=== PATIENT | female | born 1955 | race Caucasian/White ===

== ENCOUNTER → 2016-11-20 | Outpatient (CLI) | payer OTHER ==
[~2016-11-20] MED LIST: ASCO10003 PO; CALC-51 PO; CHOL1000 PO; CHOL1TAB42 PO; DILT-115 PO; EPP3/2 IM; MULT-190 PO; MULT1TAB22 PO; OMEG10007 PO; OMEP40CA PO; OMEP40CA41 PO
== END | disposition home or self-care (01) ==
LOC: C.PAPS 12:54
PROVIDERS: ATTEND Obstetrics & Gynecology
DX: Z12.4 Encounter for screening for malignant neoplasm of cervix (principal); Z87.42 Personal history of other diseases of the female genital tract; Z78.0 Asymptomatic menopausal state

== ENCOUNTER 2017-03-25 13:35 | Emergency (ER) | payer OTHER ==
[~2017-03-25] VITALS: Ht 162.6 cm; Wt 63.5 kg
[~2017-03-25 13:35] MED LIST changes: -CALC-51 PO; -CHOL1TAB42 PO; -MULT1TAB22 PO; -OMEG10007 PO; -OMEP40CA41 PO
[2017-03-25 13:50] VITALS: TEMP 36.9; Ht 162.6 cm; Wt 63.5 kg
[2017-03-25] MEDS ORDERED: OMEP40CA41 PO (14:53)
[2017-03-25] MEDS ORDERED: SODIUM CHLORIDE 0.9% 500ML 500 ML IV STA (15:32)
[2017-03-25] MEDS ORDERED: KETOROLAC TROMETHAMINE 30 MG/ML VIAL IV STA (15:32)
[2017-03-25 15:50] LABS: BASO % 0.5 %; BASO ABS # 0.04 K/uL (0-0.2); COMPLETE YES; EOS % 5.4 %; HEMATOCRIT 40.9 % (37-47); IG% 0.1 %; LYMPH % 28.7 %; LYMPH ABS # 2.54 K/uL (1.2-3.4); MEAN CELL VOLUME 95.3 fL (80-100); MEAN CORPUSCULAR HEMOGLOBIN 31.9 pg (25-34); MEAN CORPUSCULAR HGB CONC 33.5 g/dl (32-36); MEAN PLATELET VOLUME 9.8 fL (7.4-10.4); MONO % 5.9 %; NEUT % 59.4 %; PLATELET COUNT 293 K/uL (130-400); RED BLOOD COUNT 4.29 M/uL (4.2-5.4); WHITE BLOOD COUNT 8.85 K/uL (4.8-10.8)
--- NOTE | 2017-03-25 16:00 | EMERGENCY ROOM VISIT NOTE ---
History Report prepared by Maryam: Suzie Boyd Under the Supervision of: Dr. Kelechi Stevens D.O. First contact with patient: 15:04 Chief Complaint: HEAD PAIN Stated Complaint: HEAD PAIN, NUMBNESS History of Present Illness The patient is a 61 year old female who presents to the Emergency Room with complaints of a persistent headache starting about 8 days ago. She started having pain in the back of her head which has now resolved. She also complains of tingling and burning pain behind her ears bilaterally which radiates down to her neck. She also currently complains of frontal headache. She has been applying ice without relief. She has also been taking Aleve without relief. She denies any recent trauma or falls. She has a history of osteoporosis. Pt denies change in vision, fevers, chest pain, shortness of breath, nausea, vomiting, diarrhea, pain with urination, melena, and numbness/weakness in upper or lower extremities. Source of History: patient Onset: about 8 days ago Position: head Timing: other (persistent) Modifying Factors (Relieving): ice (without relief), other (Aleve without relief) Associated Symptoms: No SOB, No chest pain, No diarrhea, No fevers, No nausea, No numbness, No vomiting, No weakness Review of Systems See HPI for pertinent positives & negatives. A total of 10 systems reviewed and were otherwise negative. Past Medical & Surgical Medical Problems: (1) SVT (supraventricular tachycardia) Family History Cancer Hypertension Kidney disease Kidney stones Social History Smoking Status: Current Every Day Smoker Alcohol Use: occasionally, other Housing Status: lives with significant other Occupation Status: employed Current/Historical Medications Scheduled Ascorbic Acid (Vitamin C), 1 TAB PO 1000 Calcium Carbonate-Vitamin D (Calcium), 1 TAB PO DAILY Cholecalciferol (Vitamin D), 5,000 UNITS PO DAILY Diltiazem Hcl Ext Rel (Tiazac), 240 MG PO QAM Fish Oil (Cornelia-3), 1 CAP PO DAILY Multiple Vitamins W/ Minerals (One Daily For Women), 1 TAB PO 1000 Ocuvite Preservision (Ocuvite Preservision), 1 TAB PO QAM Scheduled PRN Epinephrine (Epipen), 0.3 MG IM UD PRN for ALLERGIC REACTION Allergies Coded Allergies: Crystal (Verified Allergy, Severe, ANAPHYLAXIS, 06/13/16) Pascale (Verified Allergy, Severe, ANAPHYLAXIS, 06/13/16) [place] (Verified Allergy, Severe, ANAPHYLAXIS, 06/13/16) 0 Tomato (Verified Allergy, Mild, TESTED POSITIVE ON SCRATCH TEST, 06/13/16) Beef (Unverified Allergy, Unknown, itch hives , 06/13/16) [place] Oil (Verified Allergy, Unknown, itch, 06/13/16) Milk (Verified Allergy, Unknown, HIVES, 06/13/16) Poultry Meal (Unverified Allergy, Unknown, itch hives , 06/13/16) Shellfish (Verified Allergy, Unknown, TESTED POSTITIVE ON SCRATCH TEST, ) Physical Exam Vital Signs Date Time Temp Pulse Resp B/P Pulse Ox O2 Delivery O2 Flow Rate FiO2 03/25/17 16:46 62 16 133/74 96 Room Air 03/25/17 14:57 78 20 140/78 96 Room Air 03/25/17 13:50 36.9 78 20 137/72 99 Room Air Physical Exam GENERAL: Sitting up in bed, no acute distress, non-toxic EYE EXAM: normal conjunctiva, PERRL and EOM's intact OROPHARYNX: no exudate, no erythema, lips, buccal mucosa, and tongue normal and mucous membranes are moist NECK: supple, no nuchal rigidity, no adenopathy, non-tender LUNGS: Clear to auscultation. Normal chest wall mechanics HEART: no murmurs, S1 normal and S2 normal ABDOMEN: abdomen soft, non-tender, normo-active bowel sounds, no masses, no rebound or guarding. BACK: Back is symmetrical on inspection and there is no deformity, no midline tenderness, no CVA tenderness. SKIN: no rashes and no bruising UPPER EXTREMITIES: upper extremities are grossly normal. LOWER EXTREMITIES: No pitting edema. Calves are equal bilaterally. NEURO EXAM: Normal sensorium, cranial nerves II-XII intact, normal speech, no weakness of arms, no weakness of legs. No drift. Finger to nose intact. Gross sensation intact. Medical Decision & Procedures ER Provider Diagnostic Interpretation: CT:Per my review, radiologist interpretation. CT SCAN OF THE CERVICAL SPINE CLINICAL HISTORY: Neck pain. COMPARISON STUDY: Radiographs of the cervical spine dated 02/14/2016. TECHNIQUE: CT scan of the cervical spine is performed from the skull base to the upper thoracic spine. Images are reviewed in the axial, sagittal, and coronal planes. IV contrast was not administered for this examination. CT DOSE: Reported separately under the concurrently performed CT scan of the brain. FINDINGS: Skeletal structures: The skeletal structures are osteopenic. There is no evidence of fracture or subluxation involving the cervical spine. Vertebral body height is maintained. There is minimal anterolisthesis at C4-C5. Alignment is otherwise preserved. Small anterior osteophytes are seen throughout. There is straightening of the cervical lordosis with reversal centered at C4-C5. The odontoid process and lateral masses are intact. The atlantoaxial articulation is preserved. The spinous processes appear intact. Degenerative endplate sclerosis is noted at C3-C4, C5-C6, and C6-C7. There is mild to moderate multilevel cervical spondylosis. Uncovertebral and facet arthropathy contribute to neural foraminal narrowing at several levels. This is greatest in the lower cervical region. Intervertebral discs: There is moderate degenerative disc space narrowing seen at C6-C7. Mild narrowing is seen from C3 -C4 through C5-C6. Central canal: Posterior disc osteophyte complexes at C3-C4, C4-C5, C5-C6, and C6-C7 likely contribute to mild acquired compromise of the central canal. Soft tissues: The prevertebral and paraspinous soft tissues are within normal limits. There is mild atherosclerotic calcification of the carotid bulbs. A Tornwaldt cyst containing calcifications is suggested in the midline pharynx and measures up to 1.7 cm. There are numerous calcified tonsilliths identified. Calvarium: The visualized calvarium at the skull base appears intact. Brain parenchyma: Partially visualized brain parenchyma the skull base is within normal limits. Sinuses and mastoids: The visualized paranasal sinuses are clear. The mastoid air cells are well pneumatized. Lung apices: Mild emphysematous change is suggested. Apical lung parenchyma is otherwise clear as imaged. IMPRESSION: 1. There is no evidence of fracture or subluxation involving the cervical spine. 2. Osteopenia and spondylotic change as above. Electronically signed by: Loyd Schultz M.D. 03/25/2017 4:49 PM Dictated Date/Time: 03/25/2017 4:[address] SCAN OF THE BRAIN WITHOUT IV CONTRAST CLINICAL HISTORY: Headache. COMPARISON STUDY: No priors. TECHNIQUE: Unenhanced axial CT scan of the brain is performed from the vertex to the skull base. Automated dose control exposure was utilized. CT DOSE: 927.29 mGy.cm FINDINGS: Brain parenchyma: The brain parenchyma is normal in appearance. There is no hemorrhage, mass effect, or evidence of acute territorial ischemia by CT criteria. Gutierrez-white matter is preserved. No extra-axial fluid collection is seen. Ventricles, sulci, cisterns: Normal in configuration. Intracranial vasculature: The visualized intracranial vasculature at the skull base is normal in appearance. Calvarium: Unremarkable. Sinuses and mastoids: The visualized paranasal sinuses are clear. The mastoid air cells are well pneumatized. Orbits: The bony orbits are grossly intact. IMPRESSION: No acute intracranial abnormality. Electronically signed by: Loyd Schultz M.D. 03/25/2017 4:40 PM Dictated Date/Time: 03/25/2017 4:38 PM Laboratory Results 03/25/17 15:38 Red Blood Count 4.29, Mean Corpuscular Volume 95.3, Mean Corpuscular Hemoglobin 31.9, Mean Corpuscular Hemoglobin Concent 33.5, Mean Platelet Volume 9.8, Neutrophils (%) (Auto) 59.4, Lymphocytes (%) (Auto) 28.7, Monocytes (%) (Auto) 5.9, Eosinophils (%) (Auto) 5.4, Basophils (%) (Auto) 0.5, Neutrophils # (Auto) 5.26, Lymphocytes # (Auto) 2.54, Monocytes # (Auto) 0.52, Eosinophils # (Auto) 0.48, Basophils # (Auto) 0.04 03/25/17 15:38 Test 03/25/17 15:38 White Blood Count 8.85 K/uL (4.8-10.8) Red Blood Count 4.29 M/uL (4.2-5.4) Hemoglobin 13.7 g/dL (12.0-16.0) Hematocrit 40.9 % (37-47) Mean Corpuscular Volume 95.3 fL (80-100) Mean Corpuscular Hemoglobin 31.9 pg (25-34) Mean Corpuscular Hemoglobin Concent 33.5 g/dl (32-36) Platelet Count 293 K/uL (130-400) Mean Platelet Volume 9.8 fL (7.4-10.4) Neutrophils (%) (Auto) 59.4 % Lymphocytes (%) (Auto) 28.7 % Monocytes (%) (Auto) 5.9 % Eosinophils (%) (Auto) 5.4 % Basophils (%) (Auto) 0.5 % Neutrophils # (Auto) 5.26 K/uL (1.4-6.5) Lymphocytes # (Auto) 2.54 K/uL (1.2-3.4) Monocytes # (Auto) 0.52 K/uL (0.11-0.59) Eosinophils # (Auto) 0.48 K/uL (0-0.5) Basophils # (Auto) 0.04 K/uL (0-0.2) RDW Standard Deviation 43.3 fL (36.4-46.3) RDW Coefficient of Variation 12.6 % (11.5-14.5) Immature Granulocyte % (Auto) 0.1 % Immature Granulocyte # (Auto) 0.01 K/uL (0.00-0.02) Anion Gap 6.0 mmol/L (3-11) Est Creatinine Clear Calc Drug Dose 57.5 ml/min Estimated GFR () 80.0 Estimated GFR (Non- 69.1 BUN/Creatinine Ratio 20.9 (10-20) Calcium Level 8.8 mg/dl (8.5-10.1) Laboratory results per my review. Medications Administered Medications (Trade) Dose Ordered Sig/Benji Route Start Time Stop Time Status Last Admin Dose Admin Sodium Chloride (Nss 500ml) 500 ml @ 999 mls/hr Q31M STAT IV 03/25/17 15:32 03/25/17 16:02 DC 03/25/17 15:44 999 MLS/HR Ketorolac Tromethamine (Toradol Inj) 30 mg NOW STAT IV 03/25/17 15:32 03/25/17 15:33 DC 03/25/17 15:44 30 MG ED Course ED COURSE: Vital signs were reviewed and showed hypertensive. The patients medical record was reviewed The above diagnostic studies were performed and reviewed. ED treatments and interventions as stated above. 1504: The patient was evaluated in room A11B. A complete history and physical examination was performed. 1532: Toradol Inj 30 mg IV, Sodium Chloride 500 ml @ 999 mls/hr IV 1602: I reevaluated the patient who is doing well. 1712: Upon reevaluation, the patient is resting comfortably.I discussed my findings with the patient and she understands and agrees with the treatment plan. Based on the patients age, coexisting illnesses, exam and lab findings the decision to treat as an outpatient was made. The patient remained stable while under my care. The patient appeared well at the time of discharge. Medical Decision Differential Diagnosis includes but is not limited to headache, tension headache , cluster headache, migraine, subarachnoid hemorrhage, meningitis, mass, central venous thrombus, concussion, trauma and epidural/subdural hemorrhage. Blood pressure screening: Patient was found to have normal blood pressure on screening and does not require follow-up. Medication Reconciliation: I attest that I have personally reviewed the patient' s current medication list. Patient is a 61-year-old female who presents the ER for posterior occipital headache and a burning/numbness feeling which initially encompassed her entire occiput but is now located slightly laterally from the midline of her head tracking to the top of her head. She notes the numbness has been improving. The headache did start on Friday. Headache came on gradually and is not the worse headache of her life. No fevers. She has no nuchal rigidity. She was referred in by her primary care doctor. CBC along with BMP was unremarkable. CT head and cervical spine were negative. Patient was updated in regards to her findings. She was given a bolus normal saline and Toradol. She had slight improvement of her symptoms and was discharged follow-up with her primary care doctor for likely occipital neuralgia. Discussed with Pt concerning signs and symptoms to watch out for. Pt was instructed to follow up with their PCP and discussed with the patient their option to return to the ED at anytime for persistent or worsening symptoms. The appropriate anticipatory guidance and out- patient management, including indications for return to the emergency department , were explained at length to the patient and understood. Impression Primary Impression: MILLAN (headache) Scribe Attestation The scribe's documentation has been prepared under my direction and personally reviewed by me in its entirety. I confirm that the note above accurately reflects all work, treatment, procedures, and medical decision making performed by me. Departure Information Dispostion Home / Self-Care Referrals No Doctor, Assigned (PCP) Forms HOME CARE DOCUMENTATION FORM, IMPORTANT VISIT INFORMATION, WORK / SCHOOL INSTRUCTIONS Patient Instructions Headache Pain, My [id number] Additional Instructions Please follow up with your primary care doctor with in the next 24 hours. Any worsening of your symptoms, please return to the ED immediately. This includes weakness or numbness in your arms or legs, change in vision, confusion, fevers greater than 100.4, or any other concerning signs or symptoms from your standpoint. Please use Motrin and Tylenol as needed for pain and heat when resting. Please refrain from any heavy lifting. Problem Qualifiers Primary Impression: MILLAN (headache) Headache type: unspecified Headache chronicity pattern: acute headache Intractability: not intractable Qualified Codes: R51 - Headache
[2017-03-25] MEDS ORDERED: OMEG10007 PO (16:01)
[2017-03-25] MEDS ORDERED: CHOL1TAB42 PO (16:01)
[2017-03-25] MEDS ORDERED: CALC-51 PO (16:02)
[2017-03-25 16:15] LABS: BUN/CREATININE RATIO 20.9 (10-20); CALCIUM 8.8 mg/dl (8.5-10.1); CREATININE 0.91 mg/dl (0.60-1.20); POTASSIUM 4.1 mmol/L (3.5-5.1)
--- NOTE | 2017-03-25 16:41 | DIAGNOSTIC IMAGING REPORT ---
CT SCAN OF THE BRAIN WITHOUT IV CONTRAST CLINICAL HISTORY: Headache. COMPARISON STUDY: No priors. TECHNIQUE: Unenhanced axial CT scan of the brain is performed from the vertex to the skull base. Automated dose control exposure was utilized. CT DOSE: 927.29 mGy.cm FINDINGS: Brain parenchyma: The brain parenchyma is normal in appearance. There is no hemorrhage, mass effect, or evidence of acute territorial ischemia by CT criteria. Gutierrez-white matter is preserved. No extra-axial fluid collection is seen. Ventricles, sulci, cisterns: Normal in configuration. Intracranial vasculature: The visualized intracranial vasculature at the skull base is normal in appearance. Calvarium: Unremarkable. Sinuses and mastoids: The visualized paranasal sinuses are clear. The mastoid air cells are well pneumatized. Orbits: The bony orbits are grossly intact. IMPRESSION: No acute intracranial abnormality. Electronically signed by: Loyd Schultz M.D. 03/25/2017 4:40 PM Dictated Date/Time: 03/25/2017 4:38 PM
[2017-03-25 16:46] VITALS: BP 133/74; PULSE 62; O2SAT 96
--- NOTE | 2017-03-25 16:50 | DIAGNOSTIC IMAGING REPORT ---
CT SCAN OF THE CERVICAL SPINE CLINICAL HISTORY: Neck pain. COMPARISON STUDY: Radiographs of the cervical spine dated 02/14/2016. TECHNIQUE: CT scan of the cervical spine is performed from the skull base to the upper thoracic spine. Images are reviewed in the axial, sagittal, and coronal planes. IV contrast was not administered for this examination. CT DOSE: Reported separately under the concurrently performed CT scan of the brain. FINDINGS: Skeletal structures: The skeletal structures are osteopenic. There is no evidence of fracture or subluxation involving the cervical spine. Vertebral body height is maintained. There is minimal anterolisthesis at C4-C5. Alignment is otherwise preserved. Small anterior osteophytes are seen throughout. There is straightening of the cervical lordosis with reversal centered at C4-C5. The odontoid process and lateral masses are intact. The atlantoaxial articulation is preserved. The spinous processes appear intact. Degenerative endplate sclerosis is noted at C3-C4, C5-C6, and C6-C7. There is mild to moderate multilevel cervical spondylosis. Uncovertebral and facet arthropathy contribute to neural foraminal narrowing at several levels. This is greatest in the lower cervical region. Intervertebral discs: There is moderate degenerative disc space narrowing seen at C6-C7. Mild narrowing is seen from C3 -C4 through C5-C6. Central canal: Posterior disc osteophyte complexes at C3-C4, C4-C5, C5-C6, and C6-C7 likely contribute to mild acquired compromise of the central canal. Soft tissues: The prevertebral and paraspinous soft tissues are within normal limits. There is mild atherosclerotic calcification of the carotid bulbs. A Tornwaldt cyst containing calcifications is suggested in the midline pharynx and measures up to 1.7 cm. There are numerous calcified tonsilliths identified. Calvarium: The visualized calvarium at the skull base appears intact. Brain parenchyma: Partially visualized brain parenchyma the skull base is within normal limits. Sinuses and mastoids: The visualized paranasal sinuses are clear. The mastoid air cells are well pneumatized. Lung apices: Mild emphysematous change is suggested. Apical lung parenchyma is otherwise clear as imaged. IMPRESSION: 1. There is no evidence of fracture or subluxation involving the cervical spine. 2. Osteopenia and spondylotic change as above. Electronically signed by: Loyd Schultz M.D. 03/25/2017 4:49 PM Dictated Date/Time: 03/25/2017 4:42 PM
[2017-03-25] MEDS ORDERED: MULT1TAB22 PO (20:19)
[2017-09-11] MEDS ORDERED: PSYL48.59 PO (08:23)
[2017-09-17] MEDS ORDERED: OXYC-57 PO (10:48)
[2017-09-17] MEDS ORDERED: KETO10TA PO (10:48)
[2017-09-17] MEDS ORDERED: ASPEC325 PO (10:48)
== END 2017-03-25 17:27 | disposition home or self-care (01) ==
LOC: C.EDB 13:39 → C.EDA 17:27
DX: R51 Headache (principal); M81.0 Age-related osteoporosis without current pathological fracture; I47.1 Supraventricular tachycardia; F17.200 Nicotine dependence, unspecified, uncomplicated; Z82.49 Family history of ischemic heart disease and other diseases of the circulatory system; Z84.1 Family history of disorders of kidney and ureter

== ENCOUNTER → 2017-07-05 | Outpatient (CLI) | payer OTHER ==
[~2017-07-05] MED LIST changes: +CALC-51 PO; -CHOL1000 PO; +CHOL1TAB42 PO; +MULT1TAB22 PO; +OMEG10007 PO; -OMEP40CA PO
[2017-07-05 14:09] LABS: ALT/SGPT 24 U/L (12-78); BLOOD UREA NITROGEN 15 mg/dl (7-18); BUN/CREATININE RATIO 18.3 (10-20); CALCIUM 9.1 mg/dl (8.5-10.1); CARBON DIOXIDE 27 mmol/L (21-32); CHLORIDE 105 mmol/L (98-107); CHOLESTEROL 194 mg/dl (0-200); GLUCOSE 94 mg/dl (70-99); POTASSIUM 3.9 mmol/L (3.5-5.1); SODIUM 139 mmol/L (136-145)
[2017-07-05 14:20] LABS: ALB/GLOB RATIO 1.3 (0.9-2); ALKALINE PHOSPHATASE 76 U/L (45-117); AST/SGOT 17 U/L (15-37); CHOLESTEROL/HDL RATIO 3.2; HDL CHOLESTEROL 61 mg/dl; LDL CHOLESTEROL CALCULATED 117 mg/dl; TRIGLYCERIDES 79 mg/dl (0-150); VERY LOW DENSITY LIPOPROT CALC 16 mg/dl
[2017-07-05 14:23] LABS: ESTIMATED AVERAGE GLUCOSE 111 mg/dl; HA1C FLAG Normal (Normal)
== END | disposition home or self-care (01) ==
LOC: C.LABBC 07:35
PROVIDERS: ATTEND Internal Medicine
DX: Z00.00 Encounter for general adult medical examination without abnormal findings (principal); Z11.59 Encounter for screening for other viral diseases

== ENCOUNTER → 2017-09-08 | Outpatient (CLI) | payer OTHER ==
[~2017-09-08] MED LIST changes: +PSYL48.59 PO
[2017-09-08 17:36] LABS: POTASSIUM 3.6 mmol/L (3.5-5.1)
[2017-09-08 17:42] LABS: BASO % 0.4 %; BASO ABS # 0.04 K/uL (0-0.2); COMPLETE YES; EOS % 4.4 %; HEMATOCRIT 41.8 % (37-47); IG% 0.2 %; LYMPH % 36.1 %; LYMPH ABS # 3.22 K/uL (1.2-3.4); MEAN CELL VOLUME 94.4 fL (80-100); MEAN CORPUSCULAR HEMOGLOBIN 32.5 pg (25-34); MEAN CORPUSCULAR HGB CONC 34.4 g/dl (32-36); MEAN PLATELET VOLUME 10.7 fL (7.4-10.4); MONO % 7.1 %; NEUT % 51.8 %; PLATELET COUNT 317 K/uL (130-400); RED BLOOD COUNT 4.43 M/uL (4.2-5.4); WHITE BLOOD COUNT 8.92 K/uL (4.8-10.8)
== END | disposition home or self-care (01) ==
LOC: C.LABBC 13:22
PROVIDERS: ATTEND Orthopaedic Surgery Sports Medicine
DX: Z01.812 Encounter for preprocedural laboratory examination (principal)

== ENCOUNTER → 2017-09-17 | Day surgery (SDC) | payer OTHER ==
[2017-09-11 08:20] VITALS: Ht 165.1 cm; Wt 61.4 kg
[~2017-09-17] VITALS: Ht 165.1 cm; Wt 61.4 kg
[~2017-09-17] MED LIST changes: +ASPEC325 PO; +ATROPINE SULFATE 0.1 MG/ML 5ML SYR IV PRN; +BUPIVACAINE 0.5 % 5 MG/1 ML PF 10ML VIAL ONE; +BUPIVACAINE/EPINEPHRINE 0.5% MPF 1:200,000 30 ML VIAL ONE; -CALC-51 PO; +CEFAZOLIN 1000MG IV PUSH 5 ML IV SCH; +CEFAZOLIN SOD 1000MG/5 ML IV PUSH IV ONE; +DEXAMETHASONE SOD INJ 4 MG/ML VIAL ONE; +EpHEDrine SULFATE 50MG/5ML SYR ONE; +EpHEDrine SULFATE INJ 50 MG/ML AMP IV PRN; +FENTANYL CITRATE INJ 50 MCG/1 ML 2 ML VIAL IV PRN; +FENTANYL CITRATE INJ 50 MCG/1 ML 2 ML VIAL ONE; +KETO10TA PO; +LACTATED RINGER'S 1000ML 1,000 ML IV SCH; +LIDOCAINE HCL 1% 20 ML VIAL ONE; +LIDOCAINE HCL 2% 2 ML VIAL (20MG/ML) ONE; +MIDAZOLAM HCL 1 MG/ML 2ML VIAL ONE; +ONDANSETRON INJ 2 MG/ML 2 ML VIAL IV PRN; +ONDANSETRON INJ 2 MG/ML 2 ML VIAL ONE; +OXYC-57 PO; +OXYCODONE/ACETAMINOPHEN 5-325 TAB PO PRN; +PROPOFOL IV EMULSION 10 MG/ML 20 ML VIAL IV ONE; +SODIUM CHLORIDE 0.9% 1000ML 1,000 ML IV SCH
--- NOTE | 2017-09-17 07:55 | History & Physical Bridge - SC ---
H&P Re-Evaluation Bridge Note: I have examined the patient, reviewed the History & Physical and in the interval since the performance of the History & Physical I have noted the following changes of clinical significance: No changes noted
--- NOTE | 2017-09-17 10:46 | [facility] Post Operative Brief Note ---
Immediate Operative Summary Operative Date Sep 17, 2017. Pre-Operative Diagnosis Left Great Toe First MTP Joint Osteoarthritis Post-Operative Diagnosis Same Procedure(s) Performed Left 1st Metatarsophalangeal Joint Arthrodesis Surgeon Dr. Abreu Range Mounter Surgeon(s) Danielle Jarquin PA-C Estimated Blood Loss MINIMAL Findings !st MTP Joint DJD Specimens None Anesthesia General Complication(s) None Disposition Recovery Room / PACU
--- NOTE | 2017-09-17 10:50 | Discharge Instructions-SurgCtr ---
Discharge Instructions Date of Service Sep 17, 2017. Visit Reason for Visit: Left Ankle/Foot Localized Primary Osteoarthritis Discharge Discharge Diagnosis / Problem: left 1st MTP joint djd Discharge Goals Goal(s): Decrease discomfort, Therapeutic intervention Medications Stopped Medications Name(s): Last took fish oil 09/08/17. Activity Recommendations Activity Limitations: per Instructions/Follow-up section Weightbearing Status: Left weightbearing (as tolerated on heel in post op boot ) Anesthesia . Post Anesthesia Instructions: If you have had General Anesthesia or IV Sedation: * Do not drive today. * Resume driving when surgeon permits. * Do not make important decisions or sign legal documents today. * Call surgeon for: 1. Temperature elevations greater than 101 degrees F. 2. Uncontrollable pain. 3. Excessive bleeding. 4. Persistent nausea and vomiting. 5. Medication intolerance (nausea, vomiting or rash). * For nausea and vomiting use only clear liquids such as: tea, soda, bouillon until nausea subsides, then gradually increase diet as tolerated. * If you have any concerns or questions, call your surgeon's office. If physician is unavailable and it is an emergency, call 911 or go to the nearest emergency room. . Instructions / Follow-Up Instructions / Follow-Up MEDICATIONS: * Resume previous medications unless instructed otherwise by your surgeon. * Always take pain medication on a full stomach or with food to avoid upset stomach. * Do not drink alcohol or drive while taking narcotics. * Ibuprofen or Tylenol may be taken if narcotic not needed. No ibuprofen while taking toradol SPECIAL CARE INSTRUCTIONS: __ None _x_ Keep extremity elevated and iced x 48 hours; apply ice 20-30 minutes 8-10 times/day. May remove at night. _x_ Crutches __ May discard when able _x_Post-op shoe __ 24 hrs/day __ Remove at night _x_ Dressing _x_ Maintain until seen in office, may shower with plastic over site __ Remove dressings in 24-48 hours and then may shower __ Cover incisions with band-aids after showering __ Do not remove steri-strips Call physician if chills or temperature rises above 102 degrees or pain unrelieved by prescribed pain medications. Office [phone] follow up in 2 weeks Diet Recommendations Home Diet: resume previous diet Procedures Procedures Performed: Left 1st Metatarsophalangeal Joint Arthrodesis Pending Studies Studies pending at discharge: no Medical Emergencies . Who to Call and When: Medical Emergencies: If at any time you feel your situation is an emergency, please call 911 immediately. . Non-Emergent Contact Non-Emergency issues call your: Surgeon . . "Provider Documentation" section prepared by Edwin Jarquin. .
[2017-09-17 11:29] VITALS: TEMP 37
[2017-09-17 12:00] VITALS: BP 137/73; PULSE 90; O2SAT 97
--- NOTE | 2017-09-17 12:05 | Anesthesia Progress Nt - [facility] ---
Anesthesia Post Op Note Date & Time Sep 17, 2017 at 12:05 Vital Signs Pain Intensity: 0 Vital Signs Past 12 Hours Date Time Temp Pulse Resp B/P (MAP) Pulse Ox O2 Delivery O2 Flow Rate FiO2 09/17/17 12:00 90 16 137/73 (94) 97 Room Air 09/17/17 11:29 37.0 16 135/76 (95) 97 Room Air 09/17/17 11:20 37.1 85 16 132/77 95 Room Air 09/17/17 11:17 89 14 94 09/17/17 11:17 90 14 09/17/17 11:16 143/75 09/17/17 11:12 87 32 95 09/17/17 11:12 88 32 09/17/17 11:10 135/75 09/17/17 11:07 87 16 96 09/17/17 11:07 87 16 09/17/17 11:06 139/76 09/17/17 11:02 88 18 09/17/17 11:02 89 18 99 09/17/17 11:01 128/69 09/17/17 10:57 84 17 09/17/17 10:57 84 17 98 09/17/17 10:56 131/66 09/17/17 10:52 87 17 09/17/17 10:52 87 17 99 09/17/17 10:51 86 19 09/17/17 10:51 86 19 96/91 100 09/17/17 10:46 37.0 85 12 135/71 100 Mask 8 09/17/17 10:46 91 09/17/17 10:46 91 135/71 98 09/17/17 07:46 36.9 76 16 125/78 (94) 99 Room Air Notes Mental Status: alert / awake / arousable, participated in evaluation Pt Amnestic to Procedure: Yes Nausea / Vomiting: adequately controlled Pain: adequately controlled Airway Patency, RR, SpO2: stable & adequate BP & HR: stable & adequate Hydration State: stable & adequate Anesthetic Complications: no major complications apparent
--- NOTE | 2017-09-17 13:46 | OPERATIVE REPORT ---
DATE OF OPERATION: 09/17/2017 SURGEON: Dr. Joey Abreu. 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 POSTOPERATIVE DIAGNOSIS: Same. PROCEDURE PERFORMED: Left first MTP joint arthrodesis. COMPLICATIONS: None. ESTIMATED BLOOD LOSS: Minimal. TOURNIQUET TIME: 72 minutes at 300 mmHg. ANESTHESIA: General. SPECIMENS: None. OPERATIVE INDICATIONS: The patient is a 62-year-old female, who is now about 15+ years out from a bilateral bunion surgeries. Over the past 5-10 years, she developed increased pain and discomfort in her big toe area, left side worse than right. X-rays showed progressive first MTP joint arthritis. She failed conservative treatment and elected to proceed with arthrodesis. OPERATIVE IMPLANTS: Operative implants consisted of: 1. A Biomet 4.0 x 36 mm partially threaded titanium lag screw with a small head. 2. ALPS/Biomet 2.5 left first MTP joint fusion plate. 3. A 2.5 fully threaded titanium nonlocking screws, 1 at 20 mm in length and 1 at 14 mm in length. 4. A titanium 2.5-mm fully threaded locking screws x5, 1 at 14 mm in length, 1 at 18 mm in length, and 3 at 20 mm in length. OPERATIVE PROCEDURE: The patient was taken to the operating room, identified and placed on the operating table in supine position. All contact areas were appropriately padded. IV antibiotics were provided by anesthesia team. General anesthetic was implemented by anesthesia team. Left side tourniquet was then placed. I then performed and ankle block with 30 cc of .5% Marcaine with epinephrind. The left lower extremity was then prepped and draped in the usual sterile fashion. The left leg was elevated and exsanguinated with Esmarch and tourniquet was placed at 300 mmHg. A dorsal medial approach of the first MTP joint was then performed using the previous incision. Blunt dissection was carried out through the subcutaneous tissues. A arthrotomy was made over the first MTP joint several millimeters medially to the EHL tendon. A circumferential dissection was carried out at the base of the proximal phalanx as well as the distal portion of the first metatarsal. I circumferentially dissected around the joint. Once adequate exposure was performed, I removed the osteophytes from the distal metatarsal head as well as the proximal phalanx. Attention was then drawn toward the first metatarsal. A 1.6-mm guidewire was placed in the central aspect of the first metatarsal head. I over reamed this with a 22-mm reamer. This seemed to fit appropriately. I did trim off some additional osteophytes. We reamed down to good bleeding bone. Attention was then drawn to the proximal phalanx. A 1.6-mm guidewire was placed in the central aspect of the proximal phalanx and over reamed with a 22-mm mating reamer. We reamed down to good cancellous bone. I then irrigated the wound extensively. I then used a 1.6-mm drill bit to create holes in the distal metatarsal head as well as the proximal portion of the proximal phalanx. I then placed a 1.6-mm guidewire in the central aspect of the metatarsal head and out the medial side, proximal in the metatarsal. I then reduced the joint and held it in an optimal position in about 5 degrees of valgus and about 15-20 degrees of dorsiflexion and neutral rotation. I passed the guidewire across the joint. I checked the location and it appeared appropriately. I then placed a 36-mm cancellous lag screw across the joint. This provided excellent fixation. The guidewire was removed. I then contoured the 2.5-mm left MTP fusion plate. I fixed it proximally with a single 2.5-mm cortical screw proximally in the oblong hole and then a similar 2.5-mm cortical screw distally to snug the plate down to bone. I then fixed it distally with two additional 2.5 locking screws and 3 additional proximal 2.5 locking screws. X-rays were brought in. All hardware was appropriately positioned in appropriate length. I irrigated the wound extensively. I did place some bone graft around the fusion site. I then repaired the capsule with 3-0 Vicryl suture in a [id number] fashion. The tourniquet was then let down for a tourniquet time 72 minutes. The wound was irrigated. Hemostasis was assured. The skin was then closed with 4-0 nylon suture in a horizontal mattress fashion. The foot was then cleaned and dried and a sterile dressing of Xeroform, 4 x 4, sterile Abdiel wrap, a sterile cast padding and Coban tape were applied followed by IPOS shoe. The patient then brought out of general anesthesia and transferred to the recovery room in stable condition. The patient tolerated the procedure well with no complications. All needle and sponge counts were correct at the end of the operation. I attest to the content of the Intraoperative Record and any orders documented therein. Any exceptions are noted below. LEVID
== END | disposition home or self-care (01) ==
LOC: X.SURG 07:27
PROVIDERS: ATTEND Orthopaedic Surgery Sports Medicine
DX: M19.072 Primary osteoarthritis, left ankle and foot (principal); I47.1 Supraventricular tachycardia; Z79.899 Other long term (current) drug therapy

== ENCOUNTER → 2017-10-31 | Outpatient (CLI) | payer OTHER ==
[~2017-10-31] MED LIST changes: +ASPI81TA28 PO; -ATROPINE SULFATE 0.1 MG/ML 5ML SYR IV PRN; -BUPIVACAINE 0.5 % 5 MG/1 ML PF 10ML VIAL ONE; -BUPIVACAINE/EPINEPHRINE 0.5% MPF 1:200,000 30 ML VIAL ONE; -CEFAZOLIN 1000MG IV PUSH 5 ML IV SCH; -CEFAZOLIN SOD 1000MG/5 ML IV PUSH IV ONE; -DEXAMETHASONE SOD INJ 4 MG/ML VIAL ONE; -EpHEDrine SULFATE 50MG/5ML SYR ONE; -EpHEDrine SULFATE INJ 50 MG/ML AMP IV PRN; -FENTANYL CITRATE INJ 50 MCG/1 ML 2 ML VIAL IV PRN; -FENTANYL CITRATE INJ 50 MCG/1 ML 2 ML VIAL ONE; -LACTATED RINGER'S 1000ML 1,000 ML IV SCH; -LIDOCAINE HCL 1% 20 ML VIAL ONE; -LIDOCAINE HCL 2% 2 ML VIAL (20MG/ML) ONE; -MIDAZOLAM HCL 1 MG/ML 2ML VIAL ONE; -ONDANSETRON INJ 2 MG/ML 2 ML VIAL IV PRN; -ONDANSETRON INJ 2 MG/ML 2 ML VIAL ONE; -OXYCODONE/ACETAMINOPHEN 5-325 TAB PO PRN; -PROPOFOL IV EMULSION 10 MG/ML 20 ML VIAL IV ONE; -SODIUM CHLORIDE 0.9% 1000ML 1,000 ML IV SCH
== END | disposition home or self-care (01) ==
LOC: C.LABBC 07:34
PROVIDERS: ATTEND Internal Medicine
DX: L28.2 Other prurigo (principal)

== ENCOUNTER → 2017-11-24 | Outpatient (CLI) | payer OTHER ==
[~2017-11-24] MED LIST changes: -ASPI81TA28 PO; -KETO10TA PO
--- NOTE | 2017-11-24 12:47 | DIAGNOSTIC IMAGING REPORT ---
TWO VIEW CHEST CLINICAL HISTORY: Acute bronchitis. FINDINGS: PA and lateral chest radiographs are compared to study dated 12/14/2015. The cardiomediastinal silhouette is unremarkable. Emphysema and chronic interstitial thickening are similar to previous. Atelectasis is noted at the left lung base. No airspace consolidation is seen typical for pneumonia and there is no pleural effusion. There is no pneumothorax. The skeletal structures are osteopenic. The bony thorax appears intact. IMPRESSION: Emphysema with no acute cardiopulmonary abnormality. Electronically signed by: Loyd Schultz M.D. 11/24/2017 12:46 PM Dictated Date/Time: 11/24/2017 12:45 PM
== END | disposition home or self-care (01) ==
LOC: C.RADBC 12:21
PROVIDERS: ATTEND Nurse Practitioner Adult Health
DX: J20.9 Acute bronchitis, unspecified (principal)

== ENCOUNTER → 2017-11-25 | Outpatient (CLI) | payer OTHER | END | disposition home or self-care (01) | LOC: C.PAPS 11:26 | PROVIDERS: ATTEND Obstetrics & Gynecology | DX: Z01.419 Encounter for gynecological examination (general) (routine) without abnormal findings (principal); N95.2 Postmenopausal atrophic vaginitis ==

== ENCOUNTER → 2017-12-06 | Outpatient (CLI) | payer OTHER ==
[2017-12-06 10:27] LABS: BASO % 0.7 %; BASO ABS # 0.06 K/uL (0-0.2); EOS % 4.6 %; EOS ABS # 0.41 K/uL (0-0.5); HEMATOCRIT 44.6 % (37-47); HEMOGLOBIN 14.9 g/dL (12.0-16.0); IG# 0.02 K/uL (0.00-0.02); LYMPH % 30.9 %; LYMPH ABS # 2.78 K/uL (1.2-3.4); MEAN CELL VOLUME 95.1 fL (80-100); MEAN CORPUSCULAR HEMOGLOBIN 31.8 pg (25-34); MEAN CORPUSCULAR HGB CONC 33.4 g/dl (32-36); MEAN PLATELET VOLUME 10.1 fL (7.4-10.4); MONO % 6.9 %; MONO ABS # 0.62 K/uL (0.11-0.59); NEUT % 56.7 %; NEUT ABS # 5.11 K/uL (1.4-6.5); PLATELET COUNT 365 K/uL (130-400); RED CELL DISTRIBUTION WIDTH CV 12.5 % (11.5-14.5); RED CELL DISTRIBUTION WIDTH SD 42.8 fL (36.4-46.3)
[2017-12-06 10:31] LABS: POTASSIUM 3.9 mmol/L (3.5-5.1)
== END | disposition home or self-care (01) ==
LOC: C.LAB1850 09:46
PROVIDERS: ATTEND Orthopaedic Surgery Sports Medicine
DX: Z01.812 Encounter for preprocedural laboratory examination (principal); M25.476 Effusion, unspecified foot

== ENCOUNTER → 2017-12-24 | Day surgery (SDC) | payer OTHER ==
[2017-12-10 09:02] VITALS: Ht 165.1 cm; Wt 61.4 kg
[~2017-12-24] VITALS: Ht 165.1 cm; Wt 61.4 kg
[~2017-12-24] MED LIST changes: -ASPEC325 PO; +ASPI81TA28 PO; +ATROPINE SULFATE 0.1 MG/ML 5ML SYR IV PRN; +BUPIVACAINE 0.5 % 5 MG/1 ML MPF 30ML VIAL ONE; +CEFAZOLIN 1000MG IV PUSH 7.5 ML IV SCH; +CEFAZOLIN SOD 1000MG/7.5 ML IV PUSH IV ONE; +DEXAMETHASONE SOD INJ 4 MG/ML VIAL ONE; +EpHEDrine SULFATE INJ 50 MG/ML AMP IV PRN; +FENTANYL CITRATE INJ 50 MCG/1 ML 2 ML VIAL ONE; +HYDROmorphone INJ 2 MG/ML SYR/VIAL IV PRN; +KETO10TA PO; +KETOROLAC TROMETHAMINE 30 MG/ML VIAL IV. PRN; +LABETALOL HCL IV 5 MG/ML 20ML IV PRN; +LACTATED RINGER'S 1000ML 1,000 ML IV SCH; +LIDOCAINE HCL 1% 20 ML VIAL ONE; +LIDOCAINE HCL 2% 2 ML VIAL (20MG/ML) ONE; +MIDAZOLAM HCL 1 MG/ML 2ML VIAL ONE; -OMEG10007 PO; +ONDANSETRON INJ 2 MG/ML 2 ML VIAL IV PRN; +ONDANSETRON INJ 2 MG/ML 2 ML VIAL ONE; +OXYCODONE/ACETAMINOPHEN 5-325 TAB PO PRN; +PHENYLEPHRINE 100MCG/ML 5ML SYR IV PRN; +PROPOFOL IV EMULSION 10 MG/ML 20 ML VIAL IV ONE; +SODIUM CHLORIDE 0.9% 1000ML 1,000 ML IV SCH
[2017-12-24] MEDS: BUPIVACAINE/EPINEPHRINE 0.5% MPF 1:200,000 30 ML VIAL ONE ×2 (14:32→15:52)
--- NOTE | 2017-12-24 15:58 | [facility] Post Operative Brief Note ---
Immediate Operative Summary Operative Date Dec 24, 2017. Pre-Operative Diagnosis Right Foot 1st MTP Joint DJD Post-Operative Diagnosis same Procedure(s) Performed Right First Metatarsophalangeal Joint Fusion Surgeon Dr. Mayda Abreu Associate Application Developer Surgeon(s) Cristiano Jarquin PA-C Estimated Blood Loss 10CC Findings Consistent with Post-Op Diagnosis Specimens NONE Drains None Anesthesia Type General Complication(s) none Disposition Accompanied Pt To Recovery: no Disposition: Recovery Room / PACU
--- NOTE | 2017-12-24 16:04 | Discharge Instructions-SurgCtr ---
Discharge Instructions Date of Service Dec 24, 2017. Visit Reason for Visit: Localized Primary Osteoarthritis Ankle &/Or Foot Discharge Discharge Diagnosis / Problem: MTP joint djd Discharge Goals Goal(s): Decrease discomfort, Therapeutic intervention Activity Recommendations Activity Limitations: per Instructions/Follow-up section Weightbearing Status: Right weightbearing (as tolerated on heel with post op shoe ) Anesthesia . Post Anesthesia Instructions: If you have had General Anesthesia or IV Sedation: * Do not drive today. * Resume driving when surgeon permits. * Do not make important decisions or sign legal documents today. * Call surgeon for: 1. Temperature elevations greater than 101 degrees F. 2. Uncontrollable pain. 3. Excessive bleeding. 4. Persistent nausea and vomiting. 5. Medication intolerance (nausea, vomiting or rash). * For nausea and vomiting use only clear liquids such as: tea, soda, bouillon until nausea subsides, then gradually increase diet as tolerated. * If you have any concerns or questions, call your surgeon's office. If physician is unavailable and it is an emergency, call 911 or go to the nearest emergency room. . Instructions / Follow-Up Instructions / Follow-Up MEDICATIONS: * Resume previous medications unless instructed otherwise by your surgeon. * Always take pain medication on a full stomach or with food to avoid upset stomach. * Do not drink alcohol or drive while taking narcotics. * Ibuprofen or Tylenol may be taken if narcotic not needed. no ibuprofen while taking toradol SPECIAL CARE INSTRUCTIONS: __ None _x_ Keep extremity elevated and iced x 48 hours; apply ice 20-30 minutes 8-10 times/day. May remove at night. _x_ Crutches __ May discard when able x__ Brace/Post-op shoe __ 24 hrs/day __ Remove at night _x_ Dressing _x_ Maintain until seen in office, may shower with plastic over site __ Remove dressings in 24-48 hours and then may shower __ Cover incisions with band-aids after showering __ Do not remove steri-strips Call physician if chills or temperature rises above 102 degrees or pain unrelieved by prescribed pain medications. Office [phone] follow up in 2 weeks Diet Recommendations Home Diet: resume previous diet Procedures Procedures Performed: Right First Metatarsophalangeal Joint Fusion Pending Studies Studies pending at discharge: no Medical Emergencies . Who to Call and When: Medical Emergencies: If at any time you feel your situation is an emergency, please call 911 immediately. . Non-Emergent Contact Non-Emergency issues call your: Surgeon . . "Provider Documentation" section prepared by Edwin Jarquin. .
[2017-12-24] MEDS: FENTANYL CITRATE INJ 50 MCG/1 ML 2 ML VIAL IV PRN ×2 (16:14→16:24)
--- NOTE | 2017-12-24 16:15 | DIAGNOSTIC IMAGING REPORT ---
INTRAOPERATIVE RIGHT FOOT 3 VIEWS CLINICAL HISTORY: RT FIRST MTPJ FUSION COMPARISON STUDY: None FLUOROSCOPY TIME: 8.4 seconds. NUMBER OF FLUOROSCOPIC IMAGES: 3 FINDINGS: 3 intraoperative fluoroscopic spot images reveal postsurgical changes of a first metatarsal phalangeal fusion. IMPRESSION: Intraoperative radiographs demonstrating postsurgical changes of a first metatarsal phalangeal joint arthrodesis Electronically signed by: Johnnie Stevens M.D. 12/24/2017 4:14 PM Dictated Date/Time: 12/24/2017 4:11 PM
[2017-12-24 16:58] VITALS: TEMP 37.1
[2017-12-24 17:11] VITALS: BP 133/81; PULSE 79; O2SAT 96
--- NOTE | 2017-12-24 17:13 | Anesthesia Progress Nt - [facility] ---
Anesthesia Post Op Note Date & Time Dec 24, 2017 at 17:13 Vital Signs Pain Intensity: 5.0 Vital Signs Past 12 Hours Date Time Temp Pulse Resp B/P (MAP) Pulse Ox O2 Delivery O2 Flow Rate FiO2 12/24/17 17:11 79 16 133/81 (98) 96 Room Air 12/24/17 16:58 37.1 88 16 145/76 (99) 95 Room Air 12/24/17 16:42 37.1 82 16 155/84 95 Room Air 12/24/17 16:39 156/81 12/24/17 16:38 84 14 95 12/24/17 16:38 84 14 12/24/17 16:33 83 17 100 12/24/17 16:33 82 17 12/24/17 16:32 157/100 12/24/17 16:28 78 20 12/24/17 16:28 77 20 98 12/24/17 16:26 146/77 12/24/17 16:23 78 12 99 12/24/17 16:23 78 12 12/24/17 16:21 142/78 12/24/17 16:18 79 13 12/24/17 16:18 79 13 97 12/24/17 16:16 132/78 12/24/17 16:13 80 11 99 12/24/17 16:13 80 11 12/24/17 16:12 81 14 12/24/17 16:12 81 14 98 12/24/17 16:11 139/79 12/24/17 16:07 84 16 98 12/24/17 16:07 84 16 12/24/17 16:06 129/87 12/24/17 16:03 135/80 12/24/17 16:03 36.7 88 16 135/80 98 Mask 6 12/24/17 12:21 36.7 79 16 126/71 (89) 95 Room Air Notes Mental Status: alert / awake / arousable, participated in evaluation Pt Amnestic to Procedure: Yes Nausea / Vomiting: adequately controlled Pain: adequately controlled Airway Patency, RR, SpO2: stable & adequate BP & HR: stable & adequate Hydration State: stable & adequate Anesthetic Complications: no major complications apparent
--- NOTE | 2017-12-24 21:45 | OPERATIVE REPORT ---
DATE OF OPERATION: 12/24/2017 SURGEON: Dr. Joey Abreu. CORRECTIONAL SUPPLY SUPERVISOR: MARILIA Madsen PREOPERATIVE DIAGNOSIS: Right first metatarsophalangeal joint degenerative joint disease. POSTOPERATIVE DIAGNOSIS: Same. PROCEDURE PERFORMED: Right first MTP joint arthrodesis. COMPLICATIONS: None. ESTIMATED BLOOD LOSS: 20 mL. TOURNIQUET TIME: Fifty six minutes at 300 mmHg. ANESTHESIA: General. SPECIMENS: None. OPERATIVE INDICATIONS: The patient is a 62-year-old female who has had a long history of bilateral foot pain and discomfort. She had bilateral bunion surgeries about 15 years ago. She developed persistent progressive pain in the first MTP joint in both feet, unresponsive to conservative care. She underwent a left first MTP joint arthrodesis about 3 months ago and has done well from this. She wanted to proceed with right foot surgery as well. OPERATIVE IMPLANTS: Operative implants consisted of: 1. Biomet 4.0 x 38 mm partially threaded titanium cannulated screw. 2. Biomet first MTP joint 2.5 mm fusion plate. 3. A 2.5 fully threaded locking screws x3, one of 14 mm length and one of 18 mm length and one of 22 mm length. 4. A 2.5 mm fully threaded nonlocking screws, one of 160 mm length and one of 18 mm length. 5. A multidirectional 2.5 mm locking screw, one of 20 mm length and one of 22 mm length. OPERATIVE PROCEDURE: The patient taken to the operating identified, and placed on the operating table in supine position. All contact areas were appropriately padded. IV antibiotics were provided by the anesthesia team. General anesthetic was implemented by anesthesia team. Right thigh tourniquet was then placed. The right ankle was then cleaned with alcohol. 20 mL of 0.5% Marcaine with epinephrine were then injected around the ankle to perform an ankle block. We adjusted the medial side of the foot as she is only going have a first MTP joint procedure. The right foot was then prepped with ChloraPrep and draped in usual sterile fashion. The right leg was elevated, exsanguinated and Esmarch and tourniquet was placed at 300 mmHg. A dorsal medial approach to the first MTP joint was then performed using her previous incision. Blunt dissection was carried through the capsule and subcutaneous tissues down to the joint capsule. Incision was made to the joint capsule directly down to bone. The proximal base of the proximal phalanx was then skeletonized as was the distal portion of the first metatarsal. I then removed the osteophytes off both joint surfaces. I then placed a 1.6 mm guidewire in the center aspect of the first metatarsal head and then reamed this with a 20 mm reamer. This seemed to be the right size, so we elected to use that on the proximal phalanx as well. A guidewire was placed in the central aspect of the proximal phalanx and over reamed with the 20 mm cup reamer. I then took a 1.6 mm drill bit and drilled several holes in both the distal first metatarsal as well as the proximal phalanx. I then irrigated the wound extensively. I then placed a guidewire for the 4.0 cannulated screw set across the joint. I first placed this beginning inside the joint and extending it proximally, reduced the toe in ideal position and passed the guidewire across the joint. We have put the toe in about 20 degrees dorsiflexion and 5-10 degrees of valgus. I made sure it was not rotated and also was not impinging on the other toes. Once this was verified, I placed a single 4.0 partially threaded titanium screw over the wire. This provided good fixation of the bone. I then placed the Biomet dorsal right first MTP joint arthrodesis plate in the dorsal aspect of the foot and fixed it proximally with a single 2.5 mm cortical screw. This was then fixed distally with an additional 2.5 mm fully threaded cortical screw. Position was verified. I then filled the remaining of the holes with a combination of a 2.5 mm locking screws as well as 2.5 mm variable angle locking screws. Once this was complete, some final x-rays were obtained. I did irrigate the wound extensively. I injected locally with an additional 10 mL of 0.5% Marcaine with epinephrine. The tourniquet was then let down for a total tourniquet time 56 minutes. Hemostasis was assured with use of electrocautery. The joint capsule was then closed with 3-0 Vicryl suture in a [id number] fashion. The skin was then closed with 4-0 nylon suture in a horizontal mattress fashion. The foot was then cleaned and dried and a sterile dressing of Xeroform, 4 x 4's, sterile cast padding, Coban wrap followed by IPOS shoe were applied. The patient then brought out of general anesthesia and transferred to the recovery room in stable condition. The patient tolerated the procedure with no complications. All needle and sponge counts were correct at the end of the operation. I attest to the content of the Intraoperative Record and any orders documented therein. Any exception s are noted below.
== END | disposition home or self-care (01) ==
LOC: X.SURG 12:01
PROVIDERS: ATTEND Orthopaedic Surgery Sports Medicine
DX: M19.071 Primary osteoarthritis, right ankle and foot (principal); F17.200 Nicotine dependence, unspecified, uncomplicated; Z91.018 Allergy to other foods

== ENCOUNTER 2020-10-09 04:15 | Inpatient (IN) ==
[2020-10-09] MEDS ORDERED: MoRPHine SULFATE 10 MG/ML CARP/VIAL IV STA (04:40)
[2020-10-09] MEDS ORDERED: ONDANSETRON INJ 2 MG/ML 2 ML VIAL IV STA (04:40)
[2020-10-09] MEDS ORDERED: SODIUM CHLORIDE 0.9% 1000ML 1,000 ML IV ONE (04:40)
--- NOTE | 2020-10-09 04:46 | Emergency Department Note ---
History of Present Illness General Chief complaint: Abdominal Pain Stated complaint: SEVERE ABD PAIN Time Seen by Provider: 10/09/20 04:25 Source: patient Mode of arrival: ambulatory Limitations: no limitations History of Present Illness Maximum Pain Intensity: 8 This patient is a 65-year-old female who presents to the emergency department for evaluation of abdominal pain. Patient reports that her pain started ye sterday evening, about 9 hours prior to arrival. She reports she has been having waves of pain every 10 seconds. Pain is primarily in the right side of the abdomen. She has had multiple episodes of vomiting. She states her pain is sharp and rates her discomfort an 8/10. She did not take any medications prior to arrival. Nothing seems to make the pain better or worse. Patient has a history of ovarian cancer with recurrence. She has had prior hysterectomy, cholecystectomy and appendectomy. She had a recent biopsy of a tumor in her right upper quadrant. She sees oncology at [facility] in [place]. Patient does report that she had a small bowel movement tonight. Home Medications Medication Instructions Recorded Confirmed Type ascorbic acid (vitamin C) [Vitamin 1 g PO QAM 04/15/19 10/09/20 History C] epinephrine [EpiPen] 0.3 mg IM Q3H PRN 04/15/19 10/09/20 History multivitamin 1 cap PO QAM 04/15/19 10/09/20 History cholecalciferol (vitamin D3) 25 1,000 units PO QAM cap 04/22/19 10/09/20 History mcg (1,000 unit) capsule diltiazem HCl 240 mg capsule,24 240 mg PO QAM #90 cap 03/10/20 10/09/20 Rx hr,extended release calcium carbonate 500 mg PO DAILY 10/09/20 10/09/20 History niraparib [Zejula] 200 mg PO DAILY 10/09/20 10/09/20 History prochlorperazine maleate 10 mg PO UD PRN 10/09/20 10/09/20 History Allergies Allergy/AdvReac Type Severity Reaction Status Date / Time cashew nut Allergy Severe ANAPHYLAXIS Verified 10/09/20 04:48 pecan nut Allergy Severe ANAPHYLAXIS Verified 10/09/20 04:48 walnut Allergy Severe ANAPHYLAXIS Verified 10/09/20 04:48 Beef Containing Products Allergy Intermediate itch hives Verified 10/09/20 04:48 milk Allergy Intermediate HIVES Verified 10/09/20 04:48 Poultry Allergy Intermediate itch hives Verified 10/09/20 04:48 corn Allergy Mild itch Verified 10/09/20 04:48 shellfish derived Allergy Mild TESTED Verified 10/09/20 04:48 POSTITIVE ON SCRATCH TEST tomato Allergy Mild TESTED Verified 10/09/20 04:48 POSITIVE ON SCRATCH TEST hazelnut Allergy Unknown unknown Verified 10/09/20 04:48 per testing Histamine H2 Inhibitors Allergy Unknown unknown Verified 10/09/20 04:48 per tesing nut - unspecified Allergy Unknown unknown Verified 10/09/20 04:48 per testing peas Allergy Unknown unknown Verified 10/09/20 04:48 per testing pistachio nut Allergy Unknown unknown Verified 10/09/20 04:48 per testing scallops Allergy Unknown unknown Verified 10/09/20 04:48 per testing shrimp Allergy Unknown unknown Verified 10/09/20 04:48 per testing Grain Allergy Unknown unknown Uncoded 10/09/20 04:48 per testing Past Med/Surg History Medical History (Updated 10/09/20 @ 08:08 by Barb So PA-C) Adult situational stress disorder Anxiety Chronic back pain Degenerative cervical disc GERD (gastroesophageal reflux disease) Hyperlipidemia Macular degeneration, dry Menopause Osteoarthritis Ovarian cancer 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 SVT (supraventricular tachycardia) Symptomatic cholelithiasis Surgical History H/O lumpectomy left breast--benign History of colonoscopy History of hysterectomy for cancer hyster, bso, staging 3 C ov ca History of laparoscopy OVARIAN CYST REMOVED History of ovarian cystectomy History of tooth extraction some upper and lower teeth History of vascular access device right chest wall--[place]port Hx laparoscopic cholecystectomy Hx laparoscopic cholecystectomy Dr. Rajesh Kraft on 05/03/19 Hx of foot surgery BILATERAL--hardware in place S/P dilation and curettage Family History Unknown Osteoporosis Father Hypertension Hyperlipidemia Hx of malignant mesothelioma Lung cancer Mother Hyperlipidemia Hypertension [place] disease Breast cancer CKD (chronic kidney disease) Grandfather Renal failure Brother Congenital heart disease Gluten intolerance Grandmother (Maternal) Occlusion of intestine or colon Denies family history of Ovarian cancer Prostate cancer Colorectal cancer Social History (Updated 10/09/20 @ 07:55 by Antonietta Soto MD) Smoking Status: Former smoker Cigarettes Per Day: 15; Second Hand Exposure: Yes (parents smoked); Hx Alcohol Use: Yes Alcohol type: wine Hx Substance Use: No Preferred Language: Zambian Communication Ability: Effective [employer] Supervisor Required: No Beliefs That Will Affect Care: None marital status: Current Living Situation: Alone current occupational status: employed Feels Safe at Home: Yes Childhood Exposure to Second-Hand Smoke: Yes Dental Care, Regularly: Yes Physical Activity Frequency: Daily Seatbelt Use: always Sunscreen Use: No Assistive Devices: Denture - Upper, Denture - Lower and Glasses Review of Systems A total of 10 systems reviewed and were otherwise negative Physical Exam Vital Signs Vital Signs - 24 hr 10/09/20 04:20 10/09/20 05:03 10/09/20 06:35 Temperature 36.5 C Temperature Source Oral Pulse Rate 107 H Pulse Rate [Right Finger] 68 Respiratory Rate 20 14 Respiratory Effort / Characteristics Non-Labored Non-Labored Spontaneous Respiratory Depth Normal Normal Blood Pressure 118/82 Blood Pressure [Right Arm] 140/85 Blood Pressure Mean 94 Blood Pressure Mean [Right Arm] 103 Pulse Oximetry 100 94 99 Oxygen Delivery Method Room Air Room Air Room Air Sepsis Recent Fever Within 48 Hours No Sepsis New/Unexplained Change in Mental Status N/A Sepsis Action Taken by Nursing No Action Required VITALS: Vitals are noted on the nurse's note and reviewed by myself. Vital signs stable. GENERAL: This is a 65-year-old female, in no acute distress but uncomfortable appearing, well-developed well-nourished. SKIN: The skin was without rashes. EARS: External auditory canals clear, tympanic membranes pearly more without erythema or effusion bilaterally. EYES: Pupils equal round and reactive to light and accommodation. NOSE: Patent, turbinates without inflammation or discharge. MOUTH: Mucous membranes moist. Tonsils are not enlarged. Pharynx without erythema or exudate. NECK: Supple without nuchal rigidity. No lymphadenopathy. HEART: Regular rate and rhythm without murmurs gallops or rubs. LUNGS: Clear to auscultation bilaterally without wheezes, rales or rhonchi. ABDOMEN: Positive bowel sounds x 4. There is a palpable mass in the right midabdomen. Tenderness to palpation in the right upper quadrant, right lower quadrant and left lower quadrant. No guarding or rebound tenderness. NEURO: Patient was alert and oriented to person place and time. Course Consultations Consultation #1: Dr. Soto - [facility] hospitalist Administered Medications Discontinued Medications Sodium Chloride (Nss 1000ml) 1,000 mls @ 999 mls/hr IV .Q1H1M ONE Stop: 10/09/20 05:40 Last Infusion: 10/09/20 06:16 Dose: 0 mls/hr Documented by: [id number] Admin: 10/09/20 04:58 Dose: 999 mls/hr Documented by: [id number] Ioversol (Ioversol 100ml) 100 ml IV ONCE ONE Stop: 10/09/20 06:24 Last Admin: 10/09/20 06:23 Dose: 95 ml Documented by: [id number] Morphine Sulfate (Morphine Sulfate 10 Mg/Ml Carp/Vial) 6 mg IV NOW STA Stop: 10/09/20 04:41 Last Admin: 10/09/20 04:57 Dose: 6 mg Documented by: [id number] Ondansetron HCl (Ondansetron Inj 2 Mg/Ml 2 Ml Vial) 4 mg IV NOW STA Stop: 10/09/20 04:41 Last Admin: 10/09/20 04:57 Dose: 4 mg Documented by: [id number] Medical Decision Making Differential Diagnosis Differential diagnosis includes appendicitis, diverticulitis, bowel obstruction, inflammatory bowel disease, renal colic, PUD, biliary pathology, pancreatitis, mesenteric ischemia, aortic pathology, infection, genitourinary, UTI, perforated viscus, among others. Home Medications Current Medication List: was personally reviewed by me Laboratory Data Attestation: I reviewed the patient's lab results. Result diagrams: 10/09/20 04:50 10/09/20 04:50 Lab Results 10/09/20 10/09/20 10/09/20 Range/Units 04:50 04:50 Unknown WBC 12.37 H (4.8-10.8) K/uL RBC 4.14 L (4.2-5.4) M/uL Hgb 14.6 (12.0-16.0) g/dL Hct 42.0 (37-47) % MCV 101.4 H (80-100) fL MCH 35.3 H (25-34) pg MCHC 34.8 (32-36) g/dL RDW Std Deviation 44.8 (36.4-46.3) fL RDW Coeff of Agnes 12.1 (11.5-14.5) % Plt Count 277 (130-400) K/uL MPV 10.0 (7.4-10.4) fL Immature Gran % (Auto) 0.2 % Neut % (Auto) 89.8 % Lymph % (Auto) 6.0 % [place] % (Auto) 3.7 % Eos % (Auto) 0.2 % Baso % (Auto) 0.1 % Neut # (Auto) 11.11 H (1.4-6.5) K/uL Lymph # (Auto) 0.74 L (1.2-3.4) K/uL [place] # (Auto) 0.46 (0.11-0.59) K/uL Eos # (Auto) 0.02 (0-0.5) K/uL Baso # (Auto) 0.01 (0-0.2) K/uL Immature Gran # (Auto) 0.03 H (0.00-0.02) K/uL Sodium 136 (136-145) mmol/L Potassium 4.0 (3.5-5.1) mmol/L Chloride 101 (98-107) mmol/L Carbon Dioxide 30 (21-32) mmol/L Anion Gap 5.0 (3-11) BUN 20 H (7-18) mg/dl Creatinine 0.87 (0.6-1.2) mg/dl Est Cr Clr Drug Dosing 57.2 ml/min Est GFR ( Amer) 82.2 Est GFR (Non-Af Amer) 70.9 BUN/Creatinine Ratio 23.5 H (10-20) Glucose 156 H (70-99) mg/dl Calcium 9.9 (8.5-10.1) mg/dl Total Bilirubin 0.4 (0.2-1) mg/dl AST 21 (15-37) U/L ALT 26 (12-78) U/L Alkaline Phosphatase 114 (45-117) U/L Total Protein 7.5 (6.4-8.2) gm/dl Albumin 4.3 (3.4-5.0) gm/dl Globulin 3.2 (2.5-4.0) gm/dl Albumin/Globulin Ratio 1.3 (0.9-2) Lipase 99 (73-393) U/L SARS-CoV-2 Ag (Rapid) Negative (Negative) Imaging Data Attestation: I personally reviewed and interpreted this imaging study as follows: Radiologist's Impression: CT ABDOMEN & PELVIS With Contrast: Impression: Dilated small bowel loops in the abdomen and pelvis with transition point in the pelvis is preceded by a small bowel feces sign. This is suggestive of partial distal small bowel obstruction Moderate ascites Cholecystectomy. Grade 1 L3/4 and L4/5 spondylolisthesis. Radiologist: Elmer Iqbal MD MDM Narrative The patient is a 65-year-old female with past medical history of metastatic ovarian cancer and recurrence who presents today complaining of vomiting and abdominal pain. Labs revealed a leukocytosis of 12,000. Patient mildly hyperglycemic with a glucose of 156. Kidney function within normal limits. LFTs, lipase within normal limits. CT of the abdomen/pelvis was performed and read by stat rad, showing a partial small bowel obstruction. NG tube was inserted. Patient received IV morphine and Zofran for symptoms with significant improvement. The [facility] hospitalist service was consulted and agreed to evaluate the patient for further care. Continuous heel stiffener: Order was placed for continuous heel stiffener. Patient was placed on the heel stiffener. Patient was noted to be in normal sinus rhythm at an initial rate of 100 bpm. Impression & Plan Small bowel obstruction Discharge Plan Visit Data Chief Complaint: Abdominal Pain Stated Complaint: SEVERE ABD PAIN ED Provider: Emile Ge ED Midlevel Provider: Barb So Discharge Problem: Small bowel obstruction Forms Stand Alone Forms: My [facility] Prescriptions Prescriptions: No Action diltiazem HCl 240 mg capsule,extended release 24 hr 240 mg PO QAM Qty: 90 RF: 3 cholecalciferol (vitamin D3) 1,000 unit capsule 1,000 units PO QAM RF: 0 ascorbic acid (vitamin C) [Vitamin C] 1,000 mg Tablet 1 g PO QAM RF: 0 epinephrine [EpiPen] 0.3 mg/0.3 mL Auto-Injector 0.3 mg IM Q3H PRN (Reason: ALLERGIES) RF: 0 multivitamin Capsule 1 cap PO QAM RF: 0 prochlorperazine maleate 10 mg tablet 10 mg PO UD PRN (Reason: Nausea) RF: 0 Zejula 100 mg capsule 200 mg PO DAILY RF: 0 calcium carbonate 500 mg calcium (1,250 mg) Tablet 500 mg PO DAILY RF: 0
[2020-10-09 05:37] LABS: Albumin Level 4.3 gm/dl (3.4-5.0); BUN Creatinine Ratio 23.5 (10-20); Calcium 9.9 mg/dl (8.5-10.1); Creatinine Clr Calc Pharmacy 57.2 ml/min; Est GFR (African American) 82.2; Est GFR (Non-African American) 70.9
[2020-10-09 05:40] LABS: Albumin Globulin Ratio 1.3 (0.9-2); Basophils # (auto) 0.01 K/uL (0-0.2); Basophils % (auto) 0.1 %; Bilirubin,Total 0.4 mg/dl (0.2-1); Eosinophils # (auto) 0.02 K/uL (0-0.5); Eosinophils % (auto) 0.2 %; Globulin 3.2 gm/dl (2.5-4.0); Hemoglobin 14.6 g/dL (12.0-16.0); Immature Granulocytes # (auto) 0.03 K/uL (0.00-0.02); Immature Granulocytes % (auto) 0.2 %; Lymphocytes # (auto) 0.74 K/uL (1.2-3.4); Mean Corpuscular Hemoglobin 35.3 pg (25-34); Mean Corpuscular Hgb Conc 34.8 g/dL (32-36); Mean Corpuscular Volume 101.4 fL (80-100); Monocytes # (auto) 0.46 K/uL (0.11-0.59); Monocytes % (auto) 3.7 %; Neutrophils # (auto) 11.11 K/uL (1.4-6.5); Neutrophils % (auto) 89.8 %; Platelet Count 277 K/uL (130-400); RDW Coefficient of Variation 12.1 % (11.5-14.5); RDW Standard Deviation 44.8 fL (36.4-46.3); Red Blood Count 4.14 M/uL (4.2-5.4); Total Protein 7.5 gm/dl (6.4-8.2); White Blood Count 12.37 K/uL (4.8-10.8)
[2020-10-09] MEDS ORDERED: OPTIRAY 320 100ml IV ONE (06:23)
--- NOTE | 2020-10-09 07:56 | History & Physical Report ---
Date of Service October 09, 2020 Assessment & Plan (1) Partial small bowel obstruction: Here with partial small bowel obstruction most likely secondary to adhesive disease in the setting of metastatic ovarian cancer and history of DENISSE- BSO, appendectomy, cholecystectomy in the past Admit to medical floor telemetry Continue NG tube Continue IV fluids for hydration replace electrolytes as needed Follow CBC and CMP in the morning Leukocytosis most likely secondary to obstruction No need for antibiotics at this point Consult general surgery in case of need for surgical intervention Continue IV morphine as needed for pain Continue IV Zofran as needed for nausea Give 1 dose of IV Compazine now -Holding all home p.o. meds (2) Smoking greater than 30 pack years: Encourage continued cessation (3) Ovarian cancer: Metastatic ovarian cancer, currently on oral chemotherapy pill-we will have this on hold With recent possible recurrence in the liver (4) SVT (supraventricular tachycardia): No tachycardia here in the ER We will give IV diltiazem as needed if has SVT (5) Leukocytosis: As above, most likely secondary to partial small bowel obstruction Follow CBC in the morning No need for antibiotics at this point (6) DVT prophylaxis: SCDs only in case of need for surgical intervention Otherwise, would add on Lovenox if it appears she will not need any surgical intervention Disposition-admit to medical floor with telemetry Full code History of Present Illness Chief Complaint: Abdominal pain, nausea vomiting Primary Care Provider: Jonah Shannon MD This patient is a 65-year-old female with history of metastatic ovarian cancer status post debulking of tumor and DENISSE-BSO and chemotherapy, SVT, hyperglycemia, colon polyps, pulmonary nodules, and current smoker who presents to the ER with abdominal pain that started last evening primarily in the right side of the abdomen. She also had multiple episodes of vomiting. Pain is rated as an 8 out of 10 in severity and is sharp in nature. Nothing seems to make it better or worse. She has a history of ovarian cancer with recurrence possibly in the liver as above and is status post surgical resection. She is also had a prior cholecystectomy and appendectomy. In the ER she was found to have an elevated WBC count of 12 with neutrophilic predominance, CMP was normal, lipase negative, Covid test was negative. A CT of the abdomen pelvis with contrast showed dilated small bowel loops in the abdomen pelvis with transition point in the pelvis preceded by small bowel feces sign. This was suggestive of a partial distal small bowel obstruction. She also had moderate ascites. An NG tube was ordered by the ER provider and she was given IV morphine and IV Zofran as well as IV fluids. Allergies Allergy/AdvReac Type Severity Reaction Status Date / Time cashew nut Allergy Severe ANAPHYLAXIS Verified 10/09/20 04:48 pecan nut Allergy Severe ANAPHYLAXIS Verified 10/09/20 04:48 walnut Allergy Severe ANAPHYLAXIS Verified 10/09/20 04:48 Beef Containing Products Allergy Intermediate itch hives Verified 10/09/20 04:48 milk Allergy Intermediate HIVES Verified 10/09/20 04:48 Poultry Allergy Intermediate itch hives Verified 10/09/20 04:48 corn Allergy Mild itch Verified 10/09/20 04:48 shellfish derived Allergy Mild TESTED Verified 10/09/20 04:48 POSTITIVE ON SCRATCH TEST tomato Allergy Mild TESTED Verified 10/09/20 04:48 POSITIVE ON SCRATCH TEST hazelnut Allergy Unknown unknown Verified 10/09/20 04:48 per testing Histamine H2 Inhibitors Allergy Unknown unknown Verified 10/09/20 04:48 per tesing nut - unspecified Allergy Unknown unknown Verified 10/09/20 04:48 per testing peas Allergy Unknown unknown Verified 10/09/20 04:48 per testing pistachio nut Allergy Unknown unknown Verified 10/09/20 04:48 per testing scallops Allergy Unknown unknown Verified 10/09/20 04:48 per testing shrimp Allergy Unknown unknown Verified 10/09/20 04:48 per testing Grain Allergy Unknown unknown Uncoded 10/09/20 04:48 per testing Home Medications Medication Instructions Recorded Confirmed Type ascorbic acid (vitamin C) [Vitamin 1 g PO QAM 04/15/19 10/09/20 History C] epinephrine [EpiPen] 0.3 mg IM Q3H PRN 04/15/19 10/09/20 History multivitamin 1 cap PO QAM 04/15/19 10/09/20 History cholecalciferol (vitamin D3) 25 1,000 units PO QAM cap 04/22/19 10/09/20 History mcg (1,000 unit) capsule diltiazem HCl 240 mg capsule,24 240 mg PO QAM #90 cap 03/10/20 10/09/20 Rx hr,extended release calcium carbonate 500 mg PO DAILY 10/09/20 10/09/20 History niraparib [Zejula] 200 mg PO DAILY 10/09/20 10/09/20 History prochlorperazine maleate 10 mg PO UD PRN 10/09/20 10/09/20 History Past Med/Surg History Medical History (Updated 10/09/20 @ 08:08 by Barb So PA-C) Adult situational stress disorder Anxiety Chronic back pain Degenerative cervical disc GERD (gastroesophageal reflux disease) Hyperlipidemia Macular degeneration, dry Menopause Osteoarthritis Ovarian cancer 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 SVT (supraventricular tachycardia) Symptomatic cholelithiasis Surgical History H/O lumpectomy left breast--benign History of colonoscopy History of hysterectomy for cancer hyster, bso, staging 3 C ov ca History of laparoscopy OVARIAN CYST REMOVED History of ovarian cystectomy History of tooth extraction some upper and lower teeth History of vascular access device right chest wall--Aport Hx laparoscopic cholecystectomy Hx laparoscopic cholecystectomy Dr. Rajesh Kraft on 05/03/19 Hx of foot surgery BILATERAL--hardware in place S/P dilation and curettage Family History Unknown Osteoporosis Father Hypertension Hyperlipidemia Hx of malignant mesothelioma Lung cancer Mother Hyperlipidemia Hypertension [place] disease Breast cancer CKD (chronic kidney disease) Grandfather Renal failure Brother Congenital heart disease Gluten intolerance Grandmother (Maternal) Occlusion of intestine or colon Denies family history of Ovarian cancer Prostate cancer Colorectal cancer Social History (Updated 10/09/20 @ 07:55 by Antonietta Soto MD) Smoking Status: Former smoker Cigarettes Per Day: 15; Second Hand Exposure: Yes (parents smoked); Hx Alcohol Use: Yes Alcohol type: wine Hx Substance Use: No Preferred Language: Icelandic Communication Ability: Effective Italian Teacher Required: No Beliefs That Will Affect Care: None marital status: Current Living Situation: Alone current occupational status: employed Feels Safe at Home: Yes Childhood Exposure to Second-Hand Smoke: Yes Dental Care, Regularly: Yes Physical Activity Frequency: Daily Seatbelt Use: always Sunscreen Use: No Assistive Devices: Denture - Upper, Denture - Lower and Glasses Review of Systems Review of Systems: All systems reviewed & are unremarkable except as noted in HPI & below Physical Exam Constitutional: WD/WN, vitals as above Eyes: + anicteric sclerae ENMT: Ears: no hearing impairment and no external ear abnormality Neck: trachea midline, no thyromegaly Respiratory: normal respiratory effort; no respiratory distress Auscultation: + crackles (At left base which clear with deep breathing); no rhonchi and no wheezes Cardiovascular: RRR, no murmur, no edema Chest (Breasts): Chest: normal inspection of chest Gastrointestinal (Abdomen): Inspection/Auscultation: + abdomen distended (Mild) and + hypoactive bowel sounds; + abdomen abnormal to inspection (Incisional scars from previous surgeries noted) Percussion/Palpation: + abdomen tender (In right side of abdomen without guarding or rebound tenderness) and abdomen soft; no guarding NG tube in place draining thick yellow fluid Musculoskeletal: Extremities: extremities normal to inspection; no cyanosis and no clubbing Skin: no rashes, warm and dry Neurologic: moves all extremities and awake; no focal motor deficits Psychiatric: A+Ox3, euthymic affect Lymphatic: no lymphedema Results & Data Results & Data ([facility]) Vital Signs (Past 12 Hours) Vital Signs Temp Pulse Pulse Resp BP BP Pulse Ox 10/09/20 06:35 68 14 140/85 99 10/09/20 05:03 94 10/09/20 04:20 36.5 C 107 H 20 118/82 100 Laboratory Results 10/09/20 10/09/20 10/09/20 Range/Units Unknown 04:50 04:50 WBC 12.37 H (4.8-10.8) K/uL RBC 4.14 L (4.2-5.4) M/uL Hgb 14.6 (12.0-16.0) g/dL Hct 42.0 (37-47) % MCV 101.4 H (80-100) fL MCH 35.3 H (25-34) pg MCHC 34.8 (32-36) g/dL RDW Std Deviation 44.8 (36.4-46.3) fL RDW Coeff of Agnes 12.1 (11.5-14.5) % Plt Count 277 (130-400) K/uL MPV 10.0 (7.4-10.4) fL Immature Gran % (Auto) 0.2 % Neut % (Auto) 89.8 % Lymph % (Auto) 6.0 % [place] % (Auto) 3.7 % Eos % (Auto) 0.2 % Baso % (Auto) 0.1 % Neut # (Auto) 11.11 H (1.4-6.5) K/uL Lymph # (Auto) 0.74 L (1.2-3.4) K/uL [place] # (Auto) 0.46 (0.11-0.59) K/uL Eos # (Auto) 0.02 (0-0.5) K/uL Baso # (Auto) 0.01 (0-0.2) K/uL Immature Gran # (Auto) 0.03 H (0.00-0.02) K/uL Sodium 136 (136-145) mmol/L Potassium 4.0 (3.5-5.1) mmol/L Chloride 101 (98-107) mmol/L Carbon Dioxide 30 (21-32) mmol/L Anion Gap 5.0 (3-11) BUN 20 H (7-18) mg/dl Creatinine 0.87 (0.6-1.2) mg/dl Est Cr Clr Drug Dosing 57.2 ml/min Est GFR ( Amer) 82.2 Est GFR (Non-Af Amer) 70.9 BUN/Creatinine Ratio 23.5 H (10-20) Glucose 156 H (70-99) mg/dl Calcium 9.9 (8.5-10.1) mg/dl Total Bilirubin 0.4 (0.2-1) mg/dl AST 21 (15-37) U/L ALT 26 (12-78) U/L Alkaline Phosphatase 114 (45-117) U/L Total Protein 7.5 (6.4-8.2) gm/dl Albumin 4.3 (3.4-5.0) gm/dl Globulin 3.2 (2.5-4.0) gm/dl Albumin/Globulin Ratio 1.3 (0.9-2) Lipase 99 (73-393) U/L SARS-CoV-2 Ag (Rapid) Negative (Negative) Diagnostic Findings CT abdomen/pelvis as noted above Code Status & VTE Plan Code Status Full code VTE Prophylaxis Plan VTE Prophylaxis will be ordered: Yes PG Care Time/CCT Total # of Minutes Spent Total Time Spent with Patient: Total time spent is greater than 50% in coordination of care (as documented) at patient's floor/unit and/or counseling patient: Coding Level of Care Code 94639 Initial Inpt Care Lvl 3 Diagnoses Partial small bowel obstruction K56.600 Smoking greater than 30 pack years F17.210 Ovarian cancer C56.9 SVT (supraventricular tachycardia) I47.1 Leukocytosis D72.829 DVT prophylaxis Z29.9
[2020-10-09] MEDS ORDERED: MoRPHine SULFATE 4 MG/ML 1 ML CARP\\VIAL IV STA (08:09)
--- NOTE | 2020-10-09 08:26 | CT Scan Report ---
CT OF THE ABDOMEN AND PELVIS WITH CONTRAST CLINICAL HISTORY: Right-sided abdominal pain. Known ovarian cancer with metastases. COMPARISON STUDY: CT of the abdomen and pelvis September 01, 2020. TECHNIQUE: Following IV administration of 95 mL of Optiray-320, axial images of the abdomen and pelvi s were obtained from the lung bases to the proximal femurs. Images were reviewed in the axial, sagitt al, and coronal planes. IV contrast was administered without complication. Automated exposure contro l was utilized for the study. A dose lowering technique was utilized adhering to the principles of A NIKOLE. CT DOSE: 326.03 mGy.cm FINDINGS: No pneumatosis, free air or portal venous gas is present. A small amount of ascites has inc reased since exam of September 01, 2020. Numerous capsular implants along the liver are noted. These rodriguez ve increased in size since exam September 01, 2020. Index lesion overlying the lateral segment now manasa ures 2.1 cm. It previously measured 1.8 cm. Numerous peritoneal/omental implants have also increased in size since prior examination. Retroperitoneal lymphadenopathy has increased. Index left para-aorti c lymph node on image 220 461 measures 2.6 x 1.8 cm. It previously measured 2.2 x 1.7 cm. The spleen, adrenal glands, kidneys and pancreas are unremarkable. There is no hydronephrosis. Mild dilatation o f the common bile duct is noted following cholecystectomy. There is no pancreatic ductal dilatation. Major vasculature is patent. The proximal to mid small bowel is fluid-filled and mildly dilated trans ition point with small bowel feces sign is noted within the central pelvis shown on axial image 337 o f 461. The colon and distal small bowel are decompressed. No suspicious osseous lesions are noted. IMPRESSION: 1. Findings consistent with a small bowel obstruction with transition point within the central pelvis . The obstruction could be due to adhesions or peritoneal tumor. 2. Progression of peritoneal carcinomatosis and retroperitoneal lymphadenopathy since CT of September 01, 2020. Increase in a small amount of ascites. 3. Mild biliary ductal dilatation status post cholecystectomy. This could be correlated with liver fu nction tests. ACT 112: Negative or not required by law. Electronically signed by: Rivera Jimenez M.D. 10/09/2020 8:24 AM
[2020-10-09] MEDS ORDERED: PROCHLORPERAZINE 10 MG in SYRINGE 8 ML IV ONE (08:30)
[2020-10-09] MEDS: NSS + 20MEQ KCL 20 MEQ/1,000 ML BAG IV SCH ×2 (08:35→16:59)
--- NOTE | 2020-10-09 10:28 | Surgery Consultation ---
Date of Consultation October 09, 2020 Assessment & Plan (1) Small bowel obstruction: This is a 65yF with a PMH of ovarian cancer with peritoneal carcinomatosis who presents to the [facility] ED on 10/09/20 with complaints of abdominal pain, nausea/vomiting. Workup in the ER with a CT a/p revealed findings consistent with a sbo with transition point within the central pelvis, likely could be due to adhesions or peritoneal tumor. CT also showed progression of peritoneal carcinomatosis and retroperitoneal lymphadenopathy since CT of 09/01/20. WBC 12. Patient's HR 90's-100s. On examination patient with NGT in place with bilious drainage. Abdomen is soft, mildly distended, with ttp in RUQ/mid abdomen with mass felt in abdominal wall. At this time we recommend giving patient a trial of conservative management. NPO, bowel rest, and NGT in place. We will consider a SBFT if she does not progress within next ~48 hours. Patient seen and examined with Dr. Barragan. Supervising Physician Co-Signing Physician Notes I personally saw and evaluated the patient with Zenaida Adair PA-C and agree with the assessment and plan. 65 yo female with SBO, history of metastatic ovarian CA, peritoneal carcinomatosis -CT images and results reviewed -Will plan on non-operative treatment of her bowel obstruction as she is an extremely poor surgical candidate -Keep NGT in place -Keep NPO -Will monitor her abdominal exam, but no plans for surgical intervention History of Present Illness Attending Physician: Antonietta Soto MD History of Present Illness This is a 65yF with a PMH of ovarian cancer with peritoneal carcinomatosis who presents to the [facility] ED on 10/09/20 with complaints of abdominal pain, nausea/vomiting. Patient reports her abdominal pain started last night around 7:30pm, subsequently associated with n/v. Her abdominal pain is mostly located in the RUQ and upper mid abdomen, characterizing it as "gouging pain". She presented to the ER today due to worsening symptoms. In the ER patient underwent a CT a/p that revealed findings consistent with a small bowel obstruction with transition point within the central pelvis. The obstruction could be due to adhesions or peritoneal tumor. It also revealed progression of peritoneal carcinomatosis and retroperitoneal lymphadenopathy since CT of 09/01/20. Patient reports subjective fevers/chills. She says she had a BM yesterday and a small one this AM, but is not passing flatus. Her surgical history includes a cholecystectomy, appendectomy, and hysterectomy with b/l salpingo-oophorectomy. Her Oncologist is from [facility] and she states she was suppose to start chemotherapy this week. This is her first bowel obstruction to her knowledge. Allergies Allergy/AdvReac Type Severity Reaction Status Date / Time cashew nut Allergy Severe ANAPHYLAXIS Verified 10/09/20 04:48 pecan nut Allergy Severe ANAPHYLAXIS Verified 10/09/20 04:48 walnut Allergy Severe ANAPHYLAXIS Verified 10/09/20 04:48 Beef Containing Products Allergy Intermediate itch hives Verified 10/09/20 04:48 milk Allergy Intermediate HIVES Verified 10/09/20 04:48 Poultry Allergy Intermediate itch hives Verified 10/09/20 04:48 corn Allergy Mild itch Verified 10/09/20 04:48 shellfish derived Allergy Mild TESTED Verified 10/09/20 04:48 POSTITIVE ON SCRATCH TEST tomato Allergy Mild TESTED Verified 10/09/20 04:48 POSITIVE ON SCRATCH TEST hazelnut Allergy Unknown unknown Verified 10/09/20 04:48 per testing Histamine H2 Inhibitors Allergy Unknown unknown Verified 10/09/20 04:48 per tesing nut - unspecified Allergy Unknown unknown Verified 10/09/20 04:48 per testing peas Allergy Unknown unknown Verified 10/09/20 04:48 per testing pistachio nut Allergy Unknown unknown Verified 10/09/20 04:48 per testing scallops Allergy Unknown unknown Verified 10/09/20 04:48 per testing shrimp Allergy Unknown unknown Verified 10/09/20 04:48 per testing Grain Allergy Unknown unknown Uncoded 10/09/20 04:48 per testing Home Medications Medication Instructions Recorded Confirmed Type ascorbic acid (vitamin C) [Vitamin 1 g PO QAM 04/15/19 10/09/20 History C] epinephrine [EpiPen] 0.3 mg IM Q3H PRN 04/15/19 10/09/20 History multivitamin 1 cap PO QAM 04/15/19 10/09/20 History cholecalciferol (vitamin D3) 25 1,000 units PO QAM cap 04/22/19 10/09/20 History mcg (1,000 unit) capsule diltiazem HCl 240 mg capsule,24 240 mg PO QAM #90 cap 03/10/20 10/09/20 Rx hr,extended release calcium carbonate 500 mg PO DAILY 10/09/20 10/09/20 History niraparib [Zejula] 200 mg PO DAILY 10/09/20 10/09/20 History prochlorperazine maleate 10 mg PO UD PRN 10/09/20 10/09/20 History Patient History Medical History Adult situational stress disorder Anxiety Chronic back pain Degenerative cervical disc GERD (gastroesophageal reflux disease) Hyperlipidemia Macular degeneration, dry Menopause Osteoarthritis Ovarian cancer 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 SVT (supraventricular tachycardia) Symptomatic cholelithiasis Surgical History H/O lumpectomy left breast--benign History of colonoscopy History of hysterectomy for cancer hyster, bso, staging 3 C ov ca History of laparoscopy OVARIAN CYST REMOVED History of ovarian cystectomy History of tooth extraction some upper and lower teeth History of vascular access device right chest wall--[place]port Hx laparoscopic cholecystectomy Hx laparoscopic cholecystectomy Dr. Rajesh Kraft on 05/03/19 Hx of foot surgery BILATERAL--hardware in place S/P dilation and curettage Family History Unknown Osteoporosis Father Hypertension Hyperlipidemia Hx of malignant mesothelioma Lung cancer Mother Hyperlipidemia Hypertension Mineral disease Breast cancer CKD (chronic kidney disease) Grandfather Renal failure Brother Congenital heart disease Gluten intolerance Grandmother (Maternal) Occlusion of intestine or colon Denies family history of Ovarian cancer Prostate cancer Colorectal cancer Social History Smoking Status: Former smoker Cigarettes Per Day: 15; Second Hand Exposure: Yes (parents smoked); Hx Alcohol Use: Yes Alcohol type: wine Hx Substance Use: No Preferred Language: German Communication Ability: Effective Director Talent Acquisition Required: No Beliefs That Will Affect Care: None marital status: Current Living Situation: Alone current occupational status: employed Feels Safe at Home: Yes Childhood Exposure to Second-Hand Smoke: Yes Dental Care, Regularly: Yes Physical Activity Frequency: Daily Seatbelt Use: always Sunscreen Use: No Assistive Devices: Denture - Upper, Denture - Lower and Glasses Review of Systems Constitutional: subjective fevers/chills Gastrointestinal: + abdominal pain (moslty RUQ and mid R abdominal pain), + nausea and + vomiting; no blood in stools no flatus. had small BM this AM Physical Exam Physical Exam: awake Constitutional: well developed and well nourished; no acute distress Respiratory: normal respiratory effort; no respiratory distress Cardiovascular: Rate/Rhythm: regular rate and + tachycardic Gastrointestinal (Abdomen): Inspection/Auscultation: + abdomen distended (mild) and + abdominal surgical scar (infraumbilcally, well healed) Percussion/Palpation: + abdomen tender (TTP right upper/mid abdomen; + mass felt in abdominal wall) and abdomen soft + NGT with bilious output Skin: no rashes, warm and dry Results & Data ([facility]) Vital Signs (Past 12 Hours) Vital Signs Temp Pulse Pulse Resp BP BP Pulse Ox 10/09/20 10:08 103 H 18 139/84 93 10/09/20 08:41 96 H 18 146/83 H 93 10/09/20 08:11 94 H 18 162/88 H 94 10/09/20 06:35 68 14 140/85 99 10/09/20 05:03 94 10/09/20 04:20 36.5 C 107 H 20 118/[address] OF THE ABDOMEN AND PELVIS WITH CONTRAST CLINICAL HISTORY: Right-sided abdominal pain. Known ovarian cancer with metastases. COMPARISON STUDY: CT of the abdomen and pelvis September 01, 2020. TECHNIQUE: Following IV administration of 95 mL of Optiray-320, axial images of the abdomen and pelvis were obtained from the lung bases to the proximal femurs. Images were reviewed in the axial, sagittal, and coronal planes. IV contrast was administered without complication. Automated exposure control was utilized for the study. A dose lowering technique was utilized adhering to the principles of ALARA. CT DOSE: 326.03 mGy.cm FINDINGS: No pneumatosis, free air or portal venous gas is present. A small amount of ascites has increased since exam of September 01, 2020. Numerous capsular implants along the liver are noted. These have increased in size since exam September 01, 2020. Index lesion overlying the lateral segment now measures 2.1 cm. It previously measured 1.8 cm. Numerous peritoneal/omental implants have also increased in size since prior examination. Retroperitoneal lymphadenopathy has increased. Index left para-aortic lymph node on image 220 461 measures 2.6 x 1.8 cm. It previously measured 2.2 x 1.7 cm. The spleen, adrenal glands, kidneys and pancreas are unremarkable. There is no hydronephrosis. Mild dilatation of the common bile duct is noted following cholecystectomy. There is no pancreatic ductal dilatation. Major vasculature is patent. The proximal to mid small bowel is fluid-filled and mildly dilated transition point with small bowel feces sign is noted within the central pelvis shown on axial image 337 of 461. The colon and distal small bowel are decompressed. No suspicious osseous lesions are noted. IMPRESSION: 1. Findings consistent with a small bowel obstruction with transition point within the central pelvis. The obstruction could be due to adhesions or peritoneal tumor. 2. Progression of peritoneal carcinomatosis and retroperitoneal lymphadenopathy since CT of September 01, 2020. Increase in a small amount of ascites. 3. Mild biliary ductal dilatation status post cholecystectomy. This could be correlated with liver function tests. ACT 112: Negative or not required by law. Electronically signed by: Rivera Jimenez M.D. 10/09/2020 8:24 AM PG Care Time/CCT Total # of Minutes Spent Total Time Spent with Patient: Total time spent is greater than 50% in coordination of care (as documented) at patient's floor/unit and/or counseling patient: Coding Level of Care Code 51251 Inpt Consult Level 3 Diagnoses Small bowel obstruction K56.609
[2020-10-09] MEDS ORDERED: EPINEPHrine ADULT AUTO-INJECT 0.3 MG SYR IM PRN (14:18)
[2020-10-09] MEDS ORDERED: MoRPHine SULFATE 4 MG/ML 1 ML CARP\\VIAL IV PRN (14:18)
[2020-10-09] MEDS ORDERED: ONDANSETRON INJ 2 MG/ML 2 ML VIAL IV PRN (14:18)
[2020-10-09] MEDS ORDERED: CHLORASEPTIC 1.4% SOLN 180 ML BTL MT PRN (17:10)
[2020-10-10] MEDS ORDERED: HEPARIN 100 UNIT/ML 5ML FLUSH FLUSH PRN (01:13)
[2020-10-10] MEDS: NSS + 20MEQ KCL 20 MEQ/1,000 ML BAG IV SCH ×3 (01:39→19:06)
[2020-10-10 07:08] LABS: Basophils # (auto) 0.01 K/uL (0-0.2); Basophils % (auto) 0.1 %; Eosinophils # (auto) 0.26 K/uL (0-0.5); Eosinophils % (auto) 3.2 %; Hematocrit (blood only) 38.6 % (37-47); Hemoglobin 12.9 g/dL (12.0-16.0); Immature Granulocytes # (auto) 0.01 K/uL (0.00-0.02); Immature Granulocytes % (auto) 0.1 %; Lymphocytes # (auto) 1.68 K/uL (1.2-3.4); Lymphocytes % (auto) 20.5 %; Mean Corpuscular Hemoglobin 34.8 pg (25-34); Mean Corpuscular Hgb Conc 33.4 g/dL (32-36); Mean Platelet Volume 9.5 fL (7.4-10.4); Monocytes % (auto) 8.6 %; Neutrophils # (auto) 5.52 K/uL (1.4-6.5); Neutrophils % (auto) 67.5 %; Platelet Count 255 K/uL (130-400); RDW Coefficient of Variation 12.3 % (11.5-14.5); RDW Standard Deviation 47.1 fL (36.4-46.3); Red Blood Count 3.71 M/uL (4.2-5.4); White Blood Count 8.18 K/uL (4.8-10.8)
[2020-10-10 07:48] LABS: Albumin Level 3.1 gm/dl (3.4-5.0); BUN Creatinine Ratio 22.9 (10-20); Calcium 8.5 mg/dl (8.5-10.1); Creatinine Clr Calc Pharmacy 64.6 ml/min; Est GFR (African American) 95.2; Est GFR (Non-African American) 82.2; Potassium 3.9 mmol/L (3.5-5.1)
[2020-10-10 07:52] LABS: Albumin Globulin Ratio 1.2 (0.9-2); Bilirubin,Total 0.5 mg/dl (0.2-1); Globulin 2.7 gm/dl (2.5-4.0); Phosphorus 2.7 mg/dl (2.5-4.9); Total Protein 5.8 gm/dl (6.4-8.2)
--- NOTE | 2020-10-10 09:17 | Surgery Progress Note ---
Date of Service October 10, 2020 Assessment & Plan (1) Small bowel obstruction: Patient with history of ovarian ca and peritoneal carcinomatosis here with SBO VSS, HR 80's-90's Patient reports improvement in her symptoms regarding nausea/abdominal pain On examination she still does have some ttp in RUQ/right mid abdomen where abdominal mass is felt She is not yet passing flatus/bm's For now would continue conservative measures with bowel rest, NPO with NGT and IVF Admission and Anticipated Discharge Date Admission Date: October 09, 2020 Supervising Physician Co-Signing Physician Notes I personally saw and evaluated the patient with Zenaida Adair PA-C and agree with the assessment and plan 65 yo female with metastatic ovarian CA, peritoneal carcinomatosis with SBO -Passed some flatus today, but nothing significant yet -Will keep NGT/NPO today, may have oral swabs -She overall seems to be improving slowly -If she has not made significant progress over next 24 hours, will plan on SBFT which can be therapeutic Subjective Patient states she is feeling some improvement in her symptoms. Currently denies nausea or abdominal pain. Not yet passing flatus or BM's. Physical Exam Physical Exam: awake/alert Constitutional: well developed; no acute distress Respiratory: normal respiratory effort Gastrointestinal (Abdomen): Inspection/Auscultation: abdomen not distended Percussion/Palpation: + abdomen tender (mild ttp in RUQ/mid abdomen) and abdomen soft + NGT with brown output (950cc) documented over last 12 hours Results & Data ([facility]) Vital Signs (Past 12 Hours) Vital Signs Temp Pulse Pulse Pulse Resp BP Pulse Ox 10/10/20 03:36 37.2 C 89 15 137/72 91 10/10/20 01:28 90 10/09/20 23:55 37.1 C 91 H 17 144/80 H 92 PG Care Time/CCT Total # of Minutes Spent Total Time Spent with Patient: Total time spent is greater than 50% in coordination of care (as documented) at patient's floor/unit and/or counseling patient: Coding Level of Care Code 08108 Subseq Hosp Care Lvl 1 Diagnoses Small bowel obstruction K56.609
[2020-10-10] MEDS: PANTOprazole 40 MG in SYRINGE 0 ML IV SCH ×2 (13:57→22:54)
--- NOTE | 2020-10-10 16:40 | Hospitalist Progress Note ---
Date of Service October 10, 2020 Assessment & Plan (1) Partial small bowel obstruction: Here with partial small bowel obstruction most likely secondary to adhesive disease in the setting of metastatic ovarian cancer and history of DENISSE- BSO, appendectomy, cholecystectomy in the past NGT placed on admission Improving today, passing flatus, no further nausea, and abd pain is improved lytes normal Continue NG tube to LIS but can clamp to take walks -advance to ice chips Surgery may plan for SBFT tomorrow Continue IV fluids for hydration replace electrolytes as needed Follow CBC and CMP in the morning Leukocytosis most likely secondary to obstruction-now resolved No need for antibiotics Consult general surgery in case of need for surgical intervention is appreciated Continue IV morphine as needed for pain Continue IV Zofran as needed for nausea -Holding all home p.o. meds (2) Smoking greater than 30 pack years: Encourage continued cessation (3) Ovarian cancer: Metastatic ovarian cancer, currently on oral chemotherapy pill-we will have this on hold With recent possible recurrence in the liver, has enlarging LNs and omental carcinomatosis on CT-reviewed this with her (4) SVT (supraventricular tachycardia): No tachycardia here on tele We will give IV diltiazem as needed if has SVT (5) Leukocytosis: As above, most likely secondary to partial small bowel obstruction now resolved No need for antibiotics at this point (6) DVT prophylaxis: SCDs only in case of need for surgical intervention Otherwise, would add on Lovenox if it appears she will not need any surgical intervention Disposition-continued stay on medical floor with telemetry Full code Admission and Anticipated Discharge Date Admission Date: October 09, 2020 Subjective Pt feeling much better today. Has been passing flatus and abd pain is resolved unless palpated now. No nausea. had some bloody drainage in tube and was started on PPI IV. Tele with NSR, rates 80-90s Review of Systems Review of Systems: All systems reviewed & are unremarkable except as noted in HPI & below no CP/SOB Physical Exam Constitutional: WD/WN, vitals as above Eyes: + anicteric sclerae ENMT: Ears: no hearing impairment and no external ear abnormality Neck: trachea midline, no thyromegaly Respiratory: normal respiratory effort; no respiratory distress Auscultation: + crackles (At left base which clear with deep breathing); no rhonchi and no wheezes Cardiovascular: RRR, no murmur, no edema Chest (Breasts): Chest: normal inspection of chest Gastrointestinal (Abdomen): Inspection/Auscultation: + hypoactive bowel sounds (but increased from previous); + abdomen abnormal to inspection (Incisional scars from previous surgeries noted) and abdomen not distended Percussion/Palpation: + abdomen tender (only minimal Right mid abdomen) and abdomen soft; no guarding Musculoskeletal: Extremities: extremities normal to inspection; no cyanosis and no clubbing Skin: no rashes, warm and dry Neurologic: moves all extremities and awake; no focal motor deficits Psychiatric: A+Ox3, euthymic affect Lymphatic: no lymphedema Results & Data Results & Data ([facility]) Vital Signs (Past 12 Hours) Vital Signs Temp Pulse Resp BP Pulse Ox 10/10/20 15:18 36.9 C 93 H 18 145/80 H 90 10/10/20 11:58 36.8 C 92 H 18 156/76 H 94 Laboratory Results 10/10/20 10/10/20 Range/Units 06:40 06:40 WBC 8.18 (4.8-10.8) K/uL RBC 3.71 L (4.2-5.4) M/uL Hgb 12.9 (12.0-16.0) g/dL Hct 38.6 (37-47) % MCV 104.0 H (80-100) fL MCH 34.8 H (25-34) pg MCHC 33.4 (32-36) g/dL RDW Std Deviation 47.1 H (36.4-46.3) fL RDW Coeff of Agnes 12.3 (11.5-14.5) % Plt Count 255 (130-400) K/uL MPV 9.5 (7.4-10.4) fL Immature Gran % (Auto) 0.1 % Neut % (Auto) 67.5 % Lymph % (Auto) 20.5 % Cross % (Auto) 8.6 % Eos % (Auto) 3.2 % Baso % (Auto) 0.1 % Neut # (Auto) 5.52 (1.4-6.5) K/uL Lymph # (Auto) 1.68 (1.2-3.4) K/uL Cross # (Auto) 0.70 H (0.11-0.59) K/uL Eos # (Auto) 0.26 (0-0.5) K/uL Baso # (Auto) 0.01 (0-0.2) K/uL Immature Gran # (Auto) 0.01 (0.00-0.02) K/uL Sodium 143 D (136-145) mmol/L Potassium 3.9 (3.5-5.1) mmol/L Chloride 110 H (98-107) mmol/L Carbon Dioxide 29 (21-32) mmol/L Anion Gap 4.0 (3-11) BUN 18 (7-18) mg/dl Creatinine 0.77 (0.6-1.2) mg/dl Est Cr Clr Drug Dosing 64.6 ml/min Est GFR ( Amer) 95.2 Est GFR (Non-Af Amer) 82.2 BUN/Creatinine Ratio 22.9 H (10-20) Glucose 86 (70-99) mg/dl Calcium 8.5 (8.5-10.1) mg/dl Phosphorus 2.7 (2.5-4.9) mg/dl Magnesium 2.0 (1.8-2.4) mg/dl Total Bilirubin 0.5 (0.2-1) mg/dl AST 17 (15-37) U/L ALT 17 (12-78) U/L Alkaline Phosphatase 83 (45-117) U/L Total Protein 5.8 L D (6.4-8.2) gm/dl Albumin 3.1 L (3.4-5.0) gm/dl Globulin 2.7 (2.5-4.0) gm/dl Albumin/Globulin Ratio 1.2 (0.9-2) PG Care Time/CCT Total # of Minutes Spent Total Time Spent with Patient: Total time spent is greater than 50% in coordination of care (as documented) at patient's floor/unit and/or counseling patient: Coding Level of Care Code 02385 Subseq Hosp Care Lvl 2 Diagnoses Partial small bowel obstruction K56.600 Smoking greater than 30 pack years F17.210 Ovarian cancer C56.9 SVT (supraventricular tachycardia) I47.1 Leukocytosis D72.829 DVT prophylaxis Z29.9
--- NOTE | 2020-10-10 22:31 | Communication Note ---
Date of Service: October 10, 2020 Patient requesting something else besides morphine for pain control. She nonspecifically endorses doesn't like the way it makes her feel. Will switch to equivalent dose of Dilaudid. Instructed nursing to give Zofran with next dose. Resident Activity Tracking Resident Involvement: Resident Care Provided Care Provided: Adult Hospital Medicine
[2020-10-10] MEDS: HYDROmorphone INJ 1 MG/ML SYRINGE IV PRN (22:54)
[2020-10-11] MEDS: NSS + 20MEQ KCL 20 MEQ/1,000 ML BAG IV SCH (03:11)
[2020-10-11 06:29] LABS: Basophils # (auto) 0.03 K/uL (0-0.2); Basophils % (auto) 0.3 %; Eosinophils # (auto) 0.26 K/uL (0-0.5); Eosinophils % (auto) 2.7 %; Hematocrit (blood only) 37.7 % (37-47); Hemoglobin 12.2 g/dL (12.0-16.0); Immature Granulocytes # (auto) 0.01 K/uL (0.00-0.02); Immature Granulocytes % (auto) 0.1 %; Lymphocytes % (auto) 15.8 %; Mean Corpuscular Hemoglobin 34.2 pg (25-34); Mean Corpuscular Hgb Conc 32.4 g/dL (32-36); Mean Corpuscular Volume 105.6 fL (80-100); Mean Platelet Volume 9.5 fL (7.4-10.4); Monocytes # (auto) 0.65 K/uL (0.11-0.59); Monocytes % (auto) 6.8 %; Neutrophils # (auto) 7.07 K/uL (1.4-6.5); Neutrophils % (auto) 74.3 %; Platelet Count 245 K/uL (130-400); RDW Standard Deviation 46.6 fL (36.4-46.3); Red Blood Count 3.57 M/uL (4.2-5.4); White Blood Count 9.52 K/uL (4.8-10.8)
[2020-10-11 07:03] LABS: Albumin Level 3.1 gm/dl (3.4-5.0); BUN Creatinine Ratio 27.5 (10-20); Calcium 8.5 mg/dl (8.5-10.1); Creatinine Clr Calc Pharmacy 73.1 ml/min; Est GFR (African American) 107.9; Est GFR (Non-African American) 93.1; Potassium 4.1 mmol/L (3.5-5.1)
[2020-10-11 07:06] LABS: Albumin Globulin Ratio 1.1 (0.9-2); Bilirubin,Total 0.6 mg/dl (0.2-1); Globulin 2.9 gm/dl (2.5-4.0)
[2020-10-11] MEDS: PANTOprazole 40 MG in SYRINGE 0 ML IV SCH ×2 (07:43→19:50)
--- NOTE | 2020-10-11 09:31 | Surgery Progress Note ---
Date of Service October 11, 2020 Assessment & Plan (1) Small bowel obstruction: Patient with history of ovarian ca and peritoneal carcinomatosis here with SBO WBC 9.5; patient with stable vitals Patient states she is not feeling much improvement in symptoms, currently denies n/v. No BM/flatus She is anxious to start feeling better Abdominal exam similar to yesterday We will order SBFT today for further evaluation via NGT Admission and Anticipated Discharge Date Admission Date: October 09, 2020 Supervising Physician Co-Signing Physician Notes I personally saw and evaluated the patient with Zenaida Adair PA-C and agree with the assessment and plan 65 yo female with metastatic ovarian CA, peritoneal carcinomatosis with SBO -No significant return of bowel function -Will keep NGT/NPO today, may have oral swabs -Will plan on SBFT today in hopes this is therapeutic -No plans for operative intervention at this point Subjective Patient is upset she is not making any improvement. Saying she wants to go home. She otherwise denies any nausea/vomiting or increase of abdominal pain. Not passing much flatus and has not had a BM. Physical Exam Physical Exam: awake/alert Respiratory: normal respiratory effort Gastrointestinal (Abdomen): Percussion/Palpation: + abdomen tender (same ttp to RUQ/mid abd.) and abdomen soft NGT with brown/bilious output (950cc documented over last 12 hours) Results & Data ([place]) Vital Signs (Past 12 Hours) Vital Signs Temp Pulse Pulse Resp BP Pulse Ox 10/11/20 07:43 36.4 C L 92 H 20 135/77 94 10/11/20 04:00 36.9 C 94 H 18 147/76 H 93 10/10/20 23:49 96 H 10/10/20 22:47 37.0 C 97 H 20 164/78 H 93 PG Care Time/CCT Total # of Minutes Spent Total Time Spent with Patient: Total time spent is greater than 50% in coordination of care (as documented) at patient's floor/unit and/or counseling patient: Coding Level of Care Code 94335 Subseq Hosp Care Lvl 1 Diagnoses Small bowel obstruction K56.609
[2020-10-11] MEDS: D5W AND 1/2NSS + 20MEQ KCL 20 MEQ/1,000 ML BAG IV SCH ×2 (09:32→19:50)
[2020-10-11] MEDS ORDERED: PANTOprazole 40 MG in SYRINGE 0 ML IV SCH (11:00)
--- NOTE | 2020-10-11 12:28 | Fluoroscopy Report ---
[place] small bowel follow through CLINICAL HISTORY: Small bowel obstruction. Ovarian cancer. COMPARISON STUDY: CT of the abdomen and pelvis October 09, 2020. FLUOROSCOPY TIME: 0.6 minutes. FLUOROSCOPIC IMAGES: 7. PROCEDURE AND FINDINGS: Fuse Maker image demonstrates tip of nasogastric tube within the distal body of th e stomach. Multiple mildly dilated loops of small bowel are noted. Small bowel dilatation has slightl y improved since prior CT. There is increasing gas within the colon and rectum. A small bowel follow- through was then performed following injection of 300 cc of Optiray 300 via the nasogastric tube. The proximal to mid small bowel is mildly dilated. No well-defined transition point was identified and c ontrast reached the cecum in 1 hour and 20 minutes which is within normal limits. No small bowel mass or other mucosal abnormality is identified although sensitivity is diminished given this technique w ith water-soluble contrast. Terminal ileum was partially obscured but likely normal. IMPRESSION: No evidence for a high-grade small bowel obstruction. Contrast reached the cecum in 1 ho ur and 20 minutes which is within normal limits. Mild dilatation of the proximal to mid small bowel w ithout well-defined transition point identified. At most, the findings suggest a low-grade partial sm all bowel obstruction, improved since CT of October 09, 2020. ACT 112: Negative or not required by law. Electronically signed by: Rivera Jimenez M.D. 10/11/2020 12:27 PM
--- NOTE | 2020-10-11 13:35 | Hospitalist Progress Note ---
Date of Service October 11, 2020 Assessment & Plan (1) Partial small bowel obstruction: Here with partial small bowel obstruction most likely secondary to adhesive disease in the setting of metastatic ovarian cancer and history of DENISSE- BSO, appendectomy, cholecystectomy in the past NGT placed on admission Improving today, was passing flatus but none so far today however no N/V, and abd pain much improved lytes normal Discussed care with Surgery -dc NGT -slowly advance diet-only sips of water today and ice chips, can take po meds Continue IV fluids for hydration replace electrolytes as needed-add on D5W today for borderline low glucose Follow CBC and CMP in the morning Leukocytosis most likely secondary to obstruction-now resolved No need for antibiotics Consult general surgery in case of need for surgical intervention is appreciated Continue IV dilaudid as needed for pain Continue IV Zofran as needed for nausea (2) Smoking greater than 30 pack years: Encourage continued cessation (3) Ovarian cancer: Metastatic ovarian cancer, currently on oral chemotherapy pill-we will have this on hold With recent possible recurrence in the liver, has enlarging LNs and omental carcinomatosis on CT-reviewed this with her (4) SVT (supraventricular tachycardia): No SVT but just sinus tach here on tele restart home po diltiazem today -ok to transfer off tele-she can tell when she has SVT and will let RN know if occurs (5) Leukocytosis: As above, most likely secondary to partial small bowel obstruction now resolved No need for antibiotics at this point (6) DVT prophylaxis: SCDs only in case of need for surgical intervention Will add on Lovenox as it appears she will not need any surgical intervention Disposition-continued stay on medical floor , downgrade from tele Full code Admission and Anticipated Discharge Date Admission Date: October 09, 2020 Subjective Pt hasn't passed flatus today but feels like she might soon, no BM. No nausea. Is anxious to get her NGT out today. No CP or SOB, no heart palpitations. Tele with NSR, ST 90-100s Review of Systems Review of Systems: All systems reviewed & are unremarkable except as noted in HPI & below Physical Exam Constitutional: WD/WN, vitals as above Eyes: + anicteric sclerae ENMT: Ears: no hearing impairment and no external ear abnormality Neck: trachea midline, no thyromegaly Respiratory: normal respiratory effort; no respiratory distress A uscultation: + crackles (At left base which clear with deep breathing); no rhonchi and no wheezes Cardiovascular: RRR, no murmur, no edema Chest (Breasts): Chest: normal inspection of chest Gastrointestinal (Abdomen): Inspection/Auscultation: + hypoactive bowel sounds (but increased from previous); + abdomen abnormal to inspection (Incisional scars from previous surgeries noted) and abdomen not distended Per cussion/Palpation: abdomen soft; abdomen nontender and no guarding Musculoskeletal: Extremities: extremities normal to inspection; no cyanosis and no clubbing Skin: no rashes, warm and dry Neurologic: moves all extremities and awake; no focal motor deficits Psychiatric: A+Ox3, euthymic affect Lymphatic: no lymphedema Results & Data Results & Data ([facility]) Vital Signs (Past 12 Hours) Vital Signs Temp Pulse Resp BP Pulse Ox 10/11/20 07:43 36.4 C L 92 H 20 135/77 94 10/11/20 04:00 36.9 C 94 H 18 147/76 H 93 Laboratory Results 10/11/20 10/11/20 Range/Units 06:13 06:13 WBC 9.52 (4.8-10.8) K/uL RBC 3.57 L (4.2-5.4) M/uL Hgb 12.2 (12.0-16.0) g/dL Hct 37.7 (37-47) % MCV 105.6 H (80-100) fL MCH 34.2 H (25-34) pg MCHC 32.4 (32-36) g/dL RDW Std Deviation 46.6 H (36.4-46.3) fL RDW Coeff of Agnes 12.0 (11.5-14.5) % Plt Count 245 (130-400) K/uL MPV 9.5 (7.4-10.4) fL Immature Gran % (Auto) 0.1 % Neut % (Auto) 74.3 % Lymph % (Auto) 15.8 % Hayes % (Auto) 6.8 % Eos % (Auto) 2.7 % Baso % (Auto) 0.3 % Neut # (Auto) 7.07 H (1.4-6.5) K/uL Lymph # (Auto) 1.50 (1.2-3.4) K/uL Hayes # (Auto) 0.65 H (0.11-0.59) K/uL Eos # (Auto) 0.26 (0-0.5) K/uL Baso # (Auto) 0.03 (0-0.2) K/uL Immature Gran # (Auto) 0.01 (0.00-0.02) K/uL Sodium 142 (136-145) mmol/L Potassium 4.1 (3.5-5.1) mmol/L Chloride 110 H (98-107) mmol/L Carbon Dioxide 27 (21-32) mmol/L Anion Gap 5.0 (3-11) BUN 19 H (7-18) mg/dl Creatinine 0.68 (0.6-1.2) mg/dl Est Cr Clr Drug Dosing 73.1 ml/min Est GFR ( Amer) 107.9 Est GFR (Non-Af Amer) 93.1 BUN/Creatinine Ratio 27.5 H (10-20) Glucose 69 L (70-99) mg/dl Calcium 8.5 (8.5-10.1) mg/dl Phosphorus 3.0 (2.5-4.9) mg/dl Magnesium 2.0 (1.8-2.4) mg/dl Total Bilirubin 0.6 (0.2-1) mg/dl AST 20 (15-37) U/L ALT 16 (12-78) U/L Alkaline Phosphatase 82 (45-117) U/L Total Protein 6.0 L (6.4-8.2) gm/dl Albumin 3.1 L (3.4-5.0) gm/dl Globulin 2.9 (2.5-4.0) gm/dl Albumin/Globulin Ratio 1.1 (0.9-2) Diagnostic Findings SBFT shows improvement in SBO--> now low grade PSBO, no transition point PG Care Time/CCT Total # of Minutes Spent Total Time Spent with Patient: Total time spent is greater than 50% in coordination of care (as documented) at patient's floor/unit and/or counseling patient: Coding Level of Care Code 09835 Subseq Hosp Care Lvl 3 Diagnoses Partial small bowel obstruction K56.600 Smoking greater than 30 pack years F17.210 Ovarian cancer C56.9 SVT (supraventricular tachycardia) I47.1 Leukocytosis D72.829 DVT prophylaxis Z29.9
[2020-10-11] MEDS: ENOXAPARIN INJ 40 MG/0.4 ML SYR SQ SCH (15:01)
[2020-10-11] MEDS: dilTIAZem HCL 120 MG CAPCR PO SCH (15:01)
[2020-10-11] MEDS: HYDROmorphone INJ 1 MG/ML SYRINGE IV PRN (21:06)
[2020-10-12] MEDS: D5W AND 1/2NSS + 20MEQ KCL 20 MEQ/1,000 ML BAG IV SCH ×2 (05:50→12:37)
--- NOTE | 2020-10-12 06:11 | Surgery Progress Note ---
Date of Service October 12, 2020 Assessment & Plan (1) Small bowel obstruction: -She seems to be resolving her obstruction -Clears this AM, if tolerates would advance for lunch -If tolerates both meals without pain or nausea, ok for d/c later today from surgical standpoint Admission and Anticipated Discharge Date Admission Date: October 09, 2020 Subjective Pt seen and examined. Pain has subsided. +3-4 BM's yesterday. No N/V. Afebrile. Review of Systems Constitutional: No fevers/chills Gastrointestinal: + abdominal pain (moslty RUQ and mid R abdominal pain), + nausea and + vomiting; no blood in stools +BM's Physical Exam Physical Exam: awake/alert Constitutional: well developed and well nourished; no acute distress Respiratory: normal respiratory effort; no respiratory distress Cardiovascular: Rate/Rhythm: regular rate and + tachycardic Gastrointestinal (Abdomen): Inspection/Auscultation: + abdominal surgical scar (infraumbilcally, well healed); abdomen not distended Percussion/Palpation: abdomen soft; abdomen nontender Skin: no rashes, warm and dry Results & Data ([facility]) Vital Signs (Past 12 Hours) Vital Signs Temp Pulse Resp BP Pulse Ox 10/11/20 22:23 37.0 C 81 20 119/71 94 FL small bowel follow through CLINICAL HISTORY: Small bowel obstruction. Ovarian cancer. COMPARISON STUDY: CT of the abdomen and pelvis October 09, 2020. FLUOROSCOPY TIME: 0.6 minutes. FLUOROSCOPIC IMAGES: 7. PROCEDURE AND FINDINGS: Warp Changer image demonstrates tip of nasogastric tube within the distal body of the stomach. Multiple mildly dilated loops of small bowel are noted. Small bowel dilatation has slightly improved since prior CT. There is increasing gas within the colon and rectum. A small bowel follow-through was then performed following injection of 300 cc of Optiray 300 via the nasogastric tube. The proximal to mid small bowel is mildly dilated. No well-defined transition point was identified and contrast reached the cecum in 1 hour and 20 minutes which is within normal limits. No small bowel mass or other mucosal abnormality is identified although sensitivity is diminished given this technique with water-soluble contrast. Terminal ileum was partially obscured but likely normal. IMPRESSION: No evidence for a high-grade small bowel obstruction. Contrast reached the cecum in 1 hour and 20 minutes which is within normal limits. Mild dilatation of the proximal to mid small bowel without well-defined transition point identified. At most, the findings suggest a low-grade partial small bowel obstruction, improved since CT of October 09, 2020. PG Care Time/CCT Total # of Minutes Spent Total Time Spent with Patient: Total time spent is greater than 50% in coordination of care (as documented) at patient's floor/unit and/or counseling patient: Coding Level of Care Code 51129 Subseq Hosp Care Lvl 1 Diagnoses Small bowel obstruction K56.609
[2020-10-12] MEDS: dilTIAZem HCL 120 MG CAPCR PO SCH (07:38)
[2020-10-12] MEDS: PANTOprazole 40 MG in SYRINGE 0 ML IV SCH (07:39)
[2020-10-12 09:52] LABS: Basophils # (auto) 0.02 K/uL (0-0.2); Basophils % (auto) 0.2 %; Eosinophils # (auto) 0.35 K/uL (0-0.5); Eosinophils % (auto) 4.3 %; Hematocrit (blood only) 36.9 % (37-47); Hemoglobin 12.6 g/dL (12.0-16.0); Immature Granulocytes # (auto) 0.01 K/uL (0.00-0.02); Immature Granulocytes % (auto) 0.1 %; Lymphocytes # (auto) 1.69 K/uL (1.2-3.4); Lymphocytes % (auto) 20.7 %; Mean Corpuscular Hemoglobin 34.8 pg (25-34); Mean Corpuscular Hgb Conc 34.1 g/dL (32-36); Mean Corpuscular Volume 101.9 fL (80-100); Mean Platelet Volume 9.6 fL (7.4-10.4); Monocytes # (auto) 0.68 K/uL (0.11-0.59); Monocytes % (auto) 8.3 %; Neutrophils % (auto) 66.4 %; Platelet Count 268 K/uL (130-400); RDW Standard Deviation 44.5 fL (36.4-46.3); Red Blood Count 3.62 M/uL (4.2-5.4); White Blood Count 8.15 K/uL (4.8-10.8)
[2020-10-12 10:28] LABS: BUN Creatinine Ratio 9.8 (10-20); Calcium 8.9 mg/dl (8.5-10.1); Creatinine Clr Calc Pharmacy 66.3 ml/min; Est GFR (African American) 98.3; Est GFR (Non-African American) 84.8; Magnesium 1.8 mg/dl (1.8-2.4); Potassium 3.7 mmol/L (3.5-5.1)
[2020-10-12] MEDS: ENOXAPARIN INJ 40 MG/0.4 ML SYR SQ SCH (12:37)
--- NOTE | 2020-10-12 14:48 | Discharge Summary ---
Date of Service October 12, 2020 Admission HPI Per Admitting Provider This patient is a 65-year-old female with history of metastatic ovarian cancer status post debulking of tumor and DENISSE-BSO and chemotherapy, SVT, hyperglycemia, colon polyps, pulmonary nodules, and current smoker who presents to the ER with abdominal pain that started last evening primarily in the right side of the abdomen. She also had multiple episodes of vomiting. Pain is rated as an 8 out of 10 in severity and is sharp in nature. Nothing seems to make it better or worse. She has a history of ovarian cancer with recurrence possibly in the liver as above and is status post surgical resection. She is also had a prior cholecystectomy and appendectomy. In the ER she was found to have an elevated WBC count of 12 with neutrophilic predominance, CMP was normal, lipase negative, Covid test was negative. A CT of the abdomen pelvis with contrast showed dilated small bowel loops in the abdomen pelvis with transition point in the pelvis preceded by small bowel feces sign. This was suggestive of a partial distal small bowel obstruction. She also had moderate ascites. An NG tube was ordered by the ER provider and she was given IV morphine and IV Zofran as well as IV fluids. Principal Diagnosis Small bowel obstruction, metastatic ovarian cancer Discharge Exam Constitutional WD/WN, vitals as above Eyes + anicteric sclerae ENMT Ears: no hearing impairment and no external ear abnormality Neck trachea midline, no thyromegaly Respiratory normal respiratory effort; no respiratory distress Auscultation: + crackles (At left base which clear with deep breathing); no rhonchi and no wheezes Cardiovascular RRR, no murmur, no edema Chest (Breasts) Chest: normal inspection of chest Gastrointestinal (Abdomen) Inspection/Auscultation: normal bowel sounds; + abdomen abnormal to inspection (Incisional scars from previous surgeries noted) and abdomen not distended Percussion/Palpation: abdomen soft; abdomen nontender and no guarding Musculoskeletal Extremities: extremities normal to inspection; no cyanosis and no clubbing Skin no rashes, warm and dry Neurologic moves all extremities and awake; no focal motor deficits Psychiatric A+Ox3, euthymic affect Lymphatic no lymphedema Discharge Data Allergies Allergy/AdvReac Type Severity Reaction Status Date / Time cashew nut Allergy Severe ANAPHYLAXIS Verified 10/09/20 04:48 pecan nut Allergy Severe ANAPHYLAXIS Verified 10/09/20 04:48 walnut Allergy Severe ANAPHYLAXIS Verified 10/09/20 04:48 Beef Containing Products Allergy Intermediate itch hives Verified 10/09/20 04:48 milk Allergy Intermediate HIVES Verified 10/09/20 04:48 corn Allergy Mild itch Verified 10/09/20 04:48 shellfish derived Allergy Mild TESTED Verified 10/09/20 04:48 POSTITIVE ON SCRATCH TEST tomato Allergy Mild TESTED Verified 10/09/20 04:48 POSITIVE ON SCRATCH TEST hazelnut Allergy Unknown unknown Verified 10/09/20 04:48 per testing Histamine H2 Inhibitors Allergy Unknown unknown Verified 10/09/20 04:48 per tesing nut - unspecified Allergy Unknown unknown Verified 10/09/20 04:48 per testing peas Allergy Unknown unknown Verified 10/09/20 04:48 per testing pistachio nut Allergy Unknown unknown Verified 10/09/20 04:48 per testing scallops Allergy Unknown unknown Verified 10/09/20 04:48 per testing shrimp Allergy Unknown unknown Verified 10/09/20 04:48 per testing chicken derived Allergy Verified 10/12/20 11:39 wheat Allergy Verified 10/12/20 10:22 Grain Allergy Unknown unknown Uncoded 10/09/20 04:48 per testing Consultations 10/09/20 07:19 ED Decision to Admit Stat 10/09/20 08:20 Consult General Surgery Routine Ordered Studies 10/09/20 04:41 CT abd pelvis IV con only Urgent 10/11/20 09:26 FL small bowel follow through Urgent Hospital Course (1) Partial small bowel obstruction: Here with partial small bowel obstruction most likely secondary to adhesive disease in the setting of metastatic ovarian cancer and history of DENISSE- BSO, appendectomy, cholecystectomy in the past NGT placed on admission to low intermittent suction She was provided IV fluids and electrolyte replacement as needed She was able to have NG tube removed after passing flatus and bowel movements Diet was slowly advanced to low fiber and she was doing well at the time of discharge Appreciate general surgery consultation-there was no need for surgical intervention Advised continued low fiber diet as an outpatient (2) Smoking greater than 30 pack years: Encourage continued cessation (3) Ovarian cancer: Metastatic ovarian cancer, currently on oral chemotherapy pill-we will have this on hold but she can restart upon discharge With recent possible recurrence in the liver, has enlarging LNs and omental carcinomatosis on CT-reviewed this with her She is to follow-up to restart chemotherapy this coming Friday at the cancer center (4) SVT (supraventricular tachycardia): No SVT but just sinus tach here on tele which then resolved after restarting home p.o. diltiazem (5) Leukocytosis: As above, most likely secondary to partial small bowel obstruction now resolved (6) DVT prophylaxis: SCDs, Lovenox Disposition-stable for discharge to home Full code Total Time Total Time Spent Total Time Spent (In Minutes): 35 minutes Total Time Includes: Examination of the Patient, Discharge Planning, Medication Reconciliation and Communication With Other Providers (General surgeon) Discharge Plan Discharge Items Patient Disposition: Home - Self-Care Reason For Visit: PARTIAL SBO Discharge Diagnosis: Small bowel obstruction Condition on Discharge: Good Activity: Resume your previous activity Non-emergency contact: Primary Care Provider and Oncologist Call non-emergency contact if: your symptoms worsen, your pain is not controlled, your pain is worsening, your pain is unusual for you and your pain is concerning for you Follow-up/Referrals: Jonah Shannon MD [Primary Care Provider] - (Please call for an appointment within 1-2 weeks.) Diet: Low Fiber Addtl Attending Provider Instructions: You were admitted with a bowel obstruction which is likely caused by adhesions or scar tissue from previous surgeries. This resolved after decompression with an NG tube. Please remain on a low fiber diet upon discharge. If you develop worsening abdominal pain, nausea/vomiting again, please return to the hospital. Follow aup as scheduled for chemotherapy next week. Follow up with your PCP within 1-2 weeks. Pending Studies at Discharge: No Stand-Alone Forms: My [facility], Smoking Cessation Medications and DC Order Prescriptions: Continued diltiazem HCl 240 mg capsule,extended release 24 hr 240 mg PO QAM Qty: 90 RF: 3 cholecalciferol (vitamin D3) 1,000 unit capsule 1,000 units PO QAM RF: 0 ascorbic acid (vitamin C) [Vitamin C] 1,000 mg Tablet 1 g PO QAM RF: 0 epinephrine [EpiPen] 0.3 mg/0.3 mL Auto-Injector 0.3 mg IM Q3H PRN (Reason: ALLERGIES) RF: 0 multivitamin Capsule 1 cap PO QAM RF: 0 prochlorperazine maleate 10 mg tablet 10 mg PO UD PRN (Reason: Nausea) RF: 0 Zejula 100 mg capsule 200 mg PO DAILY RF: 0 calcium carbonate 500 mg calcium (1,250 mg) Tablet 500 mg PO DAILY RF: 0 Discharge Orders: Discharge Order (Routine); Ordered 10/12/20 Ordered By: Antonietta Soto Admission Data Admit Date/Time: 10/09/20 08:20 Attending Provider: Antonietta Soto Admit Provider: Antonietta Soto Primary Care Provider: Jonah Shannon Other Providers: Antonietta Soto ; Cristiano Barragan Other Interventions: Discharge Summary Assessment (RN) Last Done: 10/12/20 15:09 Coding Level of Care Code D/C Day Management >30 mins Diagnoses Partial small bowel obstruction K56.600 Smoking greater than 30 pack years F17.210 Ovarian cancer C56.9 SVT (supraventricular tachycardia) I47.1 Leukocytosis D72.829 DVT prophylaxis Z29.9
[2020-10-12] MEDS ORDERED: PANTOprazole 40 MG TAB PO SCH (21:00)
== END 2020-10-12 18:06 | disposition home or self-care (01) | DRG 389 ==
LOC: ED 04:15 → EDINP 08:20 → 2W 15:53

== ENCOUNTER 2020-11-24 11:59 | Inpatient (IN) ==
[2020-11-24] MEDS ORDERED: SODIUM CHLORIDE 0.9% 1000ML 1,000 ML IV ONE (12:41)
[2020-11-24] MEDS ORDERED: ONDANSETRON INJ 2 MG/ML 2 ML VIAL IV STA (12:41)
[2020-11-24] MEDS ORDERED: MoRPHine SULFATE 4 MG/ML 1 ML CARP\\VIAL IV STA ×2 (12:41→15:33)
[2020-11-24 13:18] LABS: Eosinophils # (auto) 0.05 K/uL (0-0.5); Eosinophils % (auto) 0.7 %; Hematocrit (blood only) 37.4 % (37-47); Hemoglobin 12.6 g/dL (12.0-16.0); Immature Granulocytes # (auto) 0.01 K/uL (0.00-0.02); Immature Granulocytes % (auto) 0.1 %; Lymphocytes # (auto) 1.17 K/uL (1.2-3.4); Lymphocytes % (auto) 15.9 %; Mean Corpuscular Hemoglobin 33.9 pg (25-34); Mean Corpuscular Hgb Conc 33.7 g/dL (32-36); Mean Corpuscular Volume 100.5 fL (80-100); Mean Platelet Volume 9.1 fL (7.4-10.4); Monocytes # (auto) 0.42 K/uL (0.11-0.59); Monocytes % (auto) 5.7 %; Neutrophils # (auto) 5.73 K/uL (1.4-6.5); Neutrophils % (auto) 77.6 %; Platelet Count 326 K/uL (130-400); RDW Coefficient of Variation 13.9 % (11.5-14.5); RDW Standard Deviation 50.3 fL (36.4-46.3); Red Blood Count 3.72 M/uL (4.2-5.4); White Blood Count 7.38 K/uL (4.8-10.8)
[2020-11-24 13:31] LABS: Albumin Level 3.5 gm/dl (3.4-5.0); BUN Creatinine Ratio 20.7 (10-20); Calcium 9.4 mg/dl (8.5-10.1); Creatinine Clr Calc Pharmacy 78.9 ml/min; Est GFR (African American) 110.6; Est GFR (Non-African American) 95.5
[2020-11-24 13:34] LABS: Albumin Globulin Ratio 1.2 (0.9-2); Bilirubin,Total 0.5 mg/dl (0.2-1); Total Protein 6.5 gm/dl (6.4-8.2)
--- NOTE | 2020-11-24 15:39 | Emergency Department Note ---
History of Present Illness General Chief complaint: Abdominal Pain Stated complaint: SEVERE STOMACH PAIN Time Seen by Provider: 11/24/20 12:18 History of Present Illness Maximum Pain Intensity: 0 This patient is a pleasant 65-year-old female that presents ambulatory to the emergency department for evaluation of epigastric abdominal pain that has been intermittent since last night. The pain is sharp, stabbing in nature and comes in waves. She felt nauseated this morning without any vomiting. Her last bowel movement was reportedly loose this morning. The patient has a history of m ultiple abdominal surgeries. She had a complete hysterectomy and appendectomy. She also underwent chemo and radiation for ovarian cancer. She denies any fever. No urinary symptoms reported. No blood in her stool. Home Medications Medication Instructions Recorded Confirmed Type ascorbic acid (vitamin C) [Vitamin 1,000 mg PO QAM 04/15/19 11/24/20 History C] epinephrine [EpiPen] 0.3 mg IM Q3H PRN 04/15/19 11/24/20 History prochlorperazine maleate 10 mg PO UD PRN 10/09/20 11/24/20 History buspirone 7.5 mg tablet 7.5 mg PO TID PRN #45 tab 10/25/20 11/24/20 Rx cholecalciferol (vitamin D3) 25 2,000 unit PO QAM cap 10/25/20 11/24/20 History mcg (1,000 unit) capsule Chemo Infusions 0 mg IV Q4WK 11/24/20 11/24/20 History diltiazem HCl 180 mg PO QAM 11/24/20 11/24/20 History multivitamin 1 tab PO QAM 11/24/20 11/24/20 History Allergies Allergy/AdvReac Type Severity Reaction Status Date / Time cashew nut Allergy Severe ANAPHYLAXIS Verified 11/24/20 15:22 pecan nut Allergy Severe ANAPHYLAXIS Verified 11/24/20 15:22 walnut Allergy Severe ANAPHYLAXIS Verified 11/24/20 15:22 Beef Containing Products Allergy Intermediate itch hives Verified 11/24/20 15:22 milk Allergy Intermediate HIVES Verified 11/24/20 15:22 corn Allergy Mild itch Verified 11/24/20 15:22 shellfish derived Allergy Mild TESTED Verified 11/24/20 15:22 POSTITIVE ON SCRATCH TEST tomato Allergy Mild TESTED Verified 11/24/20 15:22 POSITIVE ON SCRATCH TEST hazelnut Allergy Unknown unknown Verified 11/24/20 15:22 per testing Histamine H2 Inhibitors Allergy Unknown unknown Verified 11/24/20 15:22 per tesing nut - unspecified Allergy Unknown unknown Verified 11/24/20 15:22 per testing peas Allergy Unknown unknown Verified 11/24/20 15:22 per testing pistachio nut Allergy Unknown unknown Verified 11/24/20 15:22 per testing scallops Allergy Unknown unknown Verified 11/24/20 15:22 per testing shrimp Allergy Unknown unknown Verified 11/24/20 15:22 per testing chicken derived Allergy Verified 11/24/20 15:22 wheat Allergy Verified 11/24/20 15:22 Grain Allergy Unknown unknown Uncoded 11/24/20 15:22 per testing Past Med/Surg History Medical History Adult situational stress disorder Anxiety Chronic back pain Degenerative cervical disc Gallstone GERD (gastroesophageal reflux disease) Hyperlipidemia Macular degeneration, dry Menopause Osteoarthritis Ovarian cancer 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 Small bowel obstruction SVT (supraventricular tachycardia) Symptomatic cholelithiasis Surgical History H/O lumpectomy left breast--benign History of colonoscopy History of hysterectomy for cancer hyster, bso, staging 3 C ov ca History of laparoscopy OVARIAN CYST REMOVED History of ovarian cystectomy History of tooth extraction some upper and lower teeth History of vascular access device right chest wall--Aport Hx laparoscopic cholecystectomy Hx laparoscopic cholecystectomy Dr. Rajesh Kraft on 05/03/19 Hx of foot surgery BILATERAL--hardware in place S/P dilation and curettage Family History Unknown Osteoporosis Father Hypertension Hyperlipidemia Hx of malignant mesothelioma Lung cancer Mother Hyperlipidemia Hypertension Mason disease Breast cancer CKD (chronic kidney disease) Grandfather Renal failure Brother Congenital heart disease Gluten intolerance Grandmother (Maternal) Occlusion of intestine or colon Denies family history of Ovarian cancer Prostate cancer Colorectal cancer Social History Smoking Status: Current every day smoker Cigarettes Per Day: 10; Second Hand Exposure: Yes; Do You Dip or Chew Tobacco: No; Tobacco Cessation Education Requested by Patient: No Hx Alcohol Use: Yes Alcohol type: wine Hx Substance Use: No Preferred Language: Hebrew Communication Ability: Effective Supervisor [employer] Required: No Beliefs That Will Affect Care: None marital status: Current Living Situation: Spouse current occupational status: employed Other Information That Helps Us Care for You: No Feels Safe at Home: Yes Safety Concerns: Feels Safe At This Time Childhood Exposure to Second-Hand Smoke: Yes Dental Care, Regularly: Yes Physical Activity Frequency: Daily Seatbelt Use: always Sunscreen Use: No Assistive Devices: None Review of Systems A total of 10 systems reviewed and were otherwise negative Physical Exam Vital Signs Vital Signs - 24 hr 11/24/20 14:20 11/24/20 15:29 11/24/20 17:02 Pulse Rate [Finger] 80 84 79 Respiratory Rate 20 20 16 Blood Pressure [Right Arm] 136/72 140/85 118/70 Blood Pressure Mean [Right Arm] 93 103 86 Pulse Oximetry 98 99 99 Oxygen Delivery Method Room Air Room Air Room Air 11/24/20 18:40 Pulse Rate [Finger] 72 Respiratory Rate 20 Blood Pressure [Right Arm] 119/60 Blood Pressure Mean [Right Arm] 79 Pulse Oximetry 95 Oxygen Delivery Method Room Air Constitutional WD/WN, vitals as above Eyes EOM intact bilaterally ENMT external ear and nose normal, oropharynx normal Neck trachea midline Respiratory normal respiratory effort, lungs clear to auscultation Cardiovascular RRR, no murmur, no edema Gastrointestinal (Abdomen) Tenderness palpation in the epigastric and right upper quadrant. Note guarding or rebound tenderness. Bowel sounds present in all 4 quadrants. Musculoskeletal no cyanosis or clubbing, extremities motor strength 5/5 Skin no rashes, warm and dry Neurologic Alert and oriented x3. No focal motor deficits. Psychiatric Acting appropriately Course Course Patient was seen and examined Vital signs including blood pressure were reviewed medications list was verified with patient Labs were obtained, and a saline lock was established Medications and fluids were ordered imaging was performed reviewed The patient required multiple doses of pain medication. We reviewed her results. She voiced understanding, and was in agreement with possible admission to the hospital for pain control. The case was discussed with the admitting team. They kindly agreed to evaluate the patient for likely inpatient management.. Consultations Consultation #1: Dr. Hernandez Administered Medications Diltiazem HCl (Diltiazem Er 180 Mg Capcr) 180 mg PO QAM [facility] Stop: 12/25/20 08:59 Last Admin: 11/25/20 08:47 Dose: 180 mg Documented by: [id number] Enoxaparin Sodium (Enoxaparin Inj 40 Mg/0.4 Ml Syr) [facility] [place] Stop: 12/25/20 08:59 Last Admin: 11/25/20 08:47 Dose: 40 mg Documented by: [id number] Hydromorphone HCl (Hydromorphone Inj 0.5 Mg/0.5 Ml Syr) 0.5 mg IV Q3H PRN PRN Reason: Pain Stop: 12/08/20 19:34 Last Admin: 11/25/20 12:06 Dose: 0.5 mg Documented by: [id number] Admin: 11/25/20 04:49 Dose: 0.5 mg Documented by: [id number] Admin: 11/24/20 22:59 Dose: 0.5 mg Documented by: [id number] Admin: 11/24/20 19:59 Dose: 0.5 mg Documented by: [id number] Sodium Chloride (Nss 1000ml) 1,000 mls @ 80 mls/hr IV .[id number] [facility] Stop: 12/25/20 01:29 Last Admin: 11/25/20 01:20 Dose: 80 mls/hr Documented by: [id number] Miscellaneous (Remove Nicoderm Patch) 1 ea N/A DAILY@[id number] [facility] Stop: 12/25/20 08:58 Last Admin: 11/25/20 08:47 Dose: Not Given Documented by: [id number] Nicotine (Nicotine 7 Mg/24 Hr Tdsy) 7 mg TD [facility] Stop: 12/25/20 08:59 Last Admin: 11/25/20 08:47 Dose: Not Given Documented by: [id number] Ondansetron HCl (Ondansetron Inj 2 Mg/Ml 2 Ml Vial) 4 mg IV Q6H PRN PRN Reason: Nausea Stop: 12/24/20 21:12 Last Admin: 11/25/20 04:49 Dose: 4 mg Documented by: [id number] Admin: 11/24/20 22:59 Dose: 4 mg Documented by: [id number] Discontinued Medications Hydromorphone HCl (Hydromorphone Inj 0.5 Mg/0.5 Ml Syr) 0.5 mg IV NOW STA Stop: 11/24/20 16:45 Last Admin: 11/24/20 17:01 Dose: 0.5 mg Documented by: [id number] Sodium Chloride (Nss 1000ml) 1,000 mls @ 999 mls/hr IV .[id number] ONE Stop: 11/24/20 13:41 Last Infusion: 11/24/20 14:01 Dose: 0 mls/hr Documented by: [id number] Admin: 11/24/20 13:00 Dose: 999 mls/hr Documented by: [id number] Sodium Chloride (Nss 1000ml) 1,000 mls @ 70 mls/hr IV .[id number] CHLOE Stop: 11/25/20 23:19 Last Infusion: 11/25/20 01:19 Dose: 0 mls/hr Documented by: [id number] Admin: 11/24/20 19:27 Dose: 70 mls/hr Documented by: [id number] Ioversol (Ioversol 100ml) 94 ml IV ONCE ONE Stop: 11/24/20 16:14 Last Admin: 11/24/20 16:14 Dose: 94 ml Documented by: [id number] Morphine Sulfate (Morphine Sulfate 4 Mg/Ml 1 Ml Carp\Vial) 4 mg IV NOW STA Stop: 11/24/20 12:42 Last Admin: 11/24/20 12:59 Dose: 4 mg Documented by: [id number] Morphine Sulfate (Morphine Sulfate 4 Mg/Ml 1 Ml Carp\Vial) 4 mg IV NOW STA Stop: 11/24/20 15:34 Last Admin: 11/24/20 15:38 Dose: 4 mg Documented by: [id number] Ondansetron HCl (Ondansetron Inj 2 Mg/Ml 2 Ml Vial) 4 mg IV NOW STA Stop: 11/24/20 12:42 Last Admin: 11/24/20 12:59 Dose: 4 mg Documented by: [id number] Medical Decision Making Medical Records Attestation: I reviewed the patient's medical records. Home Medications Current Medication List: was personally reviewed by me Laboratory Data Attestation: I reviewed the patient's lab results. Result diagrams: 11/24/20 13:01 11/25/20 07:49 Lab Results 11/24/20 11/24/20 11/24/20 Range/Units 13:01 13:01 13:01 WBC 7.38 (4.8-10.8) K/uL RBC 3.72 L (4.2-5.4) M/uL Hgb 12.6 (12.0-16.0) g/dL Hct 37.4 (37-47) % MCV 100.5 H (80-100) fL MCH 33.9 (25-34) pg MCHC 33.7 (32-36) g/dL RDW Std Deviation 50.3 H (36.4-46.3) fL RDW Coeff of Agnes 13.9 (11.5-14.5) % Plt Count 326 (130-400) K/uL MPV 9.1 (7.4-10.4) fL Immature Gran % (Auto) 0.1 % Neut % (Auto) 77.6 % Lymph % (Auto) 15.9 % [place] % (Auto) 5.7 % Eos % (Auto) 0.7 % Baso % (Auto) 0.0 % Neut # (Auto) 5.73 (1.4-6.5) K/uL Lymph # (Auto) 1.17 L (1.2-3.4) K/uL [place] # (Auto) 0.42 (0.11-0.59) K/uL Eos # (Auto) 0.05 (0-0.5) K/uL Baso # (Auto) 0.00 (0-0.2) K/uL Immature Gran # (Auto) 0.01 (0.00-0.02) K/uL Sodium 138 (136-145) mmol/L Potassium 4.0 (3.5-5.1) mmol/L Chloride 106 (98-107) mmol/L Carbon Dioxide 25 (21-32) mmol/L Anion Gap 8.0 (3-11) BUN 13 (7-18) mg/dl Creatinine 0.63 (0.6-1.2) mg/dl Est Cr Clr Drug Dosing 78.9 ml/min Est GFR ( Amer) 110.6 Est GFR (Non-Af Amer) 95.5 BUN/Creatinine Ratio 20.7 H (10-20) Glucose 107 H (70-99) mg/dl Lactate 0.7 (0.4-2.0) mmol/L Calcium 9.4 (8.5-10.1) mg/dl Magnesium (1.8-2.4) mg/dl Total Bilirubin 0.5 (0.2-1) mg/dl AST 12 L (15-37) U/L ALT 18 (12-78) U/L Alkaline Phosphatase 83 (45-117) U/L Total Protein 6.5 (6.4-8.2) gm/dl Albumin 3.5 (3.4-5.0) gm/dl Globulin 3.0 (2.5-4.0) gm/dl Albumin/Globulin Ratio 1.2 (0.9-2) Lipase 73 (73-393) U/L Urine Color Urine Appearance (Clear) Urine pH (4.5-7.5) Ur Specific [place] (1.000-1.030) Urine Protein (Negative) Urine Glucose (UA) (Negative) Urine Ketones (Negative) Urine Blood (Negative) Urine Nitrite (Negative) Urine Bilirubin (Negative) Urine Urobilinogen (Negative) Ur Leukocyte Esterase (Negative) 11/24/20 11/24/20 Range/Units 13:06 13:39 WBC (4.8-10.8) K/uL RBC (4.2-5.4) M/uL Hgb (12.0-16.0) g/dL Hct (37-47) % MCV (80-100) fL MCH (25-34) pg MCHC (32-36) g/dL RDW Std Deviation (36.4-46.3) fL RDW Coeff of Agnes (11.5-14.5) % Plt Count (130-400) K/uL MPV (7.4-10.4) fL Immature Gran % (Auto) % Neut % (Auto) % Lymph % (Auto) % [place] % (Auto) % Eos % (Auto) % Baso % (Auto) % Neut # (Auto) (1.4-6.5) K/uL Lymph # (Auto) (1.2-3.4) K/uL [place] # (Auto) (0.11-0.59) K/uL Eos # (Auto) (0-0.5) K/uL Baso # (Auto) (0-0.2) K/uL Immature Gran # (Auto) (0.00-0.02) K/uL Sodium (136-145) mmol/L Potassium (3.5-5.1) mmol/L Chloride (98-107) mmol/L Carbon Dioxide (21-32) mmol/L Anion Gap (3-11) BUN (7-18) mg/dl Creatinine (0.6-1.2) mg/dl Est Cr Clr Drug Dosing ml/min Est GFR ( Amer) Est GFR (Non-Af Amer) BUN/Creatinine Ratio (10-20) Glucose (70-99) mg/dl Lactate (0.4-2.0) mmol/L Calcium (8.5-10.1) mg/dl Magnesium 2.0 (1.8-2.4) mg/dl Total Bilirubin (0.2-1) mg/dl AST (15-37) U/L ALT (12-78) U/L Alkaline Phosphatase (45-117) U/L Total Protein (6.4-8.2) gm/dl Albumin (3.4-5.0) gm/dl Globulin (2.5-4.0) gm/dl Albumin/Globulin Ratio (0.9-2) Lipase (73-393) U/L Urine Color Yellow Urine Appearance Clear (Clear) Urine pH 5.5 (4.5-7.5) Ur Specific [place] 1.009 (1.000-1.030) Urine Protein Negative (Negative) Urine Glucose (UA) Negative (Negative) Urine Ketones Negative (Negative) Urine Blood Negative (Negative) Urine Nitrite Negative (Negative) Urine Bilirubin Negative (Negative) Urine Urobilinogen Negative (Negative) Ur Leukocyte Esterase Negative (Negative) Imaging Data Attestation: I personally reviewed and interpreted this imaging study as follows: Radiologist's Impression: CT abdomen and pelvis with IV and oral contrast IMPRESSION: 1. Findings consistent with a partial small bowel obstruction with transition point within the central pelvis. The obstruction could be due to peritoneal tumor or adhesions. 2. Slight increase in peritoneal carcinomatosis since prior CT of October 09, 2020. No significant change in retroperitoneal lymphadenopathy. Small amount of ascites. ACT 112: Negative or not required by law. Electronically signed by: Rivera Jimenez M.D. 11/24/2020 4:32 PM Dictated: 11/24/201620 Transcribed: 11/24/201620 MDM Narrative DIFFERENTIAL DIAGNOSIS: Gastroenteritis, Hepatitis, cholecystitis, cholangitis, biliary colic, pancreatitis, bowel obstruction, ureteral stone, among others were considered This patient is a 65-year-old female who presents emergency department with a main complaint of epigastric abdominal pain. On exam, her vital signs are stable. She was tender in the epigastric area. Labs reveal no leukocytosis. As the patient has had multiple surgeries and a history of bowel obstruction, this was a concern of another bowel obstruction. CT was performed. It appears that she has a partial bowel obstruction. Given the amount of pain medication that the patient required, I do not feel comfortable sending her home. It was felt that hospitalist consultation was warranted. The patient was in agreement. She remained stable in the emergency department. Impression & Plan SBO (small bowel obstruction) Discharge Plan Visit Data Chief Complaint: Abdominal Pain Stated Complaint: SEVERE STOMACH PAIN ED Provider: Kelechi Stevens ED Midlevel Provider: Mary Charlton Discharge Problem: SBO (small bowel obstruction) Patient Disposition: Admitted As Inpatient Discharge Instructions Interventions: ED Discharge Assessment Last Done: 11/24/20 19:53
[2020-11-24 15:57] LABS: Appearance Urine Clear (Clear); Bilirubin Urine Negative (Negative); Blood Urine Negative (Negative); Color Urine Yellow; Glucose Urine UA Negative (Negative); Ketones Urine Negative (Negative); Leukocyte Esterase Urine Negative (Negative); Nitrite Urine Negative (Negative); Protein Urine Negative (Negative); Specific Gravity Urine 1.009 (1.000-1.030); Urobilinogen Urine Negative (Negative); pH Urine 5.5 (4.5-7.5)
[2020-11-24] MEDS ORDERED: IOVERSOL 100ml IV ONE (16:13)
--- NOTE | 2020-11-24 16:33 | CT Scan Report ---
CT OF THE ABDOMEN AND PELVIS WITH CONTRAST CLINICAL HISTORY: Epigastric pain. History of obstruction. Ovarian cancer. COMPARISON STUDY: CT of the abdomen and pelvis October 09, 2020. TECHNIQUE: Following IV administration of 94 mL of Optiray-320, axial images of the abdomen and pelvi s were obtained from the lung bases to the proximal femurs. Images were reviewed in the axial, sagitt al, and coronal planes. IV contrast was administered without complication. Automated exposure contro l was utilized for the study. A dose lowering technique was utilized adhering to the principles of A NIKOLE. Water-soluble oral contrast was administered. CT DOSE: 295.91 mGy.cm FINDINGS: Lung bases are unremarkable. No pneumatosis, free air or portal venous gas is present. Mild biliary ductal dilatation is unchanged and likely related to cholecystectomy. A small amount of asci karina within the abdomen and pelvis is again noted. Numerous peritoneal implants are again noted. These are mildly increased since CT of October 09, 2020. A few capsular implants along the liver are note d. These have slightly increased. Major vasculature is patent. The spleen, adrenal glands, kidneys an d pancreas are normal. There is no hydronephrosis. Retroperitoneal lymphadenopathy is similar to prio r exam. The proximal to mid small bowel is mildly dilated fluid-filled. The distal small bowel is rel atively decompressed. Oral contrast does not reach the cecum. Probable transition point within the ce ntral pelvis is noted on image 338 of 436. No suspicious osseous lesions are noted. IMPRESSION: 1. Findings consistent with a partial small bowel obstruction with transition point within the centra l pelvis. The obstruction could be due to peritoneal tumor or adhesions. 2. Slight increase in peritoneal carcinomatosis since prior CT of October 09, 2020. No significant c hange in retroperitoneal lymphadenopathy. Small amount of ascites. ACT 112: Negative or not required by law. Electronically signed by: Rivera Jimenez M.D. 11/24/2020 4:32 PM
--- NOTE | 2020-11-24 16:34 | Electrocardiogram Report ---
Test Reason : Blood Pressure : / mmHG Vent. Rate : 079 BPM Atrial Rate : 079 BPM P-R Int : 164 ms QRS Dur : 082 ms QT Int : 392 ms P-R-T Axes : 052 -01 021 degrees QTc Int : 449 ms Normal sinus rhythm Normal ECG When compared with ECG of 21-JUL-2019 09:45, No significant change was found Confirmed by Avinash Moser ([id number]) on 11/24/2020 4:34:39 PM Referred By: REFERRED SELF Confirmed By:Bob Moser
[2020-11-24] MEDS ORDERED: HYDROmorphone INJ 0.5 MG/0.5 ML SYR IV STA (16:44)
--- NOTE | 2020-11-24 17:49 | History & Physical Report ---
Date of Service November 24, 2020 Assessment & Plan (1) Small bowel obstruction: Jo Ann Thornton is 65 y/o F w/ hx of ovarian cancer (s/p debulking, DENISSE, chemo) w/ peritoneal carcinomatosis and recurrent SBO who presents w/ upper abdominal pain since 11/20/20 with partial SBO on CT abd. Stable. partial small bowel obstruction - 2/2 worsening peritoneal carcinomatosis vs. adhesions, less likely functional - 0/4 SIRS criteria. - lower suspicion for infection (no leukocytosis, travel, recent illness, fever) - 09/2020 admission for SBO treated w/ NG tube and conservative management - 11/24/20 CT abd/pelv: partial small bowel obstruction with transition point within the central pelvis. The obstruction could be due to peritoneal tumor or adhesions. light increase in peritoneal carcinomatosis since prior CT of October 09, 2020. No significant change in retroperitoneal lymphadenopathy. Small amount of ascites. - 11/09/19 routine colonoscopy (sessile polyps, diveticulosis, nonbleeding internal hemorrhoids) did not show LBO. - s/p appendectomy and cholecystectomy, so less likely gall or appendix pathology - consult surgery - no emergent NG decompression indicated at this time because no vomiting, distension is not severe, and patient is clinically stable - encourage ambulation - avoid laxatives or stool softeners at this time because may worsen symptoms - NPO. mIVF. pain control (IV dilaudid PRN). IV zofran PRN - ecg ordered by ED for transient chest discomfort complaint prior to admission interview, since resolved. ecg nsr no ischemic changes, unchanged from 07/21/19 ecg - may be 2/2 abdominal discomfort which is upper abdominal - 10/16/20 echo. EF 55-60%. RV systolic pressure 30-40mmHg. no pericardial effusion - trend trops if complaint reoccurs FEN/GI: NPO. mIVF NSS 80/hr dvt ppx: Lovenox 40 mg sq daily code: full dispo: med/surg Present on Admission?: Yes (2) Ovarian cancer: - follows Dr. Emile Madrigal at [facility]. - known metastatic Stage IIIC ovarian serous adenocarcinoma. S/P hysterectomy, BSO and debulking of tumor 08/05/[address] Carnes. Subsequently received 6 cycles of chemotherapy (Taxol and carboplatin). completed 11/2019 - per patient, 09/2020 started 2nd round of chemo w/ carboplatin and doxorubicin and recently received 2nd dose around mid October 2020 - continue outpatient follow up (3) Smoking greater than 30 pack years: - current 1/2 ppd smoker. 30+ pack year hx - will order nicotine replacement (patch) (4) Anxiety: - continue home buspar (5) SVT (supraventricular tachycardia): - continue home diltiazem - last saw cardiology 11/10/19 - stable, tele monitoring not indicated at this time Present on Admission?: Yes (6) Pulmonary nodules: - not addressed this admission. satting well on room air. no respiratory complaints (7) Encounter for screening for COVID-19: - covid test ordered (8) DVT prophylaxis: - Lovenox sq 40 mg daily Admission and Anticipated Discharge Date Admission Date: 11/24/20 History of Present Illness Jo Ann Thornton is 65 y/o F w/ hx of ovarian cancer (s/p debulking, DENISSE, chemo) w/ peritoneal carcinomatosis, adhesions, recurrent SBO, and SVT who presents w/ worsening and increasing frequency of intermittent crampy upper abdominal pain since 11/20/20. The pain comes in waves, lasting 2-3 minutes and are 5-20 minutes apart, and moves towards periumbilical area. Pain was severe prior to ED arrival and currently is milder after IV morphine and dilaudid. She has had several small BMs this week and a larger BM this morning w/ no relief of the abdominal pain. Last flatus was this morning. She has not taken any medications for her symptoms. Has been eating normally, last meal dinner of 11/23/20. Her last admission for SBO was 10/09/21-10/12/21, treated conservatively and w/ NG tube decompression. ED course morphine sulfate IV 4 mg x2. dilaudid IV 0.5mg x1. Nss 1L bolus. normal lactate and lipase. no leukocytosis. CT abd shows partial SBO. Primary Care Provider: Jonah Shannon MD Allergies Allergy/AdvReac Type Severity Reaction Status Date / Time cashew nut Allergy Severe ANAPHYLAXIS Verified 11/24/20 15:22 pecan nut Allergy Severe ANAPHYLAXIS Verified 11/24/20 15:22 walnut Allergy Severe ANAPHYLAXIS Verified 11/24/20 15:22 Beef Containing Products Allergy Intermediate itch hives Verified 11/24/20 15:22 milk Allergy Intermediate HIVES Verified 11/24/20 15:22 corn Allergy Mild itch Verified 11/24/20 15:22 shellfish derived Allergy Mild TESTED Verified 11/24/20 15:22 POSTITIVE ON SCRATCH TEST tomato Allergy Mild TESTED Verified 11/24/20 15:22 POSITIVE ON SCRATCH TEST hazelnut Allergy Unknown unknown Verified 11/24/20 15:22 per testing Histamine H2 Inhibitors Allergy Unknown unknown Verified 11/24/20 15:22 per tesing nut - unspecified Allergy Unknown unknown Verified 11/24/20 15:22 per testing peas Allergy Unknown unknown Verified 11/24/20 15:22 per testing pistachio nut Allergy Unknown unknown Verified 11/24/20 15:22 per testing scallops Allergy Unknown unknown Verified 11/24/20 15:22 per testing shrimp Allergy Unknown unknown Verified 11/24/20 15:22 per testing chicken derived Allergy Verified 11/24/20 15:22 wheat Allergy Verified 11/24/20 15:22 Grain Allergy Unknown unknown Uncoded 11/24/20 15:22 per testing Home Medications Medication Instructions Recorded Confirmed Type ascorbic acid (vitamin C) [Vitamin 1,000 mg PO QAM 04/15/19 11/24/20 History C] epinephrine [EpiPen] 0.3 mg IM Q3H PRN 04/15/19 11/24/20 History prochlorperazine maleate 10 mg PO UD PRN 10/09/20 11/24/20 History buspirone 7.5 mg tablet 7.5 mg PO TID PRN #45 tab 10/25/20 11/24/20 Rx cholecalciferol (vitamin D3) 25 2,000 unit PO QAM cap 10/25/20 11/24/20 History mcg (1,000 unit) capsule Chemo Infusions 0 mg IV Q4WK 11/24/20 11/24/20 History diltiazem HCl 180 mg PO QAM 11/24/20 11/24/20 History multivitamin 1 tab PO QAM 11/24/20 11/24/20 History Past Med/Surg History Medical History Adult situational stress disorder Anxiety Chronic back pain Degenerative cervical disc Gallstone GERD (gastroesophageal reflux disease) Hyperlipidemia Macular degeneration, dry Menopause Osteoarthritis Ovarian cancer 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 Small bowel obstruction SVT (supraventricular tachycardia) Symptomatic cholelithiasis Surgical History H/O lumpectomy left breast--benign History of colonoscopy History of hysterectomy for cancer hyster, bso, staging 3 C ov ca History of laparoscopy OVARIAN CYST REMOVED History of ovarian cystectomy History of tooth extraction some upper and lower teeth History of vascular access device right chest wall--Aport Hx laparoscopic cholecystectomy Hx laparoscopic cholecystectomy Dr. Rajesh Kraft on 05/03/19 Hx of foot surgery BILATERAL--hardware in place S/P dilation and curettage Family History Unknown Osteoporosis Father Hypertension Hyperlipidemia Hx of malignant mesothelioma Lung cancer Mother Hyperlipidemia Hypertension Mason disease Breast cancer CKD (chronic kidney disease) Grandfather Renal failure Brother Congenital heart disease Gluten intolerance Grandmother (Maternal) Occlusion of intestine or colon Denies family history of Ovarian cancer Prostate cancer Colorectal cancer Social History Smoking Status: Current every day smoker Cigarettes Per Day: 10; Second Hand Exposure: Yes; Do You Dip or Chew Tobacco: No; Tobacco Cessation Education Requested by Patient: No Hx Alcohol Use: Yes Alcohol type: wine Hx Substance Use: No Preferred Language: Sri Lankan Communication Ability: Effective Ground School Instructor Required: No Beliefs That Will Affect Care: None marital status: Current Living Situation: Spouse current occupational status: employed Other Information That Helps Us Care for You: No Feels Safe at Home: Yes Safety Concerns: Feels Safe At This Time Childhood Exposure to Second-Hand Smoke: Yes Dental Care, Regularly: Yes Physical Activity Frequency: Daily Seatbelt Use: always Sunscreen Use: No Assistive Devices: None Review of Systems Review of Systems: Constitutional: Denies fever, chills Eyes: Denies blurry vision, vision changes Cardiovascular: Denies palpitations. some chest pressure earlier, resolved. Respiratory: Denies shortness of breath Gastrointestinal: Denies vomiting, constipation, diarrhea, melena, bloody stool Genitourinary: Denies urinary symptoms including dysuria, hematuria Musculoskeletal: Denies weakness, muscle aches/pain, joint aches/pain Neurological: Denies focal weakness. occasional MILLAN, hand paresthesias x 2 wks (attributes to chemo) Physical Exam Physical Exam: General: Grossly A&O. NAD. Uncomfortable appearing. HEENT: Atraumatic, normocephalic. EOMI Pulm: CTAB. -wheezes, -rales, -rhonchi. No respiratory distress. faint RLL exp low pitch Cardiac: RRR, -mrg. Radial pulses intact and symmetrical. no le edema. Abdominal: quieter bowel sounds on right half of abdomen, normal in left abdomen. mildly distended. TTP worst at LUQ, some at LLQ. Soft. No rebound. Some voluntary guarding initially, resolved on re examination 1 minute later. Musculoskeletal: No midline spinal TTP. Back: No CVA TTP. Integumentary: No erythema surrounding R upper chest wall port site. Results & Data Results & Data ([facility]) Vital Signs (Past 12 Hours) Vital Signs Temp Pulse Pulse Resp BP BP Pulse Ox 11/24/20 17:02 79 16 118/70 99 11/24/20 15:29 84 20 140/85 99 11/24/20 14:20 80 20 136/72 98 11/24/20 12:17 36 C L 98 H 18 110/71 99 Code Status & VTE Plan Code Status full code VTE Prophylaxis Plan VTE Prophylaxis will be ordered: Yes Supervising Physician Co-Signing Physician Notes Attending Attestation & Admission Note: Pt seen and examined, chart reviewed, admit care plan d/w resident Dr Ryley Sinclair. I agree with the cassidy components of his documentation. 65yo female with known ovarian cancer with peritoneal carcinomatosis who presents with severe, crampy, intermittent, upper abdominal pain starting earlier today. She also reports no flatus since early this am. Upon ED present ation a CT abd/pelvis demonstrated pSBO. NG tube was deferred due to lack of emesis and overall patient feeling better following IV pain meds. PMH/PSH/allergies/meds/sochx/famhx - reviewed VSS, no fever gen - ill-appearing, tired-appearing, uncomfortable mouth - MM dry neck - no JVD heart - RRR, s1 s2 lungs - CTA b/l abd - mildly distended, with percussion mild tympany, BS+ but decreased, no HSM, no mass, minimal tenderness upper abdomen to palpation ext - no edema labs reviewed CT abd/pelvis reviewed A/P: 1. pSBO in setting of carcinomatosis from ovarian ca and probable adhesions from multiple prior intra-abd surgeries 2. ovarian ca w/ carcinomatosis 3. tobacco dependence 4. h/o SVT NPO, IVF, pain meds, anti-emetics, gen surg consult, BMP am defer on NG tube for now unless progressive vomiting, worsening distension, etc ambulate nicoderm patch cont diltiazem for #4 Pierre Hernandez MD Resident Activity Tracking Resident Involvement: Resident Care Provided Care Provided: Adult Hospital Medicine
[2020-11-24] MEDS ORDERED: SODIUM CHLORIDE 0.9% 1000ML 1,000 ML IV SCH (18:45)
[2020-11-24] MEDS: HYDROmorphone INJ 0.5 MG/0.5 ML SYR IV PRN ×2 (19:59→22:59)
--- NOTE | 2020-11-24 20:40 | Surgery Consultation ---
Date of Consultation November 24, 2020 Assessment & Plan (1) Small bowel obstruction: The patient small bowel obstruction is likely on the basis of adhesions as well as peritoneal carcinomatosis. We recommend proceeding in the following manner: Keep the patient n.p.o. Provide hydration with IV fluid If nausea, vomiting, worsening abdominal pain, or worsening abdominal distention ensue would recommend placing an NG tube We will check a KUB in the morning to see if there is any progression of her obstructive pattern Remainder of the plan will be as outlined by the primary service Dr. Kraft-patient admitted to the emergency room with intermittent abdominal pain some nausea-she has a history of Metastatic ovarian cancer with carcinomatosis and ascites. She has been restarted on chemotherapy by And from [place]. She has not vomited.-We will continue with moderate p.o. intake and supportive care Trying to avoid NG tube. If it does come that the patient requires surgical intervention I would consider her transfer to [place] in [place] where Dr Carnes and his team have cared for the patient. History of Present Illness Reason for Consultation: History of Present Illness This is a 65-year-old female who presented to the emergency department earlier today secondary to abdominal pain for approximately 1 week. The patient says that the pain is an ache/cramp type pain that does not radiate and is located primarily in the epigastric area. She has not had any associated nausea or vomiting. She notes that she did have a normal bowel movement earlier this morning. She has a history of ovarian cancer and suffered small bowel obstructions in the past and noted that her symptoms were similar to what she experienced in the past so she came into the emergency department. In the emergency department she underwent a CT scan of the abdomen that showed findings consistent with a partial small bowel obstruction. There is also increase in peritoneal carcinomatosis. Labs were performed were white blood cell count, hemoglobin, hematocrit, and platelet count were all noted to be within normal range. Chemistry profile was performed where her sodium, potassium, BUN, and creatinine were all noted to be within normal range. Lactate level was not elevated. Patient notes that her most recent small bowel obstruction was in September 2020. This was successfully treated in a conservative manner utilizing hydration with IV fluids as well as NG tube for gastric decompression. Due to her CT scan findings and clinical presentation she has been admitted to the hospital to medical service and where are asked to follow along. At the time of my interview with the patient she was resting comfortably in bed and was in no distress. She further noted that she has not had any nausea or vomiting. Allergies Allergy/AdvReac Type Severity Reaction Status Date / Time cashew nut Allergy Severe ANAPHYLAXIS Verified 11/24/20 15:22 pecan nut Allergy Severe ANAPHYLAXIS Verified 11/24/20 15:22 walnut Allergy Severe ANAPHYLAXIS Verified 11/24/20 15:22 Beef Containing Products Allergy Intermediate itch hives Verified 11/24/20 15:22 milk Allergy Intermediate HIVES Verified 11/24/20 15:22 corn Allergy Mild itch Verified 11/24/20 15:22 shellfish derived Allergy Mild TESTED Verified 11/24/20 15:22 POSTITIVE ON SCRATCH TEST tomato Allergy Mild TESTED Verified 11/24/20 15:22 POSITIVE ON SCRATCH TEST hazelnut Allergy Unknown unknown Verified 11/24/20 15:22 per testing Histamine H2 Inhibitors Allergy Unknown unknown Verified 11/24/20 15:22 per tesing nut - unspecified Allergy Unknown unknown Verified 11/24/20 15:22 per testing peas Allergy Unknown unknown Verified 11/24/20 15:22 per testing pistachio nut Allergy Unknown unknown Verified 11/24/20 15:22 per testing scallops Allergy Unknown unknown Verified 11/24/20 15:22 per testing shrimp Allergy Unknown unknown Verified 11/24/20 15:22 per testing chicken derived Allergy Verified 11/24/20 15:22 wheat Allergy Verified 11/24/20 15:22 Grain Allergy Unknown unknown Uncoded 11/24/20 15:22 per testing Home Medications Medication Instructions Recorded Confirmed Type ascorbic acid (vitamin C) [Vitamin 1,000 mg PO QAM 04/15/19 11/24/20 History C] epinephrine [EpiPen] 0.3 mg IM Q3H PRN 04/15/19 11/24/20 History prochlorperazine maleate 10 mg PO UD PRN 10/09/20 11/24/20 History buspirone 7.5 mg tablet 7.5 mg PO TID PRN #45 tab 10/25/20 11/24/20 Rx cholecalciferol (vitamin D3) 25 2,000 unit PO QAM cap 10/25/20 11/24/20 History mcg (1,000 unit) capsule Chemo Infusions 0 mg IV Q4WK 11/24/20 11/24/20 History diltiazem HCl 180 mg PO QAM 11/24/20 11/24/20 History multivitamin 1 tab PO QAM 11/24/20 11/24/20 History Patient History Medical History Adult situational stress disorder Anxiety Chronic back pain Degenerative cervical disc Gallstone GERD (gastroesophageal reflux disease) Hyperlipidemia Macular degeneration, dry Menopause Osteoarthritis Ovarian cancer 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 Small bowel obstruction SVT (supraventricular tachycardia) Symptomatic cholelithiasis Surgical History H/O lumpectomy left breast--benign History of colonoscopy History of hysterectomy for cancer hyster, bso, staging 3 C ov ca History of laparoscopy OVARIAN CYST REMOVED History of ovarian cystectomy History of tooth extraction some upper and lower teeth History of vascular access device right chest wall--Aport Hx laparoscopic cholecystectomy Hx laparoscopic cholecystectomy Dr. Rajesh Kraft on 05/03/19 Hx of foot surgery BILATERAL--hardware in place S/P dilation and curettage Family History Unknown Osteoporosis Father Hypertension Hyperlipidemia Hx of malignant mesothelioma Lung cancer Mother Hyperlipidemia Hypertension Simpson disease Breast cancer CKD (chronic kidney disease) Grandfather Renal failure Brother Congenital heart disease Gluten intolerance Grandmother (Maternal) Occlusion of intestine or colon Denies family history of Ovarian cancer Prostate cancer Colorectal cancer Social History Smoking Status: Current every day smoker Cigarettes Per Day: 10; Second Hand Exposure: Yes; Do You Dip or Chew Tobacco: No; Tobacco Cessation Education Requested by Patient: No Hx Alcohol Use: Yes Alcohol type: wine Hx Substance Use: No Preferred Language: Bulgarian Communication Ability: Effective Crab Catcher Required: No Beliefs That Will Affect Care: None marital status: Current Living Situation: Spouse current occupational status: employed Other Information That Helps Us Care for You: No Feels Safe at Home: Yes Safety Concerns: Feels Safe At This Time Childhood Exposure to Second-Hand Smoke: Yes Dental Care, Regularly: Yes Physical Activity Frequency: Daily Seatbelt Use: always Sunscreen Use: No Assistive Devices: None Review of Systems Constitutional: no fever and no chills Eyes: no diplopia Ear, Nose, Mouth, Throat: no ear pain Respiratory: no cough and no dyspnea Cardiovascular: no chest pain Gastrointestinal: + abdominal pain; no nausea and no vomiting Genitourinary: no dysuria Musculoskeletal: no back pain Integumentary: no rash Neurologic: no localized weakness Physical Exam Constitutional: well developed and well nourished; no acute distress Eyes: no conjunctival abnormality ENMT: Ears: no hearing impairment Neck: trachea midline Respiratory: normal respiratory effort, lungs clear to auscultation Cardiovascular: Rate/Rhythm: regular rate and regular rhythm Gastrointestinal (Abdomen): Percussion/Palpation: + abdomen tender (Minor tenderness to palpation greatest in the epigastric area.) and abdomen soft Abdomen is noted to have slight distention Musculoskeletal: No calf tenderness Skin: no rashes, warm and dry Neurologic: moves all extremities Psychiatric: A+Ox3, euthymic affect Results & Data ([facility]) Vital Signs (Past 12 Hours) Vital Signs Temp Pulse Pulse Resp BP BP Pulse Ox 11/24/20 19:45 76 20 149/72 H 96 11/24/20 18:40 72 20 119/60 95 11/24/20 17:02 79 16 118/70 99 11/24/20 15:29 84 20 140/85 99 11/24/20 14:20 80 20 136/72 98 11/24/20 12:17 36 C L 98 H 18 110/71 99 PG Care Time/CCT Total # of Minutes Spent Total Time Spent with Patient: Total time spent is greater than 50% in coordination of care (as documented) at patient's floor/unit and/or counseling patient: Coding Level of Care Code 39548 Inpt Consult Level 4 Diagnoses Small bowel obstruction K56.609
[2020-11-24] MEDS ORDERED: busPIRone 7.5 MG TAB PO PRN (21:13)
[2020-11-24] MEDS: ONDANSETRON INJ 2 MG/ML 2 ML VIAL IV PRN (22:59)
[2020-11-24] MEDS ORDERED: HEPARIN 100 UNIT/ML 5ML FLUSH FLUSH PRN (23:03)
[2020-11-25] MEDS: SODIUM CHLORIDE 0.9% 1000ML 1,000 ML IV SCH ×2 (01:20→19:34)
[2020-11-25] MEDS: HYDROmorphone INJ 0.5 MG/0.5 ML SYR IV PRN ×4 (04:49→23:31)
[2020-11-25] MEDS: ONDANSETRON INJ 2 MG/ML 2 ML VIAL IV PRN ×2 (04:49→20:36)
--- NOTE | 2020-11-25 05:12 | Surgery Progress Note ---
Date of Service November 25, 2020 Assessment & Plan (1) Small bowel obstruction: Patient small bowel obstruction is likely from adhesions as well as peritoneal carcinomatosis. Continue n.p.o. status Continue hydration with IV fluids We will plan on checking a KUB this morning Patient developed worsening abdominal pain, or nausea and vomiting she may require an NG tube Dr. Kraft-patient does have intermittent abdominal pain with some nausea-she has not had any vomiting She only has mild distention but does have decreased bowel sounds with some firmness to her abdomen. She is in a very difficult situation with recurrent metastatic ovarian cancer with carcinomatosis and ascites. She does desire some sips of coffee-I told her if she begins to vomit we may have to replace the NG tube similar to Her last visit-she agrees to this if necessary. We will try some sips of coffee as desired. She expressed confidence And her surgical team at [facility] in [place]. For now we can continue with supportive care In our hospital. She may require TPN depending on her GI function Admission and Anticipated Discharge Date Admission Date: November 24, 2020 Subjective Patient notes that she had one episode of nausea without vomiting last night. She denies fevers, shakes, chills, or chest pain. She denies worsening abdominal pain. Since admission she has not had any bowel movements or is not passing any flatus. Physical Exam Constitutional: well developed and well nourished; no acute distress Respiratory: normal respiratory effort; no respiratory distress and no labored breathing Gastrointestinal (Abdomen): Percussion/Palpation: abdomen soft Minimal distention noted. No rebound tenderness or guarding. Bowel sounds are hypoactive. Results & Data ([facility]) Vital Signs (Past 12 Hours) Vital Signs Temp Pulse Resp BP Pulse Ox 11/24/20 23:10 37.2 C 75 16 114/66 92 11/24/20 20:15 36.8 C 86 16 122/71 96 11/24/20 19:45 76 20 149/72 H 96 11/24/20 18:40 72 20 119/60 95 PG Care Time/CCT Total # of Minutes Spent Total Time Spent with Patient: Total time spent is greater than 50% in coordination of care (as documented) at patient's floor/unit and/or counseling patient: Coding Level of Care Code 74580 Subseq Hosp Care Lvl 1 Diagnoses Small bowel obstruction K56.609
[2020-11-25 05:49] LABS: Influenza A virus by PCR Negative (Neg); Influenza B virus by PCR Negative (Neg); RSV by PCR Negative (Neg); SARS CoV2 RNA(COVID-19) InHosp NEGATIVE (Negative)
--- NOTE | 2020-11-25 06:16 | Billing Data ---
Date of Service November 24, 2020 Coding Level of Care Code 76973 Initial Inpt Care Lvl 2
--- NOTE | 2020-11-25 07:17 | XRay Report ---
KUB CLINICAL HISTORY: Small bowel obstruction. COMPARISON STUDY: CT of the abdomen and pelvis November 24, 2020. FINDINGS: There is contrast within the bladder from recent contrast-enhanced CT. Oral contrast from p rior CT is now located within the colon. Therefore, there is no evidence for a high-grade small bowel obstruction. Small bowel dilatation has slightly improved. There are cholecystectomy clips. IMPRESSION: Contrast from prior CT now within the colon. Therefore, no evidence for a high-grade sma ll bowel obstruction. Slight improvement in small bowel dilatation. Findings suggest a partial small bowel obstruction, likely improving. ACT 112: Negative or not required by law. Electronically signed by: Rivera Jimenez M.D. 11/25/2020 7:16 AM
[2020-11-25] MEDS: ENOXAPARIN INJ 40 MG/0.4 ML SYR SQ SCH (08:47)
[2020-11-25] MEDS: NICOTINE 7 MG/24 HR TDSY TD SCH (08:47)
[2020-11-25] MEDS: dilTIAZem ER 180 MG CAPCR PO SCH (08:47)
[2020-11-25 08:56] LABS: BUN Creatinine Ratio 17.6 (10-20); Calcium 8.8 mg/dl (8.5-10.1); Creatinine Clr Calc Pharmacy 72.1 ml/min; Est GFR (African American) 107.4; Est GFR (Non-African American) 92.6; Potassium 3.8 mmol/L (3.5-5.1)
--- NOTE | 2020-11-25 09:53 | Surgery Progress Note ---
Date of Service November 25, 2020 Assessment & Plan (1) Small bowel obstruction: KUB showed contrast into the colon Less dilated small bowel I spoke with the patient and we will try some clear liquids but told her not to try to drink the whole tray Continue supportive care Admission and Anticipated Discharge Date Admission Date: November 24, 2020 Results & Data ([facility]) Vital Signs (Past 12 Hours) Vital Signs Temp Pulse Resp BP Pulse Ox 11/25/20 07:22 37.2 C 79 16 114/68 95 11/24/20 23:10 37.2 C 75 16 114/66 92 PG Care Time/CCT Total # of Minutes Spent Total Time Spent with Patient: Total time spent is greater than 50% in coordination of care (as documented) at patient's floor/unit and/or counseling patient: Coding Level of Care Code None Diagnoses Small bowel obstruction K56.609
--- NOTE | 2020-11-25 11:43 | Hospitalist Consultation ---
Date of Consultation November 25, 2020 Assessment & Plan (1) Small bowel obstruction: (2) Ovarian cancer: (3) Smoking greater than 30 pack years: (4) Anxiety: (5) SVT (supraventricular tachycardia): (6) Pulmonary nodules: (7) Encounter for screening for COVID-19: (8) DVT prophylaxis: (9) Hyperlipidemia: (10) SBO (small bowel obstruction): History of Present Illness Attending Physician: Gelacio Olguin DO Allergies Allergy/AdvReac Type Severity Reaction Status Date / Time cashew nut Allergy Severe ANAPHYLAXIS Verified 11/24/20 15:22 pecan nut Allergy Severe ANAPHYLAXIS Verified 11/24/20 15:22 walnut Allergy Severe ANAPHYLAXIS Verified 11/24/20 15:22 Beef Containing Products Allergy Intermediate itch hives Verified 11/24/20 15:22 milk Allergy Intermediate HIVES Verified 11/24/20 15:22 corn Allergy Mild itch Verified 11/24/20 15:22 shellfish derived Allergy Mild TESTED Verified 11/24/20 15:22 POSTITIVE ON SCRATCH TEST tomato Allergy Mild TESTED Verified 11/24/20 15:22 POSITIVE ON SCRATCH TEST hazelnut Allergy Unknown unknown Verified 11/24/20 15:22 per testing Histamine H2 Inhibitors Allergy Unknown unknown Verified 11/24/20 15:22 per tesing nut - unspecified Allergy Unknown unknown Verified 11/24/20 15:22 per testing peas Allergy Unknown unknown Verified 11/24/20 15:22 per testing pistachio nut Allergy Unknown unknown Verified 11/24/20 15:22 per testing scallops Allergy Unknown unknown Verified 11/24/20 15:22 per testing shrimp Allergy Unknown unknown Verified 11/24/20 15:22 per testing chicken derived Allergy Verified 11/24/20 15:22 wheat Allergy Verified 11/24/20 15:22 Grain Allergy Unknown unknown Uncoded 11/24/20 15:22 per testing Home Medications Medication Instructions Recorded Confirmed Type ascorbic acid (vitamin C) [Vitamin 1,000 mg PO QAM 04/15/19 11/24/20 History C] epinephrine [EpiPen] 0.3 mg IM Q3H PRN 04/15/19 11/24/20 History prochlorperazine maleate 10 mg PO UD PRN 10/09/20 11/24/20 History buspirone 7.5 mg tablet 7.5 mg PO TID PRN #45 tab 10/25/20 11/24/20 Rx cholecalciferol (vitamin D3) 25 2,000 unit PO QAM cap 10/25/20 11/24/20 History mcg (1,000 unit) capsule Chemo Infusions 0 mg IV Q4WK 11/24/20 11/24/20 History diltiazem HCl 180 mg PO QAM 11/24/20 11/24/20 History multivitamin 1 tab PO QAM 11/24/20 11/24/20 History Patient History Medical History Adult situational stress disorder Anxiety Chronic back pain Degenerative cervical disc Gallstone GERD (gastroesophageal reflux disease) Hyperlipidemia Macular degeneration, dry Menopause Osteoarthritis Ovarian cancer 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 Small bowel obstruction SVT (supraventricular tachycardia) Symptomatic cholelithiasis Surgical History H/O lumpectomy left breast--benign History of colonoscopy History of hysterectomy for cancer hyster, bso, staging 3 C ov ca History of laparoscopy OVARIAN CYST REMOVED History of ovarian cystectomy History of tooth extraction some upper and lower teeth History of vascular access device right chest wall--Aport Hx laparoscopic cholecystectomy Hx laparoscopic cholecystectomy Dr. Rajesh Kraft on 05/03/19 Hx of foot surgery BILATERAL--hardware in place S/P dilation and curettage Family History Unknown Osteoporosis Father Hypertension Hyperlipidemia Hx of malignant mesothelioma Lung cancer Mother Hyperlipidemia Hypertension Mason disease Breast cancer CKD (chronic kidney disease) Grandfather Renal failure Brother Congenital heart disease Gluten intolerance Grandmother (Maternal) Occlusion of intestine or colon Denies family history of Ovarian cancer Prostate cancer Colorectal cancer Social History Smoking Status: Current every day smoker Cigarettes Per Day: 10; Second Hand Exposure: Yes; Do You Dip or Chew Tobacco: No; Tobacco Cessation Education Requested by Patient: No Hx Alcohol Use: Yes Alcohol type: wine Hx Substance Use: No Preferred Language: Guatemalan Communication Ability: Effective Costume Draper Required: No Beliefs That Will Affect Care: None marital status: Current Living Situation: Spouse current occupational status: employed Other Information That Helps Us Care for You: No Feels Safe at Home: Yes Safety Concerns: Feels Safe At This Time Childhood Exposure to Second-Hand Smoke: Yes Dental Care, Regularly: Yes Physical Activity Frequency: Daily Seatbelt Use: always Sunscreen Use: No Assistive Devices: None Results & Data Results & Data ([facility]) Vital Signs (Past 12 Hours) Vital Signs Temp Pulse Resp BP Pulse Ox 11/25/20 07:22 37.2 C 79 16 114/68 95 Laboratory Results Laboratory Results - last 24 hr 11/24/20 11/24/20 11/24/20 13:01 13:01 13:01 WBC 7.38 RBC 3.72 L Hgb 12.6 Hct 37.4 MCV 100.5 H MCH 33.9 MCHC 33.7 RDW Std Deviation 50.3 H RDW Coeff of Agnes 13.9 Plt Count 326 MPV 9.1 Immature Gran % (Auto) 0.1 Neut % (Auto) 77.6 Lymph % (Auto) 15.9 [place] % (Auto) 5.7 Eos % (Auto) 0.7 Baso % (Auto) 0.0 Neut # (Auto) 5.73 Lymph # (Auto) 1.17 L [place] # (Auto) 0.42 Eos # (Auto) 0.05 Baso # (Auto) 0.00 Immature Gran # (Auto) 0.01 Sodium 138 Potassium 4.0 Chloride 106 Carbon Dioxide 25 Anion Gap 8.0 BUN 13 Creatinine 0.63 Est Cr Clr Drug Dosing 78.9 Est GFR ( Amer) 110.6 Est GFR (Non-Af Amer) 95.5 BUN/Creatinine Ratio 20.7 H Glucose 107 H Lactate 0.7 Calcium 9.4 Magnesium Total Bilirubin 0.5 AST 12 L ALT 18 Alkaline Phosphatase 83 Total Protein 6.5 Albumin 3.5 Globulin 3.0 Albumin/Globulin Ratio 1.2 Lipase 73 Urine Color Urine Appearance Urine pH Ur Specific [place] Urine Protein Urine Glucose (UA) Urine Ketones Urine Blood Urine Nitrite Urine Bilirubin Urine Urobilinogen Ur Leukocyte Esterase COVID-19 Eval Order SARS-CoV-2 (PCR) Influenza Type A (PCR) Influenza Type B (PCR) RSV (RT-PCR) 11/24/20 11/24/20 11/25/20 13:06 13:39 04:45 WBC RBC Hgb Hct MCV MCH MCHC RDW Std Deviation RDW Coeff of Agnes Plt Count MPV Immature Gran % (Auto) Neut % (Auto) Lymph % (Auto) [place] % (Auto) Eos % (Auto) Baso % (Auto) Neut # (Auto) Lymph # (Auto) [place] # (Auto) Eos # (Auto) Baso # (Auto) Immature Gran # (Auto) Sodium Potassium Chloride Carbon Dioxide Anion Gap BUN Creatinine Est Cr Clr Drug Dosing Est GFR ( Amer) Est GFR (Non-Af Amer) BUN/Creatinine Ratio Glucose Lactate Calcium Magnesium 2.0 Total Bilirubin AST ALT Alkaline Phosphatase Total Protein Albumin Globulin Albumin/Globulin Ratio Lipase Urine Color Yellow Urine Appearance Clear Urine pH 5.5 Ur Specific [place] 1.009 Urine Protein Negative Urine Glucose (UA) Negative Urine Ketones Negative Urine Blood Negative Urine Nitrite Negative Urine Bilirubin Negative Urine Urobilinogen Negative Ur Leukocyte Esterase Negative COVID-19 Eval Order CovFluRsv at [facility] SARS-CoV-2 (PCR) Influenza Type A (PCR) Influenza Type B (PCR) RSV (RT-PCR) 11/25/20 11/25/20 04:45 07:49 WBC RBC Hgb Hct MCV MCH MCHC RDW Std Deviation RDW Coeff of Agnes Plt Count MPV Immature Gran % (Auto) Neut % (Auto) Lymph % (Auto) [place] % (Auto) Eos % (Auto) Baso % (Auto) Neut # (Auto) Lymph # (Auto) [place] # (Auto) Eos # (Auto) Baso # (Auto) Immature Gran # (Auto) Sodium 139 Potassium 3.8 Chloride 107 Carbon Dioxide 27 Anion Gap 5.0 BUN 12 Creatinine 0.69 Est Cr Clr Drug Dosing 72.1 Est GFR ( Amer) 107.4 Est GFR (Non-Af Amer) 92.6 BUN/Creatinine Ratio 17.6 Glucose 98 Lactate Calcium 8.8 Magnesium Total Bilirubin AST ALT Alkaline Phosphatase Total Protein Albumin Globulin Albumin/Globulin Ratio Lipase Urine Color Urine Appearance Urine pH Ur Specific [place] Urine Protein Urine Glucose (UA) Urine Ketones Urine Blood Urine Nitrite Urine Bilirubin Urine Urobilinogen Ur Leukocyte Esterase COVID-19 Eval Order SARS-CoV-2 (PCR) NEGATIVE Influenza Type A (PCR) Negative Influenza Type B (PCR) Negative RSV (RT-PCR) Negative Medications Administered Current Inpatient Medications Buspirone HCl (Buspirone 7.5 Mg Tab) 7.5 mg PO TID PRN PRN Reason: anxiety Stop: 12/24/20 21:12 Diltiazem HCl (Diltiazem Er 180 Mg Capcr) 180 mg PO QAM [facility] Stop: 12/25/20 08:59 Last Admin: 11/25/20 08:47 Dose: 180 mg Documented by: Enoxaparin Sodium (Enoxaparin Inj 40 Mg/0.4 Ml Syr) 40 mg SQ QAM [facility] Stop: 12/25/20 08:59 Last Admin: 11/25/20 08:47 Dose: 40 mg Documented by: Heparin Sodium (Porcine) (Heparin 100 Unit/Ml 5ml Flush) 5 ml FLUSH PRN PRN PRN Reason: Flush Stop: 12/24/20 23:02 Hydromorphone HCl (Hydromorphone Inj 0.5 Mg/0.5 Ml Syr) 0.5 mg IV Q3H PRN PRN Reason: Pain Stop: 12/08/20 19:34 Last Admin: 11/25/20 04:49 Dose: 0.5 mg Documented by: Sodium Chloride (Nss 1000ml) 1,000 mls @ 80 mls/hr IV .[id number] [facility] Stop: 12/25/20 01:29 Last Admin: 11/25/20 01:20 Dose: 80 mls/hr Documented by: Miscellaneous (Remove Nicoderm Patch) 1 ea N/A DAILY@[id number] [facility] Stop: 12/25/20 08:58 Last Admin: 11/25/20 08:47 Dose: Not Given Documented by: Nicotine (Nicotine 7 Mg/24 Hr Tdsy) 7 mg TD [facility] Stop: 12/25/20 08:59 Last Admin: 11/25/20 08:47 Dose: Not Given Documented by: Ondansetron HCl (Ondansetron Inj 2 Mg/Ml 2 Ml Vial) 4 mg IV Q6H PRN PRN Reason: Nausea Stop: 12/24/20 21:12 Last Admin: 11/25/20 04:49 Dose: 4 mg Documented by: PG Care Time/CCT Total # of Minutes Spent Total Time Spent with Patient: Total time spent is greater than 50% in coordination of care (as documented) at patient's floor/unit and/or counseling patient: Coding Diagnoses Small bowel obstruction K56.609 Ovarian cancer C56.9 Smoking greater than 30 pack years F17.210 Anxiety F41.9 SVT (supraventricular tachycardia) I47.1 Pulmonary nodules R91.8 Encounter for screening for COVID-19 Z11.52 DVT prophylaxis Z29.9 Hyperlipidemia E78.5 SBO (small bowel obstruction) K56.609
--- NOTE | 2020-11-25 16:18 | Hospitalist Progress Note ---
Date of Service November 25, 2020 Assessment & Plan (1) Small bowel obstruction: Overall improving, KUB obtained this a.m. Partial small bowel obstruction noted on KUB General surgery recommended clear liquids Pain controlled Continue IV fluids (2) Ovarian cancer: - follows Dr. Emile Madrigal at [facility]. - known metastatic Stage IIIC ovarian serous adenocarcinoma. S/P hysterectomy, BSO and debulking of tumor 08/05/[address] Carnes. Subsequently received 6 cycles of chemotherapy (Taxol and carboplatin). completed 11/2019 - per patient, 09/2020 started 2nd round of chemo w/ carboplatin and doxorubicin and recently received 2nd dose around mid October 2020 - continue outpatient follow up (3) Smoking greater than 30 pack years: Tobacco cessation encouraged Neck attain replacement therapy Follow-up with primary care (4) Anxiety: No new concerns overnight Continue current medications (5) SVT (supraventricular tachycardia): Evaluated chest pain as noted above no symptoms of palpitations continue telemetry with no new symptoms overnight. (6) Pulmonary nodules: Ongoing outpatient evaluation (7) Encounter for screening for COVID-19: Negative test (8) DVT prophylaxis: Lovenox tx. (9) Chest pain: Symptoms not recurred EKG with no acute changes Describes increasing GERD like symptoms which may be potential cause. No new p ulmonary symptoms, or history of DVT. Will continue to monitor and obtain further evaluation if needed. Consideration for cardia and or pulmonary evaluation with recurrence. Subjective No significant changes overnight. The patient continues to have abdominal discomfort, after walking around the halls today she had some cramping in the upper portion of the abdomen. She has more uncomfortable at this point but denies any new fevers chills no nausea vomiting. Has not had a bowel movement on today. Last evening she had an episode of right-sided chest discomfort which was evaluated with an EKG, no acute changes. No repeat symptoms She does describe having more GERD is symptoms in the last month with her chemotherapy Denies any chest pain, cough, palpitations Review of Systems Review of Systems: All systems reviewed & are unremarkable except as noted in Subjective Physical Exam Physical Exam: Constitutional: WD/WN, vitals as above Respiratory: Effort normal, CTA B/L CV: RRR, no murmur, no edema Abdomen: Decreased bowel sounds Neurologic: Normal gait Results & Data Results & Data ([facility]) Vital Signs (Past 12 Hours) Vital Signs Temp Pulse Resp BP Pulse Ox 11/25/20 07:22 37.2 C 79 16 114/68 95 Laboratory Results Laboratory Results - last 24 hr 11/24/20 11/25/20 11/25/20 13:06 04:45 04:45 Sodium Potassium Chloride Carbon Dioxide Anion Gap BUN Creatinine Est Cr Clr Drug Dosing Est GFR ( Amer) Est GFR (Non-Af Amer) BUN/Creatinine Ratio Glucose Calcium Magnesium 2.0 COVID-[address] Eval [address] CovFluRsv at [facility] SARS-CoV-2 (PCR) NEGATIVE Influenza Type A (PCR) Negative Influenza Type B (PCR) Negative RSV (RT-PCR) Negative 11/25/20 07:49 Sodium 139 Potassium 3.8 Chloride 107 Carbon Dioxide 27 Anion Gap 5.0 BUN 12 Creatinine 0.69 Est Cr Clr Drug Dosing 72.1 Est GFR ( Amer) 107.4 Est GFR (Non-Af Amer) 92.6 BUN/Creatinine Ratio 17.6 Glucose 98 Calcium 8.8 Magnesium COVID-19 Eval Order SARS-CoV-2 (PCR) Influenza Type A (PCR) Influenza Type B (PCR) RSV (RT-PCR) Medications Administered Current Inpatient Medications Buspirone HCl (Buspirone 7.5 Mg Tab) 7.5 mg PO TID PRN PRN Reason: anxiety Stop: 12/24/20 21:12 Diltiazem HCl (Diltiazem Er 180 Mg Capcr) 180 mg PO QAM [facility] Stop: 12/25/20 08:59 Last Admin: 11/25/20 08:47 Dose: 180 mg Documented by: Enoxaparin Sodium (Enoxaparin Inj 40 Mg/0.4 Ml Syr) 40 mg SQ QAM [facility] Stop: 12/25/20 08:59 Last Admin: 11/25/20 08:47 Dose: 40 mg Documented by: Heparin Sodium (Porcine) (Heparin 100 Unit/Ml 5ml Flush) 5 ml FLUSH PRN PRN PRN Reason: Flush Stop: 12/24/20 23:02 Hydromorphone HCl (Hydromorphone Inj 0.5 Mg/0.5 Ml Syr) 0.5 mg IV Q3H PRN PRN Reason: Pain Stop: 12/08/20 19:34 Last Admin: 11/25/20 12:06 Dose: 0.5 mg Documented by: Sodium Chloride (Nss 1000ml) 1,000 mls @ 80 mls/hr IV .[id number] [facility] Stop: 12/25/20 01:29 Last Admin: 11/25/20 01:20 Dose: 80 mls/hr Documented by: Miscellaneous (Remove Nicoderm Patch) 1 ea N/A DAILY@0859 [facility] Stop: 12/25/20 08:58 Last Admin: 11/25/20 08:47 Dose: Not Given Documented by: Nicotine (Nicotine 7 Mg/24 Hr Tdsy) 7 mg TD QAM [facility] Stop: 12/25/20 08:59 Last Admin: 11/25/20 08:47 Dose: Not Given Documented by: Ondansetron HCl (Ondansetron Inj 2 Mg/Ml 2 Ml Vial) 4 mg IV Q6H PRN PRN Reason: Nausea Stop: 12/24/20 21:12 Last Admin: 11/25/20 04:49 Dose: 4 mg Documented by: PG Care Time/CCT Total # of Minutes Spent Total Time Spent with Patient: Total time spent is greater than 50% in coordination of care (as documented) at patient's floor/unit and/or counseling patient: Coding Level of Care Code 47634 Subseq Hosp Care Lvl 2 Diagnoses Small bowel obstruction K56.609 Ovarian cancer C56.9 Smoking greater than 30 pack years F17.210 Anxiety F41.9 SVT (supraventricular tachycardia) I47.1 Pulmonary nodules R91.8 Encounter for screening for COVID-19 Z11.52 DVT prophylaxis Z29.9 Chest pain R07.9
[2020-11-25] MEDS ORDERED: bisacodyL 10 MG SUPP PR STA (18:18)
[2020-11-26] MEDS: HYDROmorphone INJ 0.5 MG/0.5 ML SYR IV PRN ×5 (03:14→23:54)
[2020-11-26] MEDS: ONDANSETRON INJ 2 MG/ML 2 ML VIAL IV PRN (03:14)
--- NOTE | 2020-11-26 06:01 | Surgery Progress Note ---
Date of Service November 26, 2020 Assessment & Plan (1) SBO (small bowel obstruction): Continue clear liquids for the present time. Due to the patient's noted abdominal pain would go slow with diet advancement Dr. Kraftpatient is tolerating clear liquids and having small bowel movements We will try full liquids and also add scrambled eggs if desired. I told her sometimes a tablespoon of mineral oil 2-3 times per week can help-olive oil would be all right as well-to help with bowel movements Admission and Anticipated Discharge Date Admission Date: November 24, 2020 Subjective The patient did not have any nausea or vomiting over the past 24 hours. She does note some cramp-like abdominal pain that comes and goes. She was able to tolerate some liquids last night. Physical Exam Constitutional: well developed and well nourished; no acute distress Eyes: no conjunctival abnormality ENMT: Ears: no hearing impairment Neck: trachea midline Respiratory: normal respiratory effort, lungs clear to auscultation normal respiratory effort; no respiratory distress and no labored breathing Cardiovascular: Rate/Rhythm: regular rate and regular rhythm Gastrointestinal (Abdomen): Percussion/Palpation: + abdomen tender (Minor tenderness noted with palpation) and abdomen soft Skin: no rashes, warm and dry Neurologic: moves all extremities Psychiatric: A+Ox3, euthymic affect Results & Data ([facility]) Vital Signs (Past 12 Hours) Vital Signs Temp Pulse Resp BP Pulse Ox 11/25/20 23:19 36.8 C 67 16 100/57 L 94 PG Care Time/CCT Total # of Minutes Spent Total Time Spent with Patient: Total time spent is greater than 50% in coordination of care (as documented) at patient's floor/unit and/or counseling patient: Coding Level of Care Code 26980 Subseq Hosp Care Lvl 1 Diagnoses SBO (small bowel obstruction) K56.609
[2020-11-26] MEDS: SODIUM CHLORIDE 0.9% 1000ML 1,000 ML IV SCH ×2 (06:47→19:04)
[2020-11-26] MEDS: NICOTINE 7 MG/24 HR TDSY TD SCH (07:56)
[2020-11-26] MEDS: dilTIAZem ER 180 MG CAPCR PO SCH (07:56)
[2020-11-26] MEDS: ENOXAPARIN INJ 40 MG/0.4 ML SYR SQ SCH (07:56)
--- NOTE | 2020-11-26 09:13 | Hospitalist Progress Note ---
Date of Service November 26, 2020 Assessment & Plan (1) Small bowel obstruction: * patient with known metastatic Stage IIIC ovarian serous adenocarcinoma. S/P hysterectomy, BSO and debulking of tumor 08/05/[address] Carnes. Subsequently received 6 cycles of chemotherapy (Taxol and carboplatin). completed 11/2019 * per patient, 09/2020 started 2nd round of chemo w/ carboplatin and doxorubicin and recently received 2nd dose around mid October 2020 * Previous admission September 2020 for similar * CTA/P consistent with a partial small bowel obstruction with transition point within the central pelvis with slight increase in peritoneal carcinomatosis since prior CT of October 09, 2020. CA 125 markers trending down on repeat on review of outpt labs * General surgery on consult -- conservative management * No NGT at this time * KUB with improvement on 11/25 * Has been having multiple small BM, passing gas * Diet advanced today and tolerared liquids and scrambled eggs * Pain control, IVF for supportive care * Daily labs and electrolyte monitoring and replacement as needed * Mag low 1.7 -- ordered 2gm IV to help with GI motility as well * Advance diet per general surgery recommendations, now on full liquid diet (can have eggs if she desires) * -- also with recs for a tablespoon of mineral oil 2-3 times per week can help-olive oil would be all right as well-to help with bowel movements at discharge * Continue to monitor (2) Ovarian cancer: * follows Dr. Emile Madrigal at [facility] and locally with Ana Maria Hoyt * known metastatic Stage IIIC ovarian serous adenocarcinoma. S/P hysterectomy, BSO and debulking of tumor 08/05/[address] Carnes. Subsequently received 6 cycles of chemotherapy (Taxol and carboplatin). completed 11/2019 * per patient, 09/2020 started 2nd round of chemo w/ carboplatin and doxorubicin and recently received 2nd dose around October 2020 * continue outpatient follow up (3) Smoking greater than 30 pack years: * Tobacco cessation encouraged * Nicotine replacement therapy * Follow-up with primary care (4) Anxiety: * No new concerns overnight * Continue buspar prn * Discussed anxiety/depression -- stable on current prn medications (5) SVT (supraventricular tachycardia): * No new issues noted * HR controlled and in the 60-70s on examination, regular * Continue diltiazem 180mg daily * Telemetry discontinued * Continue to monitor (6) Pulmonary nodules: * Ongoing outpatient evaluation -- seen initially on CT Lung March 2019, however stable on repeat imaging December 2019 without evidence of metastatic disease within the chest * follow up outpatient (7) Encounter for screening for COVID-19: * Negative test (8) Chest pain: * Symptoms not recurred * EKG with no acute changes * Describes increasing GERD like symptoms which may be potential cause. No new pulmonary symptoms, or history of DVT. * Will continue to monitor and obtain further evaluation if needed. Consideration for cardiac and or pulmonary evaluation with recurrence. * No reported issues with reflux today * Continue to monitor for recurrence (9) DVT prophylaxis: * Lovenox SQ while inpatient * Ambulation encouraged -- has been walking the halls several times daily Dispo: continued inpatient stay, likely additional 2 days Admission and Anticipated Discharge Date Admission Date: November 24, 2020 Supervising Physician Co-Signing Physician Notes MARILIA Supervision Note: I did not personally see or examine the patient today, but I verified all cassidy points of MARILIA Hylton's assessment and plan with the following exceptions/additions: None Subjective Patient evaluated this morning. Had 1 loose BM last night, small and gritty in appearance but without blood. Noted 2 larger loose BM this morning, still gritty but less liquid. Pain controlled but present. Comes in waves to RUQ but is diffuse. She notes when she came in the waves would be increased in frequency and intense, and these have decreased in both frequency and intensity. Had liquids with scrambled eggs this morning and did not have increased pain. Plans to continue to monitor over next couple of days until bowel function returns to normal. No fever, chills, chest pain, shortness of breath, nausea, or dysuria reported at this time. Of note, follow [facility] and got 2nd dose of doxorubicin. Prior reaction to carboplatin after her 7th dose. Review of CA125 show decrease from prior under current regimen. Will need f/u at discharge. Questions/concerns addressed at this time. Review of Systems Review of Systems: All systems reviewed & are unremarkable except as noted in HPI & below Physical Exam Constitutional: WD/WN, vitals as above well developed and well nourished; no acute distress Eyes: EOM intact bilaterally; no conjunctival abnormality ENMT: external ear and nose normal, oropharynx normal Ears: no hearing impairment Neck: trachea midline Respiratory: normal respiratory effort, lungs clear to auscultation normal respiratory effort; no respiratory distress and no labored breathing Cardiovascular: RRR, no murmur, no edema Rate/Rhythm: regular rate and regular rhythm Gastrointestinal (Abdomen): Inspection/Auscultation: normal bowel sounds Percussion/Palpation: + abdomen tender (Minor tenderness RUQ/epigastric, improved) and abdomen soft; no guarding and abdomen not rigid Musculoskeletal: no cyanosis or clubbing, extremities motor strength 5/5 observed walking the dumont several times, no gait abnormality noted Skin: warm, dry Neurologic: moves all extremities Psychiatric: A+Ox3, euthymic affect Genitourinary: NO ROTH Results & Data Results & Data ([facility]) Vital Signs (Past 12 Hours) Vital Signs Temp Pulse Resp BP Pulse Ox 11/26/20 07:13 36.8 C 79 16 124/77 94 11/25/20 23:19 36.8 C 67 16 100/57 L 94 Laboratory Results 11/26/20 11/26/20 Range/Units 09:19 09:19 WBC 5.52 (4.8-10.8) K/uL RBC 3.19 L (4.2-5.4) M/uL Hgb 10.8 L (12.0-16.0) g/dL Hct 32.4 L (37-47) % MCV 101.6 H (80-100) fL MCH 33.9 (25-34) pg MCHC 33.3 (32-36) g/dL RDW Std Deviation 51.3 H (36.4-46.3) fL RDW Coeff of Agnes 13.9 (11.5-14.5) % Plt Count 286 (130-400) K/uL MPV 8.9 (7.4-10.4) fL Immature Gran % (Auto) 0.2 % Neut % (Auto) 62.5 % Lymph % (Auto) 30.6 % [place] % (Auto) 5.4 % Eos % (Auto) 1.1 % Baso % (Auto) 0.2 % Neut # (Auto) 3.45 (1.4-6.5) K/uL Lymph # (Auto) 1.69 (1.2-3.4) K/uL [place] # (Auto) 0.30 (0.11-0.59) K/uL Eos # (Auto) 0.06 (0-0.5) K/uL Baso # (Auto) 0.01 (0-0.2) K/uL Immature Gran # (Auto) 0.01 (0.00-0.02) K/uL Sodium 140 (136-145) mmol/L Potassium 3.6 (3.5-5.1) mmol/L Chloride 107 (98-107) mmol/L Carbon Dioxide 28 (21-32) mmol/L Anion Gap 5.0 (3-11) BUN 7 D (7-18) mg/dl Creatinine 0.66 (0.6-1.2) mg/dl Est Cr Clr Drug Dosing 75.3 ml/min Est GFR ( Amer) 109.0 Est GFR (Non-Af Amer) 94.0 BUN/Creatinine Ratio 10.8 (10-20) Glucose 104 H (70-99) mg/dl Calcium 8.6 (8.5-10.1) mg/dl Magnesium 1.7 L (1.8-2.4) mg/dl PG Care Time/CCT Total # of Minutes Spent Total Time Spent with Patient: Total time spent is greater than 50% in coordination of care (as documented) at patient's floor/unit and/or counseling patient: Coding Level of Care Code 48305 Subseq Hosp Care Lvl 2 Diagnoses Small bowel obstruction K56.609 Ovarian cancer C56.9 Smoking greater than 30 pack years F17.210 Anxiety F41.9 SVT (supraventricular tachycardia) I47.1 Pulmonary nodules R91.8 Encounter for screening for COVID-19 Z11.52 Chest pain R07.9 DVT prophylaxis Z29.9
[2020-11-26 09:41] LABS: Basophils # (auto) 0.01 K/uL (0-0.2); Basophils % (auto) 0.2 %; Eosinophils # (auto) 0.06 K/uL (0-0.5); Eosinophils % (auto) 1.1 %; Hematocrit (blood only) 32.4 % (37-47); Hemoglobin 10.8 g/dL (12.0-16.0); Immature Granulocytes # (auto) 0.01 K/uL (0.00-0.02); Immature Granulocytes % (auto) 0.2 %; Lymphocytes # (auto) 1.69 K/uL (1.2-3.4); Lymphocytes % (auto) 30.6 %; Mean Corpuscular Hemoglobin 33.9 pg (25-34); Mean Corpuscular Hgb Conc 33.3 g/dL (32-36); Mean Corpuscular Volume 101.6 fL (80-100); Mean Platelet Volume 8.9 fL (7.4-10.4); Monocytes % (auto) 5.4 %; Neutrophils # (auto) 3.45 K/uL (1.4-6.5); Neutrophils % (auto) 62.5 %; Platelet Count 286 K/uL (130-400); RDW Coefficient of Variation 13.9 % (11.5-14.5); RDW Standard Deviation 51.3 fL (36.4-46.3); Red Blood Count 3.19 M/uL (4.2-5.4); White Blood Count 5.52 K/uL (4.8-10.8)
[2020-11-26 10:05] LABS: BUN Creatinine Ratio 10.8 (10-20); Calcium 8.6 mg/dl (8.5-10.1); Creatinine Clr Calc Pharmacy 75.3 ml/min; Magnesium 1.7 mg/dl (1.8-2.4); Potassium 3.6 mmol/L (3.5-5.1)
[2020-11-26] MEDS: MAGNESIUM SULFATE / D5W 1 GM/100 ML BAG IV SCH ×2 (11:27→12:24)
--- NOTE | 2020-11-26 18:24 | XRay Report ---
KUB CLINICAL HISTORY: rule out obstruction COMPARISON STUDY: CT of the abdomen and pelvis November 24, 2020. KUB November 25, 2020. FINDINGS: Oral contrast from prior CT is now within the colon and rectum. Incidental note is made of cholecystectomy clips. Although sensitivity is diminished on this supine exam, there is no evidence f or free air. Mild small bowel dilatation persists. IMPRESSION: 1. Persistent mild small bowel dilatation. This favors a low-grade partial small bowel obstruction. 2. Oral contrast from prior CT now within the colon and rectum. Therefore, no evidence for a high-gra de small bowel obstruction. ACT 112: Negative or not required by law. Electronically signed by: Rivera Jimenez M.D. 11/26/2020 6:23 PM
[2020-11-26] MEDS ORDERED: bisacodyL 10 MG SUPP PR ONE (18:54)
[2020-11-27] MEDS: SODIUM CHLORIDE 0.9% 1000ML 1,000 ML IV SCH (04:53)
[2020-11-27] MEDS: HYDROmorphone INJ 0.5 MG/0.5 ML SYR IV PRN (04:53)
[2020-11-27 06:19] LABS: Hematocrit (blood only) 31.7 % (37-47); Hemoglobin 10.5 g/dL (12.0-16.0); Mean Corpuscular Hemoglobin 33.4 pg (25-34); Mean Corpuscular Hgb Conc 33.1 g/dL (32-36); Mean Platelet Volume 9.3 fL (7.4-10.4); Platelet Count 300 K/uL (130-400); RDW Coefficient of Variation 13.9 % (11.5-14.5); RDW Standard Deviation 50.5 fL (36.4-46.3); Red Blood Count 3.14 M/uL (4.2-5.4)
[2020-11-27 06:51] LABS: BUN Creatinine Ratio 11.6 (10-20); Creatinine Clr Calc Pharmacy 85.7 ml/min; Est GFR (African American) 113.7; Est GFR (Non-African American) 98.1; Magnesium 1.9 mg/dl (1.8-2.4); Potassium 3.7 mmol/L (3.5-5.1)
--- NOTE | 2020-11-27 08:04 | Hospitalist Progress Note ---
Date of Service November 27, 2020 Assessment & Plan Admission and Anticipated Discharge Date Admission Date: November 24, 2020 Results & Data Results & Data ([facility]) Vital Signs (Past 12 Hours) Vital Signs Temp Pulse Resp BP Pulse Ox 11/27/20 07:05 36.5 C 75 18 124/69 95 11/26/20 23:02 36.8 C 70 16 121/69 95
[2020-11-27 08:48] LABS: Folate (Folic Acid) > 20.00 ng/ml (>5.38); Vitamin B12 601 pg/ml (193-986)
[2020-11-27] MEDS: ENOXAPARIN INJ 40 MG/0.4 ML SYR SQ SCH (09:08)
[2020-11-27] MEDS: NICOTINE 7 MG/24 HR TDSY TD SCH (09:08)
[2020-11-27] MEDS: dilTIAZem ER 180 MG CAPCR PO SCH (09:08)
--- NOTE | 2020-11-27 09:28 | Surgery Progress Note ---
Date of Service November 27, 2020 Assessment & Plan (1) SBO (small bowel obstruction): Patient does have partial small bowel obstruction is having no emesis I suspect this is from tumor recurrence especially in the pelvis There is no easy solution and then we do not plan on performing any surgery in this hospital At some point she needs to be evaluated by her MANAGER DISCOVERY surgeon and his associates at [facility] in [place] I suspect that this will continue to occur and any surgical intervention will be difficult As long as the patient can take some liquid nutrition I do not have a problem with her being discharged from a surgical standpoint But again I do feel she needs follow-up with her oncologic surgeon Admission and Anticipated Discharge Date Admission Date: November 24, 2020 Subjective Patient was tolerating some full liquids but apparently then made n.p.o. because she is having pain She has had no emesis Physical Exam Physical Exam: Patient does have mild to moderate distention Constitutional: well developed; no acute distress Eyes: + anicteric sclerae Respiratory: normal respiratory effort; no respiratory distress Cardiovascular: Rate/Rhythm: regular rate Musculoskeletal: Head/Neck/Chest: head atraumatic Skin: no rashes, warm and dry Neurologic: awake Psychiatric: Orientation: alert Results & Data ([facility]) Vital Signs (Past 12 Hours) Vital Signs Temp Pulse Resp BP Pulse Ox 11/27/20 07:05 36.5 C 75 18 124/69 95 11/26/20 23:02 36.8 C 70 16 121/69 95 PG Care Time/CCT Total # of Minutes Spent Total Time Spent with Patient: Total time spent is greater than 50% in coordination of care (as documented) at patient's floor/unit and/or counseling patient: Coding Level of Care Code 13024 Inpt Consult Level 3 Diagnoses SBO (small bowel obstruction) K56.609
--- NOTE | 2020-11-27 15:27 | Discharge Summary ---
Date of Service November 27, 2020 Admission HPI Per Admitting Provider Jo Ann Thornton is 65 y/o F w/ hx of ovarian cancer (s/p debulking, DENISSE, chemo) w/ peritoneal carcinomatosis, adhesions, recurrent SBO, and SVT who presents w/ worsening and increasing frequency of intermittent crampy upper abdominal pain since 11/20/20. The pain comes in waves, lasting 2-3 minutes and are 5-20 minutes apart, and moves towards periumbilical area. Pain was severe prior to ED arrival and currently is milder after IV morphine and dilaudid. She has had several small BMs this week and a larger BM this morning w/ no relief of the abdominal pain. Last flatus was this morning. She has not taken any medications for her symptoms. Has been eating normally, last meal dinner of 11/23/20. Her last admission for SBO was 10/09/21-10/12/21, treated conservatively and w/ NG tube decompression. ED course morphine sulfate IV 4 mg x2. dilaudid IV 0.5mg x1. Nss 1L bolus. normal lactate and lipase. no leukocytosis. CT abd shows partial SBO. Admission Exam Per Admitting Provider General: Grossly A&O. NAD. Uncomfortable appearing. HEENT: Atraumatic, normocephalic. EOMI Pulm: CTAB. -wheezes, -rales, -rhonchi. No respiratory distress. faint RLL exp low pitch Cardiac: RRR, -mrg. Radial pulses intact and symmetrical. no le edema. Abdominal: quieter bowel sounds on right half of abdomen, normal in left abdomen. mildly distended. TTP worst at LUQ, some at LLQ. Soft. No rebound. Some voluntary guarding initially, resolved on re examination 1 minute later. Musculoskeletal: No midline spinal TTP. Back: No CVA TTP. Integumentary: No erythema surrounding R upper chest wall port site. Principal Diagnosis sbo Discharge Exam Constitutional WD/WN, vitals as above Eyes + anicteric sclerae ENMT Ears: no hearing impairment and no external ear abnormality Neck trachea midline, no thyromegaly Respiratory normal respiratory effort; no respiratory distress Auscultation: lungs clear to auscultation bilaterally; no crackles, no rhonchi and no wheezes Cardiovascular RRR, no murmur, no edema Gastrointestinal (Abdomen) Inspection/Auscultation: normal bowel sounds; + abdomen abnormal to inspection (Incisional scars from previous surgeries noted) and abdomen not distended Percussion/Palpation: + abdomen tender (mild TTP in mid R abdomen ), abdomen soft and + abdominal mass (~5x3cm mid R abdomen ); no guarding Musculoskeletal Head/Neck/Chest: normocephalic and head atraumatic Extremities: extremities normal to inspection; no cyanosis and no clubbing Skin no rashes, warm and dry Neurologic moves all extremities and awake; no focal motor deficits Psychiatric A+Ox3, euthymic affect Lymphatic no lymphedema Discharge Data Allergies Allergy/AdvReac Type Severity Reaction Status Date / Time cashew nut Allergy Severe ANAPHYLAXIS Verified 11/24/20 15:22 pecan nut Allergy Severe ANAPHYLAXIS Verified 11/24/20 15:22 walnut Allergy Severe ANAPHYLAXIS Verified 11/24/20 15:22 Beef Containing Products Allergy Intermediate itch hives Verified 11/24/20 15:22 milk Allergy Intermediate HIVES Verified 11/24/20 15:22 corn Allergy Mild itch Verified 11/24/20 15:22 shellfish derived Allergy Mild TESTED Verified 11/24/20 15:22 POSTITIVE ON SCRATCH TEST tomato Allergy Mild TESTED Verified 11/24/20 15:22 POSITIVE ON SCRATCH TEST hazelnut Allergy Unknown unknown Verified 11/24/20 15:22 per testing Histamine H2 Inhibitors Allergy Unknown unknown Verified 11/24/20 15:22 per tesing nut - unspecified Allergy Unknown unknown Verified 11/24/20 15:22 per testing peas Allergy Unknown unknown Verified 11/24/20 15:22 per testing pistachio nut Allergy Unknown unknown Verified 11/24/20 15:22 per testing scallops Allergy Unknown unknown Verified 11/24/20 15:22 per testing shrimp Allergy Unknown unknown Verified 11/24/20 15:22 per testing chicken derived Allergy Verified 11/24/20 15:22 wheat Allergy Verified 11/24/20 15:22 Grain Allergy Unknown unknown Uncoded 11/24/20 15:22 per testing Consultations 11/24/20 17:22 ED Decision to Admit Stat 11/24/20 21:13 Consult General Surgery Routine Ordered Studies 11/24/20 12:41 CT abd pelvis oral and IV con Stat Hospital Course (1) SBO (small bowel obstruction): Patient is a 65 year old female with PMHx Metastatic Stage IIIC ovarian serous adenocarcinoma s/p hysterectomy, BSO, and debulking of tumor, anxiety, and SVT that presented initially for abdominal pain found to be a partial small bowel obstruction. SBO -CTA consistent with partial small bowel obstruction on admission -Follow up KUBs showing progressive improvement of the SBO -General surgery consulted - recommended conservative management -No plans for surgery during this admission per Surgery team. -Patient passing gas and with BMs -Able to tolerate a full liquid diet and scrambled eggs -Patient safe for discharge on full liquid diet and close follow up with her Breakdown Worker-Onc surgeon as her SBO is likely secondary to her cancer -Recommended patient continue to consume at minimum a 1500 calorie diet after discharge -Recommended patient follow up with her Breakdown Worker-Onc surgeon as above. Ovarian Cancer -Likely the cause of her current SBO -follows Dr. Emile Madrigal at [facility] and locally with Ana Maria Hoyt -known metastatic Stage IIIC ovarian serous adenocarcinoma. S/P hysterectomy, BSO and debulking of tumor 08/05/[address] Carnes. Subsequently received 6 cycles of chemotherapy (Taxol and carboplatin). completed 11/2019 -per patient, 09/2020 started 2nd round of chemo w/ carboplatin and doxorubicin and recently received 2nd dose around mid October 2020 continue outpatient follow up Anxiety -Continued patients home PRN Buspar SVT -Continued patients home Diltiazem Total Time Total Time Spent Total Time Spent (In Minutes): <30 Discharge Plan Discharge Items Patient Disposition: Home - Self-Care Reason For Visit: PSBO Discharge Diagnosis: Partial Small Bowel Obstruction Activity: Per Instructions section Non-emergency contact: Primary Care Provider and Oncologist Call non-emergency contact if: your symptoms worsen, your pain is not controlled and your pain is worsening Follow-up/Referrals: Jonah Shannon MD [Primary Care Provider] - Diet: Full liquid Diet Comment: May try a tablespoon of mineral oil or olive oil 2-3 times per week Addtl Attending Provider Instructions: Ms. Thornton, It was our pleasure caring for you at [facility] from 11/24 - 11/27/2020 for your partial small bowel obstruction. Small bowel obstructions typically occur whenever a portion of the bowel either becomes "blocked" or "kinked" leading to difficulty in passing solids or liquids in your bowel. We believe this obstruction was likely due to your history of ovarian cancer and history of abdominal surgeries leading to adhesions. Please contact your Oncologic surgeon in regards to setting up follow up. Please see below for further instructions: -Please schedule for follow up with your Oncologic Surgeon within the next 2-3 days -Please follow a full liquid diet (soups, ice cream, jello, etc) until you are seen, you want to aim for a goal of 1500 calories daily, but more if possible. -You had asked about a local Drum Drier Operator, Dr. Rogers at [facility] office can be reached at [phone] -Please continue your home medications otherwise as prescribed. Pending Studies at Discharge: No Stand-Alone Forms: My [facility], Smoking Cessation Medications and DC Order Prescriptions: Continued cholecalciferol (vitamin D3) 25 mcg (1,000 unit) capsule 2,000 unit PO QAM RF: 0 buspirone 7.5 mg tablet 7.5 mg PO TID PRN (Reason: anxiety) Qty: 45 RF: 2 ascorbic acid (vitamin C) [Vitamin C] 1,000 mg Tablet 1,000 mg PO QAM RF: 0 epinephrine [EpiPen] 0.3 mg/0.3 mL Auto-Injector 0.3 mg IM Q3H PRN (Reason: ALLERGIES) RF: 0 prochlorperazine maleate 10 mg tablet 10 mg PO UD PRN (Reason: Nausea) RF: 0 multivitamin Tablet 1 tab PO QAM RF: 0 diltiazem HCl 180 mg capsule,extended release 24 hr 180 mg PO QAM RF: 0 Chemo Infusions 0 mg IV Q4WK RF: 0 Discharge Orders: Discharge Order (Routine); Ordered 11/27/20 Ordered By: Shon Ramirez Admission Data Admit Date/Time: 11/24/20 18:55 Attending Provider: Kelechi Ward Admit Provider: Pierre Hernandez Primary Care Provider: Jonah Shannon Other Providers: Pierre Hernandez ; Hung Kraft Other Interventions: Discharge Summary Assessment (RN) Last Done: 11/27/20 15:41 Supervising Physician Co-Signing Physician Notes I personally examined the patient and verified all cassidy points of history and exam, discussed case, and agree with decision making with Dr Ramirez. feeling better, able to eat enough that she thinks she'll do OK at home. will f/u w oncology in [place] discussed calorie needs/goals discussed that with her allergies being mostly skin testing rather than symptoms, but also that she's had anaphylaxis before - would be reasonable to f/u w allergy to reassess SBO -likely peritoneal tumor related -improved to where nutritional intake is possible, discussed nutrition goals -stable for home close outpt f/u / oncology f/u -answered all questions to the best of my ability otherwise as above Resident Activity Tracking Resident Involvement: Resident Care Provided Care Provided: Adult Hospital Medicine
--- NOTE | 2020-11-27 16:14 | Billing Data ---
Date of Service November 27, 2020 Coding Level of Care Code D/C Day Management <30 mins
== END 2020-11-27 16:30 | disposition home or self-care (01) | DRG 389 ==
LOC: ED 11:59 → SUATTDRO 18:55 → 3W 18:55

== ENCOUNTER 2021-02-12 19:56 | Observation (INO) ==
[2021-02-12] MEDS ORDERED: SODIUM CHLORIDE 0.9% 500 ML IV STA (20:32)
[2021-02-12] MEDS ORDERED: ONDANSETRON INJ 2 MG/ML 2 ML VIAL IV STA (20:38)
[2021-02-12] MEDS ORDERED: fentaNYL citrate 100 MCG/2 ML VIAL IV STA ×2 (20:38→22:28)
--- NOTE | 2021-02-12 20:42 | Emergency Department Note ---
Impression & Plan Abdominal pain, Nausea & vomiting, Sensation of chest pressure ED Provider Note Provider: Michele Galvan MD DATE OF SERVICE: 02/12/2021 CHIEF COMPLAINT: Abdominal pain, nausea, chest pressure HISTORY OF PRESENT ILLNESS: Patient is a 65-year-old female with a past medical history including carcinomatosis, ileostomy, SBO, cholecystectomy, appendectomy, chemotherapy, ovarian cancer, and SVT presenting here today reporting over the past 48 hours has developed onset of some abdominal discomfort. States she is began to notice some decreased output from her ostomy which is still pain. Denies any blood from this. This evening attempt made a super dinner and then became quite nauseous and had a small amount of vomitus. Patient reports she has significant diffuse abdominal tenderness and has some pressure into her lower mid chest which she feels like food is backing up. She denies significant shortness of breath at this time or fever but does report some chills. Patient states she is currently on treatment with chemotherapy given her history of cancer and follows in [place]. Patient states feels quite similar to her prior episodes of small bowel obstructions and thus presents here for further care. Patient does have a port that she receives daily fluid boluses and due to high output usually from her ileostomy. REVIEW OF SYSTEMS: A total of 10 review of systems was obtained and negative except as stated above in the HPI. PAST MEDICAL HISTORY: As noted above MEDICATIONS: Reviewed home medication list SOCIAL HISTORY: , lives at home PHYSICAL EXAM: GENERAL: alert and oriented seated on stretcher appears fatigued Head: normocephalic and atraumatic EYES: No injection, discharge or icterus. NECK: Trachea midline. LUNGS: Airway patent. No retractions. Breath sounds clear . HEART: Regular rate and rhythm. No chest wall tenderness with a right upper chest wall port ABDOMEN: Soft with some diffuse tenderness in the left and right lower abdominal ostomies in place. SKIN: Acyanotic, warm, dry, without rashes EXTREMITIES: Without swelling, tenderness or deformity NEUROLOGICAL: No focal deficits. No aphasia. No facial droop or slurred speech. EK bpm normal sinus rhythm. No PVC or PAC. No acute ST segment elevation or depression. Normal QTC. CONTINUOUS CARDIAC MONITORING: was ordered and showed a heart rate of 80s to 90s bpm in normal sinus rhythm Patient's laboratory studies and imaging reviewed. Differential includes Appendicitis, infections, diverticulitis, UTI, obstruction, mesenteric ischemia, aortic pathology, inflammatory bowel disease, renal colic, PUD, pancreatitis, biliary pathology, hernia, volvulus, constipation, as well as other pathologies. IMPRESSION/MEDICAL DECISION MAKING: Patient presents her complaining of abdominal pain with decreased ostomy output as well as some nausea and slight vomiting this evening. Reports some chills but no fever. Or some chest pressure but EKG without significant changes. Troponin was sent but lower suspicion this is ACS. I concern for intra- abdominal process such as small bowel obstruction recurrence. Given some small amount of fluid, Zofran, and fentanyl to help with her pain. No fevers reported and basic blood work was sent. Chest x-ray without significant abnormality or pneumonia noted free air under the diaphragm per radiology. Slight leukopenia noted with some slight anemia today. No significant electrolyte abnormality noted signs of renal dysfunction. Troponin is undetectable and with the EKG I doubt this is acutely cardiac. No evidence of acute hepatitis or pancreatitis based on lab studies. Influenza and Covid testing was negative. Patient had transient improvement with some fentanyl here. CT scan of the abdomen pelvis was obtained preliminary report as below that is not significantly suggestive of small bowel obstruction per their report. New fluid collection is noted likely related to her cancer as she is not having significant infectious symptoms, elevated lactate, elevated white blood cell count, or evaluate lipase convincing for pancreatic collection. There are some mild diffuse stranding noted by the report again likely related to metastatic disease. Discussed with the patient these findings. Her nausea is resolved though she states the fentanyl is wearing off. Given some IV hydromorphone for pain control. Discussed the fluid collections and CT report with her from stat read. She is aware of NG tube and declines at this time. The patient would likely benefit from bowel rest as well as IV hydration during this time to hopefully allow her abdominal symptoms to improve. Discussed with her that our radiologist will over read the CT in the morning. Do not feel she requires an acute surgical intervention at this time and does not appear septic. Will discuss with the hospitalist further monitoring here. DIAGNOSIS: Abdominal pain, nausea and vomiting DISPOSITION: Hospitalist will evaluate Patient was agreeable with this plan. Preliminary Findings Only See Final Report For Complete Findings CT ABDOMEN & PELVIS With Contrast: Prior study 01/04/2021 New small left pleural effusion. Mild bibasilar atelectasis. Marked peritoneal carcinomatosis in the abdomen and pelvis, similar although increased since the prior. New large lesser sac fluid collection between the stomach and pancreas. 6 x 13 x 14 cm. Compresses the stomach anteriorly. May relate to metastatic disease. DDX includes abscess/peripancreatic fluid collection. Overall mild stranding within the mesentery and retroperitoneal spaces. Similar/mildly increased. Likely relates to metastatic disease. Bilateral lower quadrant ostomies as on the prior. Dense residual contrast within parts of the collapsed colon. Similar to prior. Multiple mildly thickened small bowel loops throughout the abdomen. May reflect enteritis. No significant dilation to suggest bowel obstruction at this time. Retroperitoneal adenopathy Cholecystectomy. Degenerative changes of the spine. Anterolisthesis of L3 on 4 and L4 on L5. Radiologist: Guerita Don M.D. 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 Small bowel obstruction SVT (supraventricular tachycardia) Symptomatic cholelithiasis Surgical History H/O lumpectomy left breast--benign History of colonoscopy History of hysterectomy for cancer hyster, bso, staging 3 C ov ca History of laparoscopy OVARIAN CYST REMOVED History of ovarian cystectomy History of tooth extraction some upper and lower teeth History of vascular access device right chest wall--[place] Hx laparoscopic cholecystectomy Hx laparoscopic cholecystectomy Dr. Rajesh Kraft on 05/03/19 Hx of foot surgery BILATERAL--hardware in place S/P dilation and curettage Family History Unknown Osteoporosis Father Hypertension Hyperlipidemia Hx of malignant mesothelioma Lung cancer Mother Hyperlipidemia Hypertension [place] disease Breast cancer CKD (chronic kidney disease) Grandfather Renal failure Brother Congenital heart disease Gluten intolerance Grandmother (Maternal) Occlusion of intestine or colon Denies family history of Ovarian cancer Prostate cancer Colorectal cancer Social History Smoking Status: Current every day smoker Tobacco Type: Cigarettes Cigarettes Per Day: 10; Second Hand Exposure: Yes; Hx Alcohol Use: No Hx Substance Use: No Preferred Language: Greek Communication Ability: Effective Visual Impairment: No Limitations Hearing Ability: Normal [employer] Consultant Required: No Beliefs That Will Affect Care: None marital status: Current Living Situation: Spouse current occupational status: employed Feels Safe at Home: Yes Childhood Exposure to Second-Hand Smoke: Yes Dental Care, Regularly: Yes Physical Activity Frequency: Daily Seatbelt Use: always Sunscreen Use: No Assistive Devices: Glasses Allergies Allergies Allergy/AdvReac Type Severity Reaction Status Date / Time cashew nut Allergy Severe ANAPHYLAXIS Verified 01/12/21 11:32 pecan nut Allergy Severe ANAPHYLAXIS Verified 01/12/21 11:32 walnut Allergy Severe ANAPHYLAXIS Verified 01/12/21 11:32 Beef Containing Products Allergy Intermediate itch hives Verified 01/12/21 11:32 milk Allergy Intermediate HIVES Verified 01/12/21 11:32 corn Allergy Mild itch Verified 01/12/21 11:32 shellfish derived Allergy Mild TESTED Verified 01/12/21 11:32 POSTITIVE ON SCRATCH TEST tomato Allergy Mild TESTED Verified 01/12/21 11:32 POSITIVE ON SCRATCH TEST chicken derived Allergy Unknown Unknown Verified 01/12/21 11:32 gluten Allergy Unknown Unknown Verified 01/12/21 11:32 hazelnut Allergy Unknown unknown Verified 01/12/21 11:32 per testing Histamine H2 Inhibitors Allergy Unknown unknown Verified 01/12/21 11:32 per tesing nut - unspecified Allergy Unknown unknown Verified 01/12/21 11:32 per testing peas Allergy Unknown unknown Verified 01/12/21 11:32 per testing pistachio nut Allergy Unknown unknown Verified 01/12/21 11:32 per testing scallops Allergy Unknown unknown Verified 01/12/21 11:32 per testing shrimp Allergy Unknown unknown Verified 01/12/21 11:32 per testing wheat Allergy Unknown Unknown Verified 01/12/21 11:32 Home Meds Home Medications Medication Instructions Recorded Confirmed ascorbic acid (vitamin C) [Vitamin 1,000 mg PO QAM 04/15/19 02/12/21 C] epinephrine [EpiPen] 0.3 mg IM DIRECTED PRN 04/15/19 02/12/21 One Daily For Women 1 tab PO DAILY 12/03/20 02/12/21 buspirone 7.5 mg PO TID PRN 12/03/20 02/12/21 cholecalciferol (vitamin D3) 100 mcg PO DAILY 12/03/20 02/12/21 [Vitamin D3] psyllium husk (with sugar) 3.4 1 ea PO BID PRN ea 01/12/21 02/12/21 gram oral powder packet Previous Rx's Medication Instructions Recorded diltiazem HCl [Cardizem CD] 120 mg PO DAILY #30 cap 01/07/21 diphenoxylate-atropine 2.5 5 ml PO Q8H PRN #60 ml 01/12/21 mg-0.025 mg/5 mL oral liquid Results & Data (ED) Vital Signs Vital Signs - 24 hr 02/12/21 19:57 02/12/21 20:04 02/12/21 20:22 Temperature 36.8 C Temperature Source Temporal Artery Scan Pulse Rate 98 H 86 Pulse Rate from SpO2 Sensor 86 Pulse Rhythm Regular Respiratory Rate 18 18 Respiratory Effort / Characteristics Non-Labored Respiratory Depth Normal Blood Pressure 106/68 125/71 Blood Pressure Mean 80 89 Pulse Oximetry 98 98 98 Oxygen Delivery Method Room Air Room Air Room Air Sepsis Recent Fever Within 48 Hours No Sepsis New/Unexplained Change in Mental Status N/A Sepsis Action Taken by Nursing No Action Required 02/12/21 21:07 02/12/21 21:30 02/12/21 22:00 Temperature Temperature Source Pulse Rate 91 H 85 84 Pulse Rate from SpO2 Sensor 91 H 86 85 Pulse Rhythm Respiratory Rate 16 17 19 Respiratory Effort / Characteristics Respiratory Depth Blood Pressure 117/63 115/61 115/63 Blood Pressure Mean 81 79 80 Pulse Oximetry 97 99 100 Oxygen Delivery Method Room Air Room Air Room Air Sepsis Recent Fever Within 48 Hours Sepsis New/Unexplained Change in Mental Status Sepsis Action Taken by Nursing 02/12/21 22:39 02/12/21 23:00 02/13/21 00:26 Temperature Temperature Source Pulse Rate 87 89 Pulse Rate from SpO2 Sensor 88 91 H 89 Pulse Rhythm Respiratory Rate 17 17 Respiratory Effort / Characteristics Respiratory Depth Blood Pressure 115/62 119/65 132/70 Blood Pressure Mean 79 83 90 Pulse Oximetry 100 98 99 Oxygen Delivery Method Room Air Room Air Room Air Sepsis Recent Fever Within 48 Hours Sepsis New/Unexplained Change in Mental Status Sepsis Action Taken by Nursing 02/13/21 00:30 Temperature Temperature Source Pulse Rate 86 Pulse Rate from SpO2 Sensor 86 Pulse Rhythm Respiratory Rate 17 Respiratory Effort / Characteristics Respiratory Depth Blood Pressure 125/72 Blood Pressure Mean 89 Pulse Oximetry 98 Oxygen Delivery Method Room Air Sepsis Recent Fever Within 48 Hours Sepsis New/Unexplained Change in Mental Status Sepsis Action Taken by Nursing Laboratory Data Result diagrams: 02/12/21 21:06 02/12/21 21:06 Lab Results 02/12/21 02/12/21 02/12/21 Range/Units 21:06 21:06 21:06 WBC 3.97 L (4.8-10.8) K/uL RBC 2.92 L (4.2-5.4) M/uL Hgb 9.0 L (12.0-16.0) g/dL Hct 27.2 L (37-47) % MCV 93.2 (80-100) fL MCH 30.8 (25-34) pg MCHC 33.1 (32-36) g/dL RDW Std Deviation 56.0 H (36.4-46.3) fL RDW Coeff of Agnes 16.4 H (11.5-14.5) % Plt Count 191 (130-400) K/uL MPV 9.5 (7.4-10.4) fL Immature Gran % (Auto) 0.0 % Neut % (Auto) 58.8 % Lymph % (Auto) 27.5 % [place] % (Auto) 12.1 % Eos % (Auto) 1.3 % Baso % (Auto) 0.3 % Neut # (Auto) 2.34 (1.4-6.5) K/uL Lymph # (Auto) 1.09 L (1.2-3.4) K/uL [place] # (Auto) 0.48 (0.11-0.59) K/uL Eos # (Auto) 0.05 (0-0.5) K/uL Baso # (Auto) 0.01 (0-0.2) K/uL Immature Gran # (Auto) 0.00 (0.00-0.02) K/uL PT 10.6 (9.0-12.0) Seconds INR 1.0 (0.9-1.1) Sodium 135 L (136-145) mmol/L Potassium 3.9 (3.5-5.1) mmol/L Chloride 102 (98-107) mmol/L Carbon Dioxide 25 (21-32) mmol/L Anion Gap 7.0 (3-11) BUN 18 (7-18) mg/dl Creatinine 0.86 (0.6-1.2) mg/dl Est Cr Clr Drug Dosing 54.3 ml/min Est GFR ( Amer) 83.3 Est GFR (Non-Af Amer) 71.9 BUN/Creatinine Ratio 20.4 H (10-20) Glucose 115 H (70-99) mg/dl Lactate (0.4-2.0) mmol/L Calcium 9.1 (8.5-10.1) mg/dl Total Bilirubin 0.5 (0.2-1) mg/dl AST 20 (15-37) U/L ALT 36 (12-78) U/L Alkaline Phosphatase 179 H (45-117) U/L Troponin I < 0.015 (0-0.045) ng/ml Total Protein 6.4 (6.4-8.2) gm/dl Albumin 2.7 L (3.4-5.0) gm/dl Globulin 3.7 (2.5-4.0) gm/dl Albumin/Globulin Ratio 0.7 L (0.9-2) Lipase 186 (73-393) U/L Urine Color Urine Appearance (Clear) Urine pH (4.5-7.5) Ur Specific [place] (1.000-1.030) Urine Protein (Negative) Urine Glucose (UA) (Negative) Urine Ketones (Negative) Urine Blood (Negative) Urine Nitrite (Negative) Urine Bilirubin (Negative) Urine Urobilinogen (Negative) Ur Leukocyte Esterase (Negative) Urine WBC (Auto) (0-5) /hpf Urine RBC (Auto) (0-4) /hpf U Hyaline Cast (Auto) (0-5) /lpf U Epithel Cells (Auto) (0-5) /lpf Urine Bacteria (Auto) (Negative) COVID-19 Eval Order SARS-CoV-2 (PCR) (Negative) Influenza Type A (PCR) (Neg) Influenza Type B (PCR) (Neg) RSV (RT-PCR) (Neg) 02/12/21 02/12/21 02/12/21 Range/Units 21:06 21:06 21:48 WBC (4.8-10.8) K/uL RBC (4.2-5.4) M/uL Hgb (12.0-16.0) g/dL Hct (37-47) % MCV (80-100) fL MCH (25-34) pg MCHC (32-36) g/dL RDW Std Deviation (36.4-46.3) fL RDW Coeff of Agnes (11.5-14.5) % Plt Count (130-400) K/uL MPV (7.4-10.4) fL Immature Gran % (Auto) % Neut % (Auto) % Lymph % (Auto) % [place] % (Auto) % Eos % (Auto) % Baso % (Auto) % Neut # (Auto) (1.4-6.5) K/uL Lymph # (Auto) (1.2-3.4) K/uL [place] # (Auto) (0.11-0.59) K/uL Eos # (Auto) (0-0.5) K/uL Baso # (Auto) (0-0.2) K/uL Immature Gran # (Auto) (0.00-0.02) K/uL PT (9.0-12.0) Seconds INR (0.9-1.1) Sodium (136-145) mmol/L Potassium (3.5-5.1) mmol/L Chloride (98-107) mmol/L Carbon Dioxide (21-32) mmol/L Anion Gap (3-11) BUN (7-18) mg/dl Creatinine (0.6-1.2) mg/dl Est Cr Clr Drug Dosing ml/min Est GFR ( Amer) Est GFR (Non-Af Amer) BUN/Creatinine Ratio (10-20) Glucose (70-99) mg/dl Lactate 0.8 (0.4-2.0) mmol/L Calcium (8.5-10.1) mg/dl Total Bilirubin (0.2-1) mg/dl AST (15-37) U/L ALT (12-78) U/L Alkaline Phosphatase (45-117) U/L Troponin I (0-0.045) ng/ml Total Protein (6.4-8.2) gm/dl Albumin (3.4-5.0) gm/dl Globulin (2.5-4.0) gm/dl Albumin/Globulin Ratio (0.9-2) Lipase (73-393) U/L Urine Color Urine Appearance (Clear) Urine pH (4.5-7.5) Ur Specific [place] (1.000-1.030) Urine Protein (Negative) Urine Glucose (UA) (Negative) Urine Ketones (Negative) Urine Blood (Negative) Urine Nitrite (Negative) Urine Bilirubin (Negative) Urine Urobilinogen (Negative) Ur Leukocyte Esterase (Negative) Urine WBC (Auto) (0-5) /hpf Urine RBC (Auto) (0-4) /hpf U Hyaline Cast (Auto) (0-5) /lpf U Epithel Cells (Auto) (0-5) /lpf Urine Bacteria (Auto) (Negative) COVID-19 Eval Order CovFluRsv at [facility] SARS-CoV-2 (PCR) NEGATIVE (Negative) Influenza Type A (PCR) Negative (Neg) Influenza Type B (PCR) Negative (Neg) RSV (RT-PCR) Negative (Neg) 02/13/21 Range/Units 00:30 WBC (4.8-10.8) K/uL RBC (4.2-5.4) M/uL Hgb (12.0-16.0) g/dL Hct (37-47) % MCV (80-100) fL MCH (25-34) pg MCHC (32-36) g/dL RDW Std Deviation (36.4-46.3) fL RDW Coeff of Agnes (11.5-14.5) % Plt Count (130-400) K/uL MPV (7.4-10.4) fL Immature Gran % (Auto) % Neut % (Auto) % Lymph % (Auto) % [place] % (Auto) % Eos % (Auto) % Baso % (Auto) % Neut # (Auto) (1.4-6.5) K/uL Lymph # (Auto) (1.2-3.4) K/uL [place] # (Auto) (0.11-0.59) K/uL Eos # (Auto) (0-0.5) K/uL Baso # (Auto) (0-0.2) K/uL Immature Gran # (Auto) (0.00-0.02) K/uL PT (9.0-12.0) Seconds INR (0.9-1.1) Sodium (136-145) mmol/L Potassium (3.5-5.1) mmol/L Chloride (98-107) mmol/L Carbon Dioxide (21-32) mmol/L Anion Gap (3-11) BUN (7-18) mg/dl Creatinine (0.6-1.2) mg/dl Est Cr Clr Drug Dosing ml/min Est GFR ( Amer) Est GFR (Non-Af Amer) BUN/Creatinine Ratio (10-20) Glucose (70-99) mg/dl Lactate (0.4-2.0) mmol/L Calcium (8.5-10.1) mg/dl Total Bilirubin (0.2-1) mg/dl AST (15-37) U/L ALT (12-78) U/L Alkaline Phosphatase (45-117) U/L Troponin I (0-0.045) ng/ml Total Protein (6.4-8.2) gm/dl Albumin (3.4-5.0) gm/dl Globulin (2.5-4.0) gm/dl Albumin/Globulin Ratio (0.9-2) Lipase (73-393) U/L Urine Color Dark Yellow Urine Appearance Clear (Clear) Urine pH 5.5 (4.5-7.5) Ur Specific [place] > 1.045 H (1.000-1.030) Urine Protein Trace H (Negative) Urine Glucose (UA) Negative (Negative) Urine Ketones Negative (Negative) Urine Blood Negative (Negative) Urine Nitrite Negative (Negative) Urine Bilirubin Negative (Negative) Urine Urobilinogen Negative (Negative) Ur Leukocyte Esterase Negative (Negative) Urine WBC (Auto) 1-5 (0-5) /hpf Urine RBC (Auto) 0-4 (0-4) /hpf U Hyaline Cast (Auto) 1-5 (0-5) /lpf U Epithel Cells (Auto) >30 H (0-5) /lpf Urine Bacteria (Auto) Negative (Negative) COVID-19 Eval Order SARS-CoV-2 (PCR) (Negative) Influenza Type A (PCR) (Neg) Influenza Type B (PCR) (Neg) RSV (RT-PCR) (Neg) Administered Medications Discontinued Medications Fentanyl Citrate (Fentanyl Citrate 100 Mcg/2 Ml Vial) 50 mcg IV NOW STA Stop: 02/12/21 20:39 Last Admin: 02/12/21 20:59 Dose: 50 mcg Documented by: [id number] Fentanyl Citrate (Fentanyl Citrate 100 Mcg/2 Ml Vial) 50 mcg IV NOW STA Stop: 02/12/21 22:29 Last Admin: 02/12/21 22:43 Dose: 50 mcg Documented by: [id number] Hydromorphone HCl (Hydromorphone Inj 0.5 Mg/0.5 Ml Syr) 0.5 mg IV NOW STA Stop: 02/13/21 00:44 Last Admin: 02/13/21 00:54 Dose: 0.5 mg Documented by: [id number] Sodium Chloride (Nss) 500 mls @ 999 mls/hr IV .Q31M STA Stop: 02/12/21 21:02 Last Infusion: 02/12/21 21:30 Dose: 0 mls/hr Documented by: [id number] Admin: 02/12/21 20:59 Dose: 999 mls/hr Documented by: [id number] Ioversol (Optiray 320 100ml) 100 ml IV ONCE ONE Stop: 02/12/21 23:42 Last Admin: 02/12/21 23:41 Dose: 83 ml Documented by: [id number] Ondansetron HCl (Ondansetron Inj 2 Mg/Ml 2 Ml Vial) 4 mg IV NOW STA Stop: 02/12/21 20:39 Last Admin: 02/12/21 20:59 Dose: 4 mg Documented by: [id number] Imaging Data Radiologist's Impression: Chest X-Ray 02/12/21 20:43 XR chest 1V portable CLINICAL HISTORY: Abdominal pain. Chest pain. COMPARISON STUDY: Chest CT January 11, 2020. Chest radiograph January 04, 2021. FINDINGS: Right internal jugular [id number] is in place. Incidental note is made of an old right clavicular fracture. There is no pneumothorax or pleural effusion. No consolidation is present. There is no evidence for pulmonary edema. Cardiac size is normal. Mediastinal contours are normal. The appearance of the chest is unchanged. IMPRESSION: No acute cardiopulmonary findings. ACT 112: Negative or not required by law. Electronically signed by: Rivera Jimenez M.D. 02/12/2021 9:02 PM Discharge Plan Visit Data Chief Complaint: Cardiac Assessment Stated Complaint: THINKS SHE HAS BLOCKAGE, CHEST PAIN, ABD PAIN ED Provider: Michele Galvan Discharge Problem: Abdominal pain, Nausea & vomiting, Sensation of chest pressure Forms Stand Alone Forms: [facility] [employer] Prescriptions Prescriptions: No Action Metamucil (with sugar) 3.4 gram powder in packet 1 ea PO BID PRN (Reason: Constipation) RF: 0 diphenoxylate-atropine 2.5-0.025 mg/5 mL liquid 5 ml PO Q8H PRN (Reason: diarrhea) Qty: 60 RF: 2 ascorbic acid (vitamin C) [Vitamin C] 1,000 mg Tablet 1,000 mg PO QAM RF: 0 epinephrine [EpiPen] 0.3 mg/0.3 mL Auto-Injector 0.3 mg IM DIRECTED PRN (Reason: Allergic Reaction) RF: 0 cholecalciferol (vitamin D3) [Vitamin D3] 50 mcg (2,000 unit) Capsule 100 mcg PO DAILY RF: 0 One Daily For Women 18-0.4 mg Tablet 1 tab PO DAILY RF: 0 buspirone 7.5 mg tablet 7.5 mg PO TID PRN (Reason: Anxiety) RF: 0 diltiazem HCl [Cardizem CD] 120 mg capsule,extended release 24hr 120 mg PO DAILY Qty: 30 RF: 0 Discharge Problem: Abdominal pain Qualifiers: Abdominal location: generalized Qualified Code(s): R10.84 - Generalized abdominal pain Nausea & vomiting Qualifiers: Vomiting type: unspecified Vomiting Intractability: non-intractable Qualified Code(s): R11.2 - Nausea with vomiting, unspecified
--- NOTE | 2021-02-12 21:04 | XRay Report ---
XR chest 1V portable CLINICAL HISTORY: Abdominal pain. Chest pain. COMPARISON STUDY: Chest CT January 11, 2020. Chest radiograph January 04, 2021. FINDINGS: Right internal jugular [id number] is in place. Incidental note is made of an old right c lavicular fracture. There is no pneumothorax or pleural effusion. No consolidation is present. There is no evidence for pulmonary edema. Cardiac size is normal. Mediastinal contours are normal. The appe arance of the chest is unchanged. IMPRESSION: No acute cardiopulmonary findings. ACT 112: Negative or not required by law. Electronically signed by: Rivera Jimenez M.D. 02/12/2021 9:02 PM
[2021-02-12 21:23] LABS: Basophils # (auto) 0.01 K/uL (0-0.2); Basophils % (auto) 0.3 %; Eosinophils # (auto) 0.05 K/uL (0-0.5); Eosinophils % (auto) 1.3 %; Hematocrit (blood only) 27.2 % (37-47); Lymphocytes # (auto) 1.09 K/uL (1.2-3.4); Lymphocytes % (auto) 27.5 %; Mean Corpuscular Hemoglobin 30.8 pg (25-34); Mean Corpuscular Hgb Conc 33.1 g/dL (32-36); Mean Corpuscular Volume 93.2 fL (80-100); Mean Platelet Volume 9.5 fL (7.4-10.4); Monocytes # (auto) 0.48 K/uL (0.11-0.59); Monocytes % (auto) 12.1 %; Neutrophils # (auto) 2.34 K/uL (1.4-6.5); Neutrophils % (auto) 58.8 %; Platelet Count 191 K/uL (130-400); RDW Coefficient of Variation 16.4 % (11.5-14.5); Red Blood Count 2.92 M/uL (4.2-5.4); White Blood Count 3.97 K/uL (4.8-10.8)
[2021-02-12 21:32] LABS: Prothrombin Time 10.6 Seconds (9.0-12.0)
[2021-02-12 21:40] LABS: Alanine Aminotransferase 36 U/L (12-78); Albumin Level 2.7 gm/dl (3.4-5.0); Aspartate Aminotransferase 20 U/L (15-37); BUN Creatinine Ratio 20.4 (10-20); Blood Urea Nitrogen 18 mg/dl (7-18); Calcium 9.1 mg/dl (8.5-10.1); Carbon Dioxide 25 mmol/L (21-32); Chloride 102 mmol/L (98-107); Creatinine Clr Calc Pharmacy 54.3 ml/min; Est GFR (African American) 83.3; Est GFR (Non-African American) 71.9; Glucose 115 mg/dl (70-99); Lipase 186 U/L (73-393); Potassium 3.9 mmol/L (3.5-5.1); Sodium 135 mmol/L (136-145)
[2021-02-12 21:45] LABS: Albumin Globulin Ratio 0.7 (0.9-2); Alkaline Phosphatase 179 U/L (45-117); Bilirubin,Total 0.5 mg/dl (0.2-1); Globulin 3.7 gm/dl (2.5-4.0); Total Protein 6.4 gm/dl (6.4-8.2); Troponin I < 0.015 ng/ml (0-0.045)
[2021-02-12 22:06] LABS: Influenza A virus by PCR Negative (Neg); Influenza B virus by PCR Negative (Neg); RSV by PCR Negative (Neg); SARS CoV2 RNA(COVID-19) InHosp NEGATIVE (Negative)
[2021-02-12] MEDS ORDERED: OPTIRAY 320 100ml IV ONE (23:41)
[2021-02-13] MEDS ORDERED: HYDROmorphone INJ 0.5 MG/0.5 ML SYR IV STA (00:43)
[2021-02-13 00:44] LABS: Appearance Urine Clear (Clear); Bacteria Urine Automated Negative (Negative); Bilirubin Urine Negative (Negative); Blood Urine Negative (Negative); Color Urine Dark Yellow; Epithelial Cell Urine Auto >30 /lpf (0-5); Glucose Urine UA Negative (Negative); Ketones Urine Negative (Negative); Leukocyte Esterase Urine Negative (Negative); Nitrite Urine Negative (Negative); Protein Urine Trace (Negative); RBC Urine Automated 0-4 /hpf (0-4); Specific Gravity Urine > 1.045 (1.000-1.030); Urobilinogen Urine Negative (Negative); pH Urine 5.5 (4.5-7.5)
--- NOTE | 2021-02-13 02:04 | History & Physical Report ---
Date of Service February 13, 2021 Assessment & Plan Admission and Anticipated Discharge Date Admission Date: 65 yo F w/ pMHx. of anxiety, high output ileostomy, and ovarian cancer with carcinomatosis s/p ileostomy presenting with chest/abd. pain, nausea, and poor output without obstruction on CT statrad Poor ostomy output, without obstruction seen on imaging although large new fluid collection is seen compressing the stomach CT a/p -- statrad -- w/ small L pleural effusion, peritoneal carcinomatosis and new fluid collection (?abscess vs. fluid)between the stomach and pancreas [id number] wbc 3.97, lactate 0.8; hemodynamically stable continue to monitor and if no improvement consult surgery otherwise conservative management - NPO - IVF - Zofran available Chest/abdomen pain, likely 2/2 cancer troponin negative - Tylenol and Dilaudid available for pain, discussed side effect of opioid medication as slowing motility - K-pad available Normocytic anemia Hgb 9 fluid collection in abdomen could represent hematoma - continue to monitor w/ AM CBC Malnutrition w/ Albumin 2.7 NPO for now, restart diet if clinically improving Anxiety - continue buspirone HTN - continue home diltiazem Code: full Diet: NPO DVT prophylaxis: Lovenox History of Present Illness Chief Complaint: poor ostomy output Primary Care Provider: Jonah Shannon MD Nga Thornton is here for poor ostomy output. She has a history of ovarian cancer and was having problems with obstruction and had a ileostomy placed for this in November. She has had sharp side pains after eating for the last 1-2 weeks. On Friday she was feeling poorly over the day and Friday she was again having pain and stayed in bed all day. Friday she again was unable to get out of bed and vomited, so decided to come to the ER for further evaluation. She has had poor output, although she normally has high output. She did empty her ostomy tonight there was no blood. Her Oncologist is based out of [place] but gets some of her care here in at [facility]. She takes Oxycodone 10 mg at bed normally and Tylenol throughout the day. Her pain was a 7/10 prior to coming to the hospital and was 5/10 after pain medication. She said that she would be okay with her pain being a 5/10. Social: Tobacco 5-6 cigarettes a day (declined a nicotine patch) ETOH: none substance use: none Allergies Allergy/AdvReac Type Severity Reaction Status Date / Time cashew nut Allergy Severe ANAPHYLAXIS Verified 01/12/21 11:32 pecan nut Allergy Severe ANAPHYLAXIS Verified 01/12/21 11:32 walnut Allergy Severe ANAPHYLAXIS Verified 01/12/21 11:32 Beef Containing Products Allergy Intermediate itch hives Verified 01/12/21 11:32 milk Allergy Intermediate HIVES Verified 01/12/21 11:32 corn Allergy Mild itch Verified 01/12/21 11:32 shellfish derived Allergy Mild TESTED Verified 01/12/21 11:32 POSTITIVE ON SCRATCH TEST tomato Allergy Mild TESTED Verified 01/12/21 11:32 POSITIVE ON SCRATCH TEST chicken derived Allergy Unknown Unknown Verified 01/12/21 11:32 gluten Allergy Unknown Unknown Verified 01/12/21 11:32 hazelnut Allergy Unknown unknown Verified 01/12/21 11:32 per testing Histamine H2 Inhibitors Allergy Unknown unknown Verified 01/12/21 11:32 per tesing nut - unspecified Allergy Unknown unknown Verified 01/12/21 11:32 per testing peas Allergy Unknown unknown Verified 01/12/21 11:32 per testing pistachio nut Allergy Unknown unknown Verified 01/12/21 11:32 per testing scallops Allergy Unknown unknown Verified 01/12/21 11:32 per testing shrimp Allergy Unknown unknown Verified 01/12/21 11:32 per testing wheat Allergy Unknown Unknown Verified 01/12/21 11:32 Home Medications Medication Instructions Recorded Confirmed Type ascorbic acid (vitamin C) [Vitamin 1,000 mg PO QAM 04/15/19 02/12/21 History C] epinephrine [EpiPen] 0.3 mg IM DIRECTED PRN 04/15/19 02/12/21 History One Daily For Women 1 tab PO DAILY 12/03/20 02/12/21 History buspirone 7.5 mg PO TID PRN 12/03/20 02/12/21 History cholecalciferol (vitamin D3) 100 mcg PO DAILY 12/03/20 02/12/21 History [Vitamin D3] diltiazem HCl [Cardizem CD] 120 mg PO DAILY #30 cap 01/07/21 02/12/21 Rx diphenoxylate-atropine 2.5 5 ml PO Q8H PRN #60 ml 01/12/21 02/12/21 Rx mg-0.025 mg/5 mL oral liquid psyllium husk (with sugar) 3.4 1 ea PO BID PRN ea 01/12/21 02/12/21 History gram oral powder packet Past Med/Surg History Medical History Adult situational stress disorder YESICA (acute kidney injury) Anxiety Chronic back pain Degenerative cervical disc Gallstone GERD (gastroesophageal reflux disease) Hyperlipidemia Hypertension Macular degeneration, dry Menopause Osteoarthritis Ovarian cancer 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 Small bowel obstruction SVT (supraventricular tachycardia) Symptomatic cholelithiasis Surgical History H/O lumpectomy left breast--benign History of colonoscopy History of hysterectomy for cancer hyster, bso, staging 3 C ov ca History of laparoscopy OVARIAN CYST REMOVED History of ovarian cystectomy History of tooth extraction some upper and lower teeth History of vascular access device right chest wall--Aport Hx laparoscopic cholecystectomy Hx laparoscopic cholecystectomy Dr. Rajesh Kraft on 05/03/19 Hx of foot surgery BILATERAL--hardware in place S/P dilation and curettage Family History Unknown Osteoporosis Father Hypertension Hyperlipidemia Hx of malignant mesothelioma Lung cancer Mother Hyperlipidemia Hypertension [place] disease Breast cancer CKD (chronic kidney disease) Grandfather Renal failure Brother Congenital heart disease Gluten intolerance Grandmother (Maternal) Occlusion of intestine or colon Denies family history of Ovarian cancer Prostate cancer Colorectal cancer Social History Smoking Status: Current every day smoker Tobacco Type: Cigarettes Cigarettes Per Day: 10; Second Hand Exposure: No; Do You Dip or Chew Tobacco: No; Tobacco Cessation Education Requested by Patient: No Hx Alcohol Use: Yes Alcohol type: wine Hx Substance Use: No Preferred Language: Syriac Communication Ability: Effective Visual Impairment: No Limitations Hearing Ability: Normal 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 Required: No Beliefs That Will Affect Care: None marital status: Current Living Situation: Spouse current occupational status: employed Other Information That Helps Us Care for You: No Feels Safe at Home: Yes Safety Concerns: Feels Safe At This Time Childhood Exposure to Second-Hand Smoke: Yes Dental Care, Regularly: Yes Physical Activity Frequency: Daily Seatbelt Use: always Sunscreen Use: No Assistive Devices: None Review of Systems Review of Systems: Constitutional: denies fevers, diaphoresis, night sweats admits chills, nausea, weight loss 20lbs since August Head: denies trauma, LOC, confusion, light headedness, vision changes Neuro: denies syncope, slurring of speech, focal weakness ENT: denies rhinorrhea, stuffiness, sneezing Cardiac: denies leg edema admits chest pain, palpitations Pulm.: denies cough, shortness of breath PI: denies blood in stool admits abdominal pain, poor output : denies frequency, urgency, pain Physical Exam Constitutional: + thin, + frail appearing and + malnourished; no acute distress Eyes: PERRL, conjunctivae normal, anicteric sclerae ENMT: Ears: no hearing impairment Nose: + dry nasal mucous membranes Neck: normal visual inspection Respiratory: normal respiratory effort, lungs clear to auscultation Cardiovascular: RRR, no murmur, no edema Gastrointestinal (Abdomen): - large mass palpated predominantly in the left upper quadrant - increased bowel sounds - tender diffusely Musculoskeletal: no cyanosis or clubbing, extremities motor strength 5/5 Skin: no rashes, warm and dry Neurologic: no focal motor deficits Psychiatric: Orientation: alert Eye Contact: good eye contact Speech: no pressured speech Affect: + depressed affect Results & Data Results & Data ([facility]) Vital Signs (Past 12 Hours) Vital Signs Temp Pulse Resp BP Pulse Ox 02/13/21 01:01 83 21 95 02/13/21 01:00 82 17 101/51 L 95 02/13/21 00:30 86 17 125/72 98 02/13/21 00:26 89 17 132/70 99 02/12/21 23:00 119/65 98 02/12/21 22:39 87 17 115/62 100 02/12/21 22:00 84 19 115/63 100 02/12/21 21:30 85 17 115/61 99 02/12/21 21:07 91 H 16 117/63 97 02/12/21 20:22 86 18 125/71 98 02/12/21 20:04 36.8 C 98 H 18 106/68 98 02/12/21 19:57 98 CBC Results Results Complete Blood Count Results: RBC 2.83 M/uL (4.2-5.4) L 02/13/21 WBC 3.84 K/uL (4.8-10.8) L 02/13/21 Hgb 8.6 g/dL (12.0-16.0) L 02/13/21 Hct 26.7 % (37-47) L 02/13/21 Plt Count 185 K/uL (130-400) 02/13/21 Chemistry (BMP) Results BMP Results: Sodium 136 mmol/L (136-145) 02/13/21 Potassium 3.9 mmol/L (3.5-5.1) 02/13/21 Chloride 104 mmol/L (98-107) 02/13/21 BUN 16 mg/dl (7-18) 02/13/21 Creatinine 0.89 mg/dl (0.6-1.2) 02/13/21 Glucose 90 mg/dl (70-99) 02/13/21 Code Status & VTE Plan VTE Prophylaxis Plan VTE Prophylaxis will be ordered: Yes Supervising Physician Co-Signing Physician Notes Patient seen and examined, chart reviewed, case discussed with Dr Banks and I agree with his assessment and plan as above. Briefly, patient is a 65yo female with ovarian cancer, carcinomatosis, s/p ileostomy presenting with abdominal pain and decreased output. Patient states that her current symptoms feel somewhat like her prior bowel obstructions. On exam she is afebrile, HD stable, NAD Skin - intact, no rash HEEN - NC/AT, PERRL, MMM, Neck supple Heart - +S1/S2, regular, no m/r/g Lungs - CTA Abd - ileostomy with normal appearing stoma, areas of firmness present on abdomen, mildly tender with deep palpation, no rebound/guarding Ext - No edema Labs and images reviewed. No bowel obstruction noted on imaging per STAT-rad read Assessment/Plan: -Observation to medical -NPO, IVF and electrolyte repletion, anti-emetics and pain control as needed -Remainder of plan as above Resident Activity Tracking Resident Involvement: Resident Care Provided Care Provided: Adult [facility]
[2021-02-13] MEDS ORDERED: busPIRone 7.5 MG TAB PO PRN (02:35)
[2021-02-13] MEDS ORDERED: HYDROmorphone INJ 0.5 MG/0.5 ML SYR IV PRN (02:35)
[2021-02-13] MEDS: SODIUM CHLORIDE 0.9% 1000ML 1,000 ML IV SCH ×2 (02:50→15:38)
[2021-02-13] MEDS: ONDANSETRON INJ 2 MG/ML 2 ML VIAL IV SCH ×4 (02:52→19:13)
[2021-02-13] MEDS: HYDROmorphone INJ 0.5 MG/0.5 ML SYR IV PRN ×2 (02:52→07:19)
[2021-02-13] MEDS ORDERED: HEPARIN 100 UNIT/ML 5ML FLUSH FLUSH PRN (03:26)
[2021-02-13] MEDS ORDERED: ACETAMINOPHEN 325 MG TAB PO PRN (04:02)
[2021-02-13 05:59] LABS: Basophils # (auto) 0.01 K/uL (0-0.2); Basophils % (auto) 0.3 %; Eosinophils # (auto) 0.05 K/uL (0-0.5); Eosinophils % (auto) 1.3 %; Hematocrit (blood only) 26.7 % (37-47); Hemoglobin 8.6 g/dL (12.0-16.0); Immature Granulocytes # (auto) 0.01 K/uL (0.00-0.02); Immature Granulocytes % (auto) 0.3 %; Lymphocytes # (auto) 1.34 K/uL (1.2-3.4); Lymphocytes % (auto) 34.9 %; Mean Corpuscular Hemoglobin 30.4 pg (25-34); Mean Corpuscular Hgb Conc 32.2 g/dL (32-36); Mean Corpuscular Volume 94.3 fL (80-100); Mean Platelet Volume 9.2 fL (7.4-10.4); Monocytes # (auto) 0.48 K/uL (0.11-0.59); Monocytes % (auto) 12.5 %; Neutrophils # (auto) 1.95 K/uL (1.4-6.5); Neutrophils % (auto) 50.7 %; Platelet Count 185 K/uL (130-400); RDW Coefficient of Variation 16.4 % (11.5-14.5); Red Blood Count 2.83 M/uL (4.2-5.4); White Blood Count 3.84 K/uL (4.8-10.8)
[2021-02-13 06:37] LABS: BUN Creatinine Ratio 17.7 (10-20); Calcium 8.7 mg/dl (8.5-10.1); Creatinine Clr Calc Pharmacy 52.9 ml/min; Est GFR (African American) 79.9; Potassium 3.9 mmol/L (3.5-5.1)
[2021-02-13] MEDS ORDERED: ENOXAPARIN INJ 40 MG/0.4 ML SYR SQ SCH (08:00)
--- NOTE | 2021-02-13 08:00 | Hospitalist Progress Note ---
Date of Service February 13, 2021 Assessment & Plan Admission and Anticipated Discharge Date Admission Date: February 13, 2021 Results & Data Results & Data ([facility]) Vital Signs (Past 12 Hours) Vital Signs Temp Pulse Pulse Resp BP BP Pulse Ox 02/13/21 07:26 36.5 C 92 H 16 113/71 100 02/13/21 02:30 36.8 C 92 H 18 119/76 96 02/13/21 01:01 83 21 95 02/13/21 01:00 82 17 101/51 L 95 02/13/21 00:30 86 17 125/72 98 02/13/21 00:26 89 17 132/70 99 02/12/21 23:00 119/65 98 02/12/21 22:39 87 17 115/62 100 02/12/21 22:00 84 19 115/63 100 02/12/21 21:30 85 17 115/61 99 02/12/21 21:07 91 H 16 117/63 97 02/12/21 20:22 86 18 125/71 98 02/12/21 20:04 36.8 C 98 H 18 106/68 98 PG Care Time/CCT Total # of Minutes Spent Total Time Spent with Patient: Total time spent is greater than 50% in coordination of care (as documented) at patient's floor/unit and/or counseling patient: Coding
--- NOTE | 2021-02-13 08:06 | CT Scan Report ---
CT abd pelvis IV con only CLINICAL HISTORY: Ovarian carcinoma. Abdominal pain. COMPARISON STUDY: 01/04/2021 TECHNIQUE: Patient was scanned in a dynamic helical fashion during intravenous administration of 83 c c of Optiray 320 A dose lowering technique was utilized adhering to the principles of ALARA. CT DOSE: 270.29 mGy.cm FINDINGS: Lower chest: There is a small left pleural effusion with left basilar atelectasis. Liver: There are multiple serosal surface tumor implants. Hepatic and portal veins appear patent. The re is no ductal dilatation. Gallbladder: Surgically absent Spleen: Normal in size and attenuation. Pancreas: Unremarkable. Adrenal glands: Unremarkable. Kidneys: There is symmetric renal cortical enhancement. The kidneys are normal in size without hydron ephrosis. Bowel: There are bilateral lower quadrant ostomies. There are no transition zones indicate bowel obst ruction. There are areas of bowel wall thickening, likely secondary to metastatic disease although an enteritis could appear similar Peritoneum: There is marked progression in the abdominal pelvic carcinomatosis. There is a 17 cm cyst ic left upper quadrant and mid abdominal collection, loculated ascites versus mucinous tumor. This is compressing the stomach. Vasculature: The abdominal aorta is normal in course and caliber. Adenopathy: There is retroperitoneal lymphadenopathy. Pelvic viscera: The uterus appears surgically absent Skeletal structures: There is mild anterolisthesis of L3 on L4, and L4 on L5. IMPRESSION: 1. Small left pleural effusion 2. No evidence of bowel obstruction. No evidence of free air 3. Significant progression in the abdominal pelvic peritoneal carcinomatosis 4. Interval development of a 17 cm fluid collection in the region of the lesser sac with secondary ga stric compression. This statistically relates to metastatic disease. 5. Retroperitoneal lymphadenopathy 6. Areas of bowel wall thickening, likely secondary to metastatic disease although an enteritis could appear similar ACT 112: Negative or not required by law. Electronically signed by: Johnnie Stevens M.D. 02/13/2021 8:05 AM
[2021-02-13] MEDS ORDERED: dilTIAZem HCL 120 MG CAPCR PO SCH (09:00)
--- NOTE | 2021-02-13 10:16 | Communication Note ---
Date of Service: February 13, 2021 Our services consulted for 17cm fluid collection, carcinomatosis, and question of needing collection drained vs drain placement. In reviewing patient's chart, she has metastatic ovarian cancer with peritoneal carcinomatosis. History of SBO and had recent ostomy placement in [place]. She presented with 1-2 week history of increasing abdominal pain as well as decreased ostomy output. CT scan stat read showed no evidence of bowel obstruction. Morning read of CT scan by our radiologist showing 17 cm fluid collection in lesser sac with secondary compression of stomach which likely represents metastatic disease. In reviewing her CT scan in December, the peritoneal carcinomatosis has progressed since that time. Lactic acid 0.8 and no leukocytosis. Fluid collection likely secondary to peritoneal carcinomatosis. Given extent of carcinomatosis and progression since CT scan in December, would recommend further discussion with oncology team as well as surgeons in [place] and interventional radiology in [place]. Would not recommend surgical intervention here at [facility] given complexity of her metastatic disease and carcinomatosis. She may not requiring IR drainage of this fluid collection if her symptoms improve with conservative measures. However, given the secondary compression on the stomach and size of the fluid collection, would advise discussion with a tertiary center in which IR is present for possible drainage. Discussed recommendations with Hospitalist SHAWN Hylton. Please call with any further questions.
[2021-02-13] MEDS ORDERED: MoRPHine SULFATE 2 MG/ML CARP IV PRN ×2 (10:39→10:40)
[2021-02-13] MEDS: MAGNESIUM SULFATE / D5W 1 GM/100 ML BAG IV SCH ×2 (10:46→13:18)
--- NOTE | 2021-02-13 11:10 | Discharge Summary ---
Date of Service February 13, 2021 Admission HPI Per Admitting Provider Nga Thornton is here for poor ostomy output. She has a history of ovarian cancer and was having problems with obstruction and had a ileostomy placed for this in November. She has had sharp side pains after eating for the last 1-2 weeks. On Friday she was feeling poorly over the day and Friday she was again having pain and stayed in bed all day. Friday she again was unable to get out of bed and vomited, so decided to come to the ER for further evaluation. She has had poor output, although she normally has high output. She did empty her ostomy tonight there was no blood. Her Oncologist is based out of [place] but gets some of her care here in at [facility]. She takes Oxycodone 10 mg at bed normally and Tylenol throughout the day. Her pain was a 7/10 prior to coming to the hospital and was 5/10 after pain medication. She said that she would be okay with her pain being a 5/10. Social: Tobacco 5-6 cigarettes a day (declined a nicotine patch) ETOH: none substance use: none Admission Exam Per Admitting Provider Constitutional: + thin, + frail appearing and + malnourished; no acute distress Eyes: PERRL, conjunctivae normal, anicteric sclerae ENMT: Ears: no hearing impairment Nose: + dry nasal mucous membranes Neck: normal visual inspection Respiratory: normal respiratory effort, lungs clear to auscultation Cardiovascular: RRR, no murmur, no edema Gastrointestinal (Abdomen): - large mass palpated predominantly in the left upper quadrant - increased bowel sounds - tender diffusely Musculoskeletal: no cyanosis or clubbing, extremities motor strength 5/5 Skin: no rashes, warm and dry Neurologic: no focal motor deficits Psychiatric: Orientation: alert Eye Contact: good eye contact Speech: no pressured speech Affect: + depressed affect Principal Diagnosis Progressive carcinomatosis with fluid collection causing chest/abdominal discomfort Discharge Exam Constitutional + thin, + frail appearing and + malnourished; no acute distress and + uncomfortable laying on her side resting Eyes PERRL, conjunctivae normal, anicteric sclerae ENMT Ears: no hearing impairment Nose: + dry nasal mucous membranes Neck normal visual inspection Respiratory normal respiratory effort, lungs clear to auscultation Auscultation: + diminished lung sounds and + crackles (bibasilar) Cardiovascular RRR, no murmur, no edema Gastrointestinal (Abdomen) +BS, hyperactive Ileostomy to LLQ with minimal brown output, no blood palpable mass to LUQ Musculoskeletal no cyanosis or clubbing, extremities motor strength 5/5 Skin warm, dry Neurologic no focal motor deficits Psychiatric Orientation: alert Eye Contact: good eye contact Speech: no pressured speech Affect: + depressed affect Lymphatic + lymphadenopathy Discharge Data Allergies Allergy/AdvReac Type Severity Reaction Status Date / Time cashew nut Allergy Severe ANAPHYLAXIS Verified 01/12/21 11:32 pecan nut Allergy Severe ANAPHYLAXIS Verified 01/12/21 11:32 walnut Allergy Severe ANAPHYLAXIS Verified 01/12/21 11:32 Beef Containing Products Allergy Intermediate itch hives Verified 01/12/21 11:32 milk Allergy Intermediate HIVES Verified 01/12/21 11:32 corn Allergy Mild itch Verified 01/12/21 11:32 shellfish derived Allergy Mild TESTED Verified 01/12/21 11:32 POSTITIVE ON SCRATCH TEST tomato Allergy Mild TESTED Verified 01/12/21 11:32 POSITIVE ON SCRATCH TEST chicken derived Allergy Unknown Unknown Verified 01/12/21 11:32 gluten Allergy Unknown Unknown Verified 01/12/21 11:32 hazelnut Allergy Unknown unknown Verified 01/12/21 11:32 per testing Histamine H2 Inhibitors Allergy Unknown unknown Verified 01/12/21 11:32 per tesing nut - unspecified Allergy Unknown unknown Verified 01/12/21 11:32 per testing peas Allergy Unknown unknown Verified 01/12/21 11:32 per testing pistachio nut Allergy Unknown unknown Verified 01/12/21 11:32 per testing scallops Allergy Unknown unknown Verified 01/12/21 11:32 per testing shrimp Allergy Unknown unknown Verified 01/12/21 11:32 per testing wheat Allergy Unknown Unknown Verified 01/12/21 11:32 Consultations 02/13/21 00:53 ED Decision to Admit Stat 02/13/21 09:19 Consult General Surgery Routine Ordered Studies 02/12/21 20:32 CT abd pelvis IV con only Urgent Hospital Course (1) Carcinomatosis: 65 yo F w/ pMHx. of anxiety, high output ileostomy, and ovarian cancer with carcinomatosis s/p ileostomy presenting with chest/abd. pain, nausea, and poor output without obstruction on CT statrad CAT scan of her abdomen pelvis with IV contrast shows significant progression in the abdominal pelvic peritoneal carcinomatosis. Interval development of 17 cm fluid collection in the region of the lesser sac with secondary gastric compression statistically relates to metastatic disease. Retroperitoneal lymphadenopathy. Areas of bowel wall thickening, likely secondary to metastatic disease although an enteritis could appear similar. There is no evidence of bowel obstruction or free air. She was recently admitted for possible enteritis however fluid at that time was not felt to be needed to be drained per previous surgeon who performed her ileostomy in November Discussed these findings with her car supplier, Ana Maria SOUZA, who felt that this increase in size should have drainage possibly through IR at different facility ([facility] recent surgery for Ileostomy) to prevent recurrence and possibly that she should continue with a drain in place. she had only received 1 cycle of the doxorubicin carboplatin the end of December which would not yield a significant response yet and will need to get back in with him as soon as possible after current transfer and intervention. discussed with radiology at this facility who did not feel comfortable at this facility. Also discussed with general surgery who recommended transfer at this time. WBCs low at 3.8, lactic within normal limits. Hemodynamically stable BP 101/64, 84bpm, Temp 36.5C, 100% on RA Patient was initially given fentanyl in the emergency department with significant relief in her pain however was continued on Dilaudid which did not seem to be very effective and she was placed on morphine and dose was increased to 2 mg IV as needed She continues to be n.p.o. Zofran has been provided as needed for nausea she typically Gets 1 L of normal saline at home daily to maintain hydration and her hydration status has improved since admission last evening Discussed the case with [facility] [place]where she follows with her car supplier Dr. Dr. Carnes) and patient was accepted for possible percutaneous versus surgical drainage of this fluid collection. Patient will be transported to room 537 when transportation arranged Chest/abdomen pain likely 2/2 cancer troponin negative Tylenol and Dilaudid available for pain --> changed to Morphine as this is more effective for her - K-pad available Normocytic anemia fluid collection in abdomen could represent hematoma although is likely related to metastatic disease Recommend continued blood count monitoring and possible need to add iron/B12/folate studies given her anemia is normocytic but suspect some of this is related to her chronic disease Malnutrition w/ Albumin 2.7 NPO for now, restart diet if clinically improving Anxiety - continue buspirone prn HTN - continue home diltiazem at half her previous dose as decreased on last admission in December given the low blood pressure and SVT without recurrence She has been provided with Lovenox subcu while inpatient (2) Chest pain: (3) Abdominal pain: (4) Malnutrition: (5) Ileostomy in place: (6) Anemia: (7) Anxiety: (8) Hypertension: Total Time Total Time Spent Total Time Spent (In Minutes): 120 Total Time Includes: Examination of the Patient, Discharge Planning and Communication With Other Providers Discharge Plan Discharge Items Patient Disposition: Transfer Acute Care Hospital Reason For Visit: POOR OSTOMY OUTPUT Discharge Diagnosis: Progressive carcinomatosis with fluid collection requiring drainage Goals: You have been hospitalized for an acute medical problem. During your stay at [facility], we have made an effort to correct the problem that brought you to the hospital while keeping you as comfortable as possible. Medications were used to bring your condition under control and your discharge instructions will include directions for any medications you should take after leaving the hospital. Please make sure you see your Primary Care Provider as part of your follow up plan. Activity: As commented below Non-emergency contact: Primary Care Provider and Oncologist Call non-emergency contact if: you have any medication questions Follow-up/Referrals: Jonah Shannon MD [Primary Care Provider] - Ana Maria Hoyt CRNP [Nurse Practitioner] - Diet: Nothing by Mouth Addtl Attending Provider Instructions: You have been hospitalized for chest/abdominal pain. Imaging showed a progression in your carcinomatosis with fluid collection which likely explains your symptoms. Discussion was had with general surgery and oncology who recommended transfer for intervention/drainage. You will need to follow up with oncology FANI at discharge to resume your chemotherapy for treatment as you only got one cycle recently in December and may need to continue with a drain in place while receiving chemotherapy to prevent recurrence. You have been set up transportation for [facility] in [facility] for further evaluation/treatment. It has been a pleasure being a part of the medical team providing for you while you have been in the hospital. Take care Pending Studies at Discharge: No Stand-Alone Forms: My [facility] Skilled Items Patient informed of condition?: Yes DNR: No Discharge Level of Care: Other Communicable Disease: No Discharge Prognosis: Stable Lines: Peripheral IV Urinary Catheter: No Medications and DC Order Prescriptions: Continued Metamucil (with sugar) 3.4 gram powder in packet 1 ea PO BID PRN (Reason: Constipation) RF: 0 diphenoxylate-atropine 2.5-0.025 mg/5 mL liquid 5 ml PO Q8H PRN (Reason: diarrhea) Qty: 60 RF: 2 ascorbic acid (vitamin C) [Vitamin C] 1,000 mg Tablet 1,000 mg PO QAM RF: 0 epinephrine [EpiPen] 0.3 mg/0.3 mL Auto-Injector 0.3 mg IM DIRECTED PRN (Reason: Allergic Reaction) RF: 0 cholecalciferol (vitamin D3) [Vitamin D3] 50 mcg (2,000 unit) Capsule 100 mcg PO DAILY RF: 0 One Daily For Women 18-0.4 mg Tablet 1 tab PO DAILY RF: 0 buspirone 7.5 mg tablet 7.5 mg PO TID PRN (Reason: Anxiety) RF: 0 diltiazem HCl [Cardizem CD] 120 mg capsule,extended release 24hr 120 mg PO DAILY Qty: 30 RF: 0 Discharge Orders: Discharge Order (Routine); Ordered 02/13/21 Ordered By: Denae Hylton Admission Data Admit Date/Time: 02/13/21 01:48 Attending Provider: Antonietta Soto Admit Provider: David Banks Primary Care Provider: Jonah Shannon Other Providers: Lori Abreu ; Joaquin Mcdonald Other Interventions: Discharge Summary Assessment (RN) Last Done: 02/13/21 19:00 Supervising Physician Co-Signing Physician Notes PA Supervision Note: I personally saw and examined the patient. I verified all cassidy points and agree with MARILIA Hylton with the following exceptions and/or additions: S-patient reports ongoing upper abdominal pain and nausea but no vomiting. She is stable for transfer for possible IR drainage of the fluid collection related to her carcinomatosis O- Vitals reviewed Gen: AAOx3, NAD, thin HEENT: Anicteric sclerae, EOMI CV: RRR no mgr nl S1S2 ABD: Positive bowel sounds, soft, positive tenderness palpation without guarding or rebound and epigastric and mid abdomen Pulm: CTAB no wcr Ext: No edema, no calf tenderness Skin: No rashes, warm/dry Neuro: Full strength throughout A/I-38-dguy-old female here with metastatic ovarian cancer with carcinomatosis, with intra-abdominal fluid collection causing abdominal pain and nausea. Transfer out for possible IR to drain fluid collection for palliation Coding Level of Care Code 27817 OBS Care - Discharge (25 - SIGNIFICANT, SEPARATELY IDENTIFIABLE ) Diagnoses Carcinomatosis C80.0 Chest pain R07.9 Abdominal pain R10.84 Abdominal location: generalized Malnutrition E46 I[address]ostomy [address] Z93.2 Anemia D64.9 Anxiety F41.9 Hypertension I10
--- NOTE | 2021-02-13 12:59 | Billing Data ---
Date of Service February 13, 2021 Coding Level of Care Code 49660 OBS Care - Level 3
[2021-02-13] MEDS: MoRPHine SULFATE 2 MG/ML CARP IV PRN ×2 (13:18→17:47)
--- NOTE | 2021-02-13 14:13 | Electrocardiogram Report ---
Test Reason : Blood Pressure : / mmHG Vent. Rate : 086 BPM Atrial Rate : 086 BPM P-R Int : 156 ms QRS Dur : 076 ms QT Int : 344 ms P-R-T Axes : 063 007 035 degrees QTc Int : 411 ms Normal sinus rhythm Possible Left atrial enlargement Borderline ECG When compared with ECG of 04-JAN-2021 19:59, No significant change was found Confirmed by Avinash Moser ([id number]) on 02/13/2021 2:13:14 PM Referred By: Jonah Shannon Confirmed By:Bob Moser
== END 2021-02-13 20:16 | disposition short-term general hospital (02) ==
LOC: 3N 19:56 → ED 19:56 → SUATTDRO 02-13 01:48 → 3N 02-13 02:32

== ENCOUNTER 2021-04-20 14:30 | Observation (INO) ==
--- NOTE | 2021-04-20 15:39 | Emergency Department Note ---
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 Patient and present and state they were alerted that she has had blood clots on CT findings was sent here for further evaluation. Re port was having a routine scan but moved this up from last week to this week and she states she has been feeling some increased swelling in her abdomen as well as her legs. Patient denies significant shortness of breath or lightheadedness. Reports some pain on her right abdomen as well as the lower chest wall border of the upper abdomen. Denies any falls. Denies a history of blood clots. Not currently on chemotherapy. Follows with [facility] for oncology in addition to [facility] locally. Patient's not currently on anticoagulants or antiplatelets but states after her prior surgery she was transiently on Lovenox shots previously. REVIEW OF SYSTEMS: A total of 10 review of systems was obtained and negative except as stated above in the HPI. PAST MEDICAL HISTORY: As noted above MEDICATIONS: Reviewed home medication list does not currently include anticoagulants SOCIAL HISTORY: Lives at home with PHYSICAL EXAM: GENERAL: alert and oriented in no acute distress on stretcher Head: normocephalic and atraumatic EYES: No injection, discharge or icterus. NECK: Trachea midline. LUNGS: Airway patent. No retractions. Breath sounds clear with good air entry bilaterally. HEART: Regular rate and rhythm. Right upper chest wall port present ABDOMEN: Soft mildly diffusely tender but no peritoneal signs appreciated. SKIN: Acyanotic, warm, dry, without rashes EXTREMITIES: No significant deformity with 1+ bilateral lower extremity swelling without erythema. NEUROLOGICAL: No focal deficits. No aphasia. No facial droop or slurred speech. EK bpm normal sinus rhythm. No PVC or PAC. No acute ST segment elevation or depression. QRS 431. V1 and V2 T wave inversions. Compared to previous from February 12 of this year V2 to inversion is new. CONTINUOUS CARDIAC MONITORING: was ordered and showed a heart rate of 70-80s bpm in normal sinus rhythm Patient's laboratory studies and imaging reviewed. Differential includes Reactive airway disease, pneumonia, pneumothorax, COPD, CHF, infections, cardiac ischemia, pulmonary embolism, musculoskeletal, gastroin testinal, as well as other pathologies. IMPRESSION/MEDICAL DECISION MAKING: Reviewed CT findings from today from the radiology report with the patient and her at bedside. Extensive bilateral PEs are noted with segmental and subsegmental PEs in all pulmonary lobes. Findings of peritoneal carcinoma ptosis continue with some necrotic retroperitoneal lymphadenopathy. Some peritoneal fluid is again noted particular in the left lower quadrant based on the read. Blood work here without significant thrombocytopenia and stable anemia. No signs of significant renal dysfunction. No evidence of elevated troponin or BNP. Patient again not requiring oxygen. Discussed with Dr. Yarbrough from the anticoagulation clinic who recommended Lovenox. [facility] was eventually contacted after some delay given the hour to discuss the case. Discussed with the patient is having some abdominal and right-sided lower chest and back discomfort believe given the extensive nature of her PEs with her underlying cancer further observation while initiating anticoagulation here at the hospital would be reasonable. The patient was in agreement. Given her evening dose of oxycodone and Lovenox was ordered (60 mg dose for twice daily dosing). The hospitalist will be contacted. Moderate risk Pesi score DIAGNOSIS: Bilateral PEs, right-sided chest pain, ovarian cancer DISPOSITION: Hospitalist will evaluate Patient was agreeable with this plan. Past Med/Surg History Medical History Adult situational stress disorder YESICA (acute kidney injury) Anxiety Chronic back pain Degenerative cervical disc Gallstone GERD (gastroesophageal reflux disease) Hyperlipidemia Hypertension Macular degeneration, dry Menopause Osteoarthritis Ovarian cancer 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 Small bowel obstruction SVT (supraventricular tachycardia) Symptomatic cholelithiasis Surgical History H/O lumpectomy left breast--benign History of colonoscopy History of hysterectomy for cancer hyster, bso, staging 3 C ov ca History of laparoscopy OVARIAN CYST REMOVED History of ovarian cystectomy History of tooth extraction some upper and lower teeth History of vascular access device right chest wall--Aport Hx laparoscopic cholecystectomy Hx laparoscopic cholecystectomy Dr. Rajesh Kraft on 05/03/19 Hx of foot surgery BILATERAL--hardware in place S/P dilation and curettage Family History Unknown Osteoporosis Father Hypertension Hyperlipidemia Hx of malignant mesothelioma Lung cancer Mother Hyperlipidemia Hypertension [place] disease Breast cancer CKD (chronic kidney disease) Grandfather Renal failure Brother Congenital heart disease Gluten intolerance Grandmother (Maternal) Occlusion of intestine or colon Denies family history of Ovarian cancer Prostate cancer Colorectal cancer Social History Smoking Status: Current every day smoker Tobacco Type: Cigarettes Cigarettes Per Day: 10; Second Hand Exposure: Yes; Tobacco Cessation Education Requested by Patient: No Hx Alcohol Use: Yes Alcohol type: other Hx Substance Use: No Preferred Language: Tajik Communication Ability: Effective Visual Impairment: No Limitations Hearing Ability: Normal Technology Lab Teacher Required: No Beliefs That Will Affect Care: None marital status: Current Living Situation: Spouse current occupational status: employed Other Information That Helps Us Care for You: No Feels Safe at Home: Yes Safety Concerns: Feels Safe At This Time Childhood Exposure to Second-Hand Smoke: Yes Dental Care, Regularly: Yes Physical Activity Frequency: Daily Seatbelt Use: always Sunscreen Use: No Assistive Devices: None Allergies Allergies Allergy/AdvReac Type Severity Reaction Status Date / Time cashew nut Allergy Severe ANAPHYLAXIS Verified 04/20/21 16:13 pecan nut Allergy Severe ANAPHYLAXIS Verified 04/20/21 16:13 walnut Allergy Severe ANAPHYLAXIS Verified 04/20/21 16:13 Beef Containing Products Allergy Intermediate itch hives Verified 04/20/21 16:13 milk Allergy Intermediate HIVES Verified 04/20/21 16:13 corn Allergy Mild itch Verified 04/20/21 16:13 shellfish derived Allergy Mild TESTED Verified 04/20/21 16:13 POSTITIVE ON SCRATCH TEST tomato Allergy Mild TESTED Verified 04/20/21 16:13 POSITIVE ON SCRATCH TEST chicken derived Allergy Unknown Unknown Verified 04/20/21 16:13 gluten Allergy Unknown Unknown Verified 04/20/21 16:13 hazelnut Allergy Unknown unknown Verified 04/20/21 16:13 per testing Histamine H2 Inhibitors Allergy Unknown unknown Verified 04/20/21 16:13 per tesing nut - unspecified Allergy Unknown unknown Verified 04/20/21 16:13 per testing peas Allergy Unknown unknown Verified 04/20/21 16:13 per testing pistachio nut Allergy Unknown unknown Verified 04/20/21 16:13 per testing scallops Allergy Unknown unknown Verified 04/20/21 16:13 per testing shrimp Allergy Unknown unknown Verified 04/20/21 16:13 per testing wheat Allergy Unknown Unknown Verified 04/20/21 16:13 Home Meds Home Medications Medication Instructions Recorded Confirmed epinephrine [EpiPen] 0.3 mg IM DIRECTED PRN 04/15/19 04/20/21 Otc Laxative 1 tab PO DIRECTED PRN 04/20/21 04/20/21 diltiazem HCl 180 mg PO DAILY 04/20/21 04/20/21 diphenhydramine HCl [Benadryl] 25 mg PO DIRECTED PRN 04/20/21 04/20/21 fentanyl 50 mcg TRANSDERMAL Q72H 04/20/21 04/20/21 oxycodone 10 mg PO .Q4-6HR PRN 04/20/21 04/20/21 pantoprazole 40 mg PO DAILY 04/20/21 04/20/21 Results & Data (ED) Vital Signs Vital Signs - 24 hr 04/20/21 14:32 04/20/21 15:21 04/20/21 16:00 Temperature 36.9 C Temperature Source Temporal Artery Scan Pulse Rate 87 80 78 Pulse Rate [Left Finger] Pulse Rate from SpO2 Sensor 80 78 Pulse Rhythm [Left Finger] Pulse Strength [Left Finger] Respiratory Rate 18 14 16 Respiratory Effort / Characteristics Non-Labored Spontaneous Respiratory Depth Normal Respiratory Pattern Regular Blood Pressure 122/69 Blood Pressure [Right Arm] Blood Pressure Mean 86 Blood Pressure Mean [Right Arm] Blood Pressure Position [Right Arm] Pulse Oximetry 98 98 96 Oxygen Delivery Method Room Air Sepsis Recent Fever Within 48 Hours No Sepsis New/Unexplained Change in Mental Status No Sepsis Action Taken by Nursing No Action Required 04/20/21 17:00 04/20/21 17:29 04/20/21 19:00 Temperature Temperature Source Pulse Rate 81 78 Pulse Rate [Left Finger] 77 Pulse Rate from SpO2 Sensor 81 77 Pulse Rhythm [Left Finger] Regular Pulse Strength [Left Finger] Normal Respiratory Rate 15 17 16 Respiratory Effort / Characteristics Non-Labored Spontaneous Respiratory Depth Normal Respiratory Pattern Regular Blood Pressure Blood Pressure [Right Arm] 127/72 Blood Pressure Mean Blood Pressure Mean [Right Arm] 90 Blood Pressure Position [Right Arm] Sitting Pulse Oximetry 95 97 96 Oxygen Delivery Method Room Air Sepsis Recent Fever Within 48 Hours Sepsis New/Unexplained Change in Mental Status Sepsis Action Taken by Nursing 04/20/21 19:51 04/20/21 19:52 04/20/21 19:56 Temperature Temperature Source Pulse Rate 76 Pulse Rate [Left Finger] 85 Pulse Rate from SpO2 Sensor 74 Pulse Rhythm [Left Finger] Pulse Strength [Left Finger] Respiratory Rate 16 16 Respiratory Effort / Characteristics Non-Labored Spontaneous Respiratory Depth Normal Respiratory Pattern Blood Pressure 114/60 Blood Pressure [Right Arm] Blood Pressure Mean 78 Blood Pressure Mean [Right Arm] Blood Pressure Position [Right Arm] Pulse Oximetry 97 98 Oxygen Delivery Method Room Air Room Air Room Air Sepsis Recent Fever Within 48 Hours Sepsis New/Unexplained Change in Mental Status Sepsis Action Taken by Nursing Laboratory Data Result diagrams: 04/20/21 15:27 04/20/21 15:27 Lab Results 04/20/21 04/20/21 04/20/21 Range/Units 15:27 15:27 15:27 WBC 6.19 (4.8-10.8) K/uL RBC 3.15 L (4.2-5.4) M/uL Hgb 9.0 L (12.0-16.0) g/dL Hct 28.7 L (37-47) % MCV 91.1 (80-100) fL MCH 28.6 (25-34) pg MCHC 31.4 L (32-36) g/dL RDW Std Deviation 50.6 H (36.4-46.3) fL RDW Coeff of Agnes 15.0 H (11.5-14.5) % Plt Count 352 (130-400) K/uL MPV 9.4 (7.4-10.4) fL Immature Gran % (Auto) 0.2 % Neut % (Auto) 63.4 % Lymph % (Auto) 24.4 % Menard % (Auto) 7.6 % Eos % (Auto) 4.2 % Baso % (Auto) 0.2 % Neut # (Auto) 3.93 (1.4-6.5) K/uL Lymph # (Auto) 1.51 (1.2-3.4) K/uL Menard # (Auto) 0.47 (0.11-0.59) K/uL Eos # (Auto) 0.26 (0-0.5) K/uL Baso # (Auto) 0.01 (0-0.2) K/uL Immature Gran # (Auto) 0.01 (0.00-0.02) K/uL PT 10.2 (9.0-12.0) Seconds INR 1.0 (0.9-1.1) APTT 27.9 (21.0-31.0) Seconds PTT Ratio 1.1 Sodium 137 (136-145) mmol/L Potassium 3.9 (3.5-5.1) mmol/L Chloride 104 (98-107) mmol/L Carbon Dioxide 27 (21-32) mmol/L Anion Gap 6.0 (3-11) BUN 11 (7-18) mg/dl Creatinine 0.84 (0.6-1.2) mg/dl Est Cr Clr Drug Dosing Not Reportable Est GFR ( Amer) 85.7 ml/min Est GFR (Non-Af Amer) 74.0 ml/min BUN/Creatinine Ratio 13.1 (10-20) Glucose 103 H (70-99) mg/dl Calcium 8.8 (8.5-10.1) mg/dl Magnesium 1.6 L (1.8-2.4) mg/dl Total Bilirubin 0.3 (0.2-1) mg/dl AST 22 (15-37) U/L ALT 20 (12-78) U/L Alkaline Phosphatase 119 H (45-117) U/L Troponin I < 0.015 (0-0.045) ng/ml NT-Pro-B Natriuret Pep 598 (0-900) pg/ml Total Protein 6.6 (6.4-8.2) gm/dl Albumin 3.0 L (3.4-5.0) gm/dl Globulin 3.6 (2.5-4.0) gm/dl Albumin/Globulin Ratio 0.8 L (0.9-2) COVID-19 Eval Order SARS-CoV-2 (PCR) (Negative) 04/20/21 04/20/21 Range/Units 15:27 15:27 WBC (4.8-10.8) K/uL RBC (4.2-5.4) M/uL Hgb (12.0-16.0) g/dL Hct (37-47) % MCV (80-100) fL MCH (25-34) pg MCHC (32-36) g/dL RDW Std Deviation (36.4-46.3) fL RDW Coeff of Agnes (11.5-14.5) % Plt Count (130-400) K/uL MPV (7.4-10.4) fL Immature Gran % (Auto) % Neut % (Auto) % Lymph % (Auto) % Menard % (Auto) % Eos % (Auto) % Baso % (Auto) % Neut # (Auto) (1.4-6.5) K/uL Lymph # (Auto) (1.2-3.4) K/uL Menard # (Auto) (0.11-0.59) K/uL Eos # (Auto) (0-0.5) K/uL Baso # (Auto) (0-0.2) K/uL Immature Gran # (Auto) (0.00-0.02) K/uL PT (9.0-12.0) Seconds INR (0.9-1.1) APTT (21.0-31.0) Seconds PTT Ratio Sodium (136-145) mmol/L Potassium (3.5-5.1) mmol/L Chloride (98-107) mmol/L Carbon Dioxide (21-32) mmol/L Anion Gap (3-11) BUN (7-18) mg/dl Creatinine (0.6-1.2) mg/dl Est Cr Clr Drug Dosing Est GFR ( Amer) ml/min Est GFR (Non-Af Amer) ml/min BUN/Creatinine Ratio (10-20) Glucose (70-99) mg/dl Calcium (8.5-10.1) mg/dl Magnesium (1.8-2.4) mg/dl Total Bilirubin (0.2-1) mg/dl AST (15-37) U/L ALT (12-78) U/L Alkaline Phosphatase (45-117) U/L Troponin I (0-0.045) ng/ml NT-Pro-B Natriuret Pep (0-900) pg/ml Total Protein (6.4-8.2) gm/dl Albumin (3.4-5.0) gm/dl Globulin (2.5-4.0) gm/dl Albumin/Globulin Ratio (0.9-2) COVID-19 Eval Order Covid19 at [facility] SARS-CoV-2 (PCR) NEGATIVE (Negative) Administered Medications Diphenhydramine HCl (Diphenhydramine Capsule 25 Mg Cap) 25 mg PO Q6H PRN PRN Reason: NEEDED Stop: 05/20/21 21:39 Last Admin: 04/20/21 22:33 Dose: 25 mg Documented by: [id number] Magnesium Sulfate/Dextrose (Magnesium Sulfate / D5w) 1 gm in 100 mls @ 50 m ls/hr IV Q2H CHLOE Stop: 04/21/21 01:59 Last Admin: 04/20/21 22:14 Dose: 50 mls/hr Documented by: [id number] Miscellaneous (Check Fentanyl Patch Placement) 1 ea N/A QS CHLOE Stop: 05/21/21 00:00 Last Admin: 04/20/21 22:17 Dose: 1 ea Documented by: [id number] Discontinued Medications Enoxaparin Sodium (Enoxaparin Inj 60 Mg/0.6 Ml Syr) 60 mg SQ NOW ONE Stop: 04/20/21 17:16 Last Admin: 04/20/21 17:26 Dose: 60 mg Documented by: [id number] Oxycodone HCl (Oxycodone Hcl Ir 5 Mg Tab (Immediate Release)) 10 mg PO NOW STA Stop: 04/20/21 17:10 Last Admin: 04/20/21 17:26 Dose: 10 mg Documented by: [id number] Discharge Plan Visit Data Chief Complaint: Respiratory Problems Stated Complaint: CT SCAN SHOWED BLOOD CLOTS IN LUNGS,REF BY DOC ED Provider: Michele Galvan Discharge Problem: Pulmonary embolism, Ovarian cancer, Chest pain, Upper abdominal pain Patient Disposition: Admitted As Inpatient Discharge Instructions Interventions: ED Discharge Assessment Last Done: 04/20/21 20:59 Discharge Problem: Pulmonary embolism Qualifiers: Pulmonary embolism type: other Chronicity: acute Acute cor pulmonale presence: without acute cor pulmonale Qualified Code(s): I26.99 - Other pulmonary embolism without acute cor pulmonale Ovarian cancer Qualifiers: Laterality: unspecified laterality Qualified Code(s): C56.9 - Malignant neoplasm of unspecified ovary Chest pain Qualifiers: Chest pain type: unspecified Qualified Code(s): R07.9 - Chest pain, unspecified
[2021-04-20 15:53] LABS: Partial Thromboplastin Ratio 1.1; Partial Thromboplastin Time 27.9 Seconds (21.0-31.0); Prothrombin Time 10.2 Seconds (9.0-12.0)
[2021-04-20 15:55] LABS: Alanine Aminotransferase 20 U/L (12-78); Aspartate Aminotransferase 22 U/L (15-37); BUN Creatinine Ratio 13.1 (10-20); Blood Urea Nitrogen 11 mg/dl (7-18); Calcium 8.8 mg/dl (8.5-10.1); Carbon Dioxide 27 mmol/L (21-32); Chloride 104 mmol/L (98-107); Est GFR (African American) 85.7 ml/min; Glucose 103 mg/dl (70-99); Magnesium 1.6 mg/dl (1.8-2.4); Potassium 3.9 mmol/L (3.5-5.1); Sodium 137 mmol/L (136-145)
[2021-04-20 16:00] LABS: Albumin Globulin Ratio 0.8 (0.9-2); Alkaline Phosphatase 119 U/L (45-117); Bilirubin,Total 0.3 mg/dl (0.2-1); Globulin 3.6 gm/dl (2.5-4.0); NT Pro B Type Natriuretic Pept 598 pg/ml (0-900); Total Protein 6.6 gm/dl (6.4-8.2); Troponin I < 0.015 ng/ml (0-0.045)
[2021-04-20] MEDS ORDERED: oxyCODONE HCL IR 5 MG TAB (IMMEDIATE RELEASE) PO STA (17:09)
[2021-04-20 17:13] LABS: Basophils # (auto) 0.01 K/uL (0-0.2); Basophils % (auto) 0.2 %; Eosinophils # (auto) 0.26 K/uL (0-0.5); Eosinophils % (auto) 4.2 %; Hematocrit (blood only) 28.7 % (37-47); Immature Granulocytes # (auto) 0.01 K/uL (0.00-0.02); Immature Granulocytes % (auto) 0.2 %; Lymphocytes # (auto) 1.51 K/uL (1.2-3.4); Lymphocytes % (auto) 24.4 %; Mean Corpuscular Hemoglobin 28.6 pg (25-34); Mean Corpuscular Hgb Conc 31.4 g/dL (32-36); Mean Corpuscular Volume 91.1 fL (80-100); Mean Platelet Volume 9.4 fL (7.4-10.4); Monocytes # (auto) 0.47 K/uL (0.11-0.59); Monocytes % (auto) 7.6 %; Neutrophils # (auto) 3.93 K/uL (1.4-6.5); Neutrophils % (auto) 63.4 %; Platelet Count 352 K/uL (130-400); RDW Standard Deviation 50.6 fL (36.4-46.3); Red Blood Count 3.15 M/uL (4.2-5.4); White Blood Count 6.19 K/uL (4.8-10.8)
[2021-04-20] MEDS ORDERED: ENOXAPARIN INJ 60 MG/0.6 ML SYR SQ ONE (17:15)
--- NOTE | 2021-04-20 20:33 | History & Physical Report ---
Date of Service April 20, 2021 Assessment & Plan (1) Pulmonary embolism: Bilateral extensive pulmonary emboli- As noted on CT scan Patient did have bilateral medial thigh aching over the past few weeks, with negative venous Doppler studies in ED. Started on Lovenox 60 mg subcu x1 by the ED. Continue on Lovenox 1.5 mg kilogram subcu daily Present on Admission?: Yes (2) High output ileostomy: No complaints Present on Admission?: Yes (3) Carcinomatosis: Noted to be increasing on CT, which goes along with her symptoms. Chronic pain syndrome: She was increased to fentanyl 50 mcg 1 week ago, and is using oxycodone 10 mg p.o. approximately twice daily Present on Admission?: Yes (4) Ovarian cancer: Not on chemotherapy per patient Present on Admission?: Yes (5) SVT (supraventricular tachycardia): SVT/hypertension- Continue diltiazem 180 mg daily Present on Admission?: Yes (6) Hypertension: See above Present on Admission?: Yes (7) Hypomagnesemia: Give magnesium sulfate 2 g IV, and repeat laboratories in a.m. Present on Admission?: Yes History of Present Illness Chief Complaint: The patient presents to the emergency department with complaint of feeling like her cancer is increasing in size since she stopped chemotherapy, and was referred to the emergency department by her outpatient physician's office due to finding pulmonary emboli on CT angiography of chest earlier in the day today Primary Care Provider: Jonah Shannon MD The patient is a 65-year-old female with a past medical history including ovarian cancer, anemia, high output ileostomy, malnutrition, enteritis, short gut syndrome, hypertension, abdominal peritoneal carcinomatosis, YESICA, SBO, cholecystectomy, appendectomy, pulmonary nodules, hyperlipidemia, degenerative cervical disc disease, adult situational stress disorder and SVT. She is referred to the ED as above, although she reports no significant dyspnea on exertion or shortness of breath. She does report bilateral medial lower extremity pain from knees to groin Allergies Allergy/AdvReac Type Severity Reaction Status Date / Time cashew nut Allergy Severe ANAPHYLAXIS Verified 04/20/21 16:13 pecan nut Allergy Severe ANAPHYLAXIS Verified 04/20/21 16:13 walnut Allergy Severe ANAPHYLAXIS Verified 04/20/21 16:13 Beef Containing Products Allergy Intermediate itch hives Verified 04/20/21 16:13 milk Allergy Intermediate HIVES Verified 04/20/21 16:13 corn Allergy Mild itch Verified 04/20/21 16:13 shellfish derived Allergy Mild TESTED Verified 04/20/21 16:13 POSTITIVE ON SCRATCH TEST tomato Allergy Mild TESTED Verified 04/20/21 16:13 POSITIVE ON SCRATCH TEST chicken derived Allergy Unknown Unknown Verified 04/20/21 16:13 gluten Allergy Unknown Unknown Verified 04/20/21 16:13 hazelnut Allergy Unknown unknown Verified 04/20/21 16:13 per testing Histamine H2 Inhibitors Allergy Unknown unknown Verified 04/20/21 16:13 per tesing nut - unspecified Allergy Unknown unknown Verified 04/20/21 16:13 per testing peas Allergy Unknown unknown Verified 04/20/21 16:13 per testing pistachio nut Allergy Unknown unknown Verified 04/20/21 16:13 per testing scallops Allergy Unknown unknown Verified 04/20/21 16:13 per testing shrimp Allergy Unknown unknown Verified 04/20/21 16:13 per testing wheat Allergy Unknown Unknown Verified 04/20/21 16:13 Home Medications Medication Instructions Recorded Confirmed Type epinephrine [EpiPen] 0.3 mg IM DIRECTED PRN 04/15/19 04/20/21 History Otc Laxative 1 tab PO DIRECTED PRN 04/20/21 04/20/21 History diltiazem HCl 180 mg PO DAILY 04/20/21 04/20/21 History diphenhydramine HCl [Benadryl] 25 mg PO DIRECTED PRN 04/20/21 04/20/21 History fentanyl 50 mcg TRANSDERMAL Q72H 04/20/21 04/20/21 History oxycodone 10 mg PO .Q4-6HR PRN 04/20/21 04/20/21 History pantoprazole 40 mg PO DAILY 04/20/21 04/20/21 History Past Med/Surg History Medical History Adult situational stress disorder YESICA (acute kidney injury) Anxiety Chronic back pain Degenerative cervical disc Gallstone GERD (gastroesophageal reflux disease) Hyperlipidemia Hypertension Macular degeneration, dry Menopause Osteoarthritis Ovarian cancer 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 Small bowel obstruction SVT (supraventricular tachycardia) Symptomatic cholelithiasis Surgical History H/O lumpectomy left breast--benign History of colonoscopy History of hysterectomy for cancer hyster, bso, staging 3 C ov ca History of laparoscopy OVARIAN CYST REMOVED History of ovarian cystectomy History of tooth extraction some upper and lower teeth History of vascular access device right chest wall--[place] Hx laparoscopic cholecystectomy Hx laparoscopic cholecystectomy Dr. Rajesh Kraft on 05/03/19 Hx of foot surgery BILATERAL--hardware in place S/P dilation and curettage Family History Unknown Osteoporosis Father Hypertension Hyperlipidemia Hx of malignant mesothelioma Lung cancer Mother Hyperlipidemia Hypertension Mason disease Breast cancer CKD (chronic kidney disease) Grandfather Renal failure Brother Congenital heart disease Gluten intolerance Grandmother (Maternal) Occlusion of intestine or colon Denies family history of Ovarian cancer Prostate cancer Colorectal cancer Social History Smoking Status: Current every day smoker Tobacco Type: Cigarettes Cigarettes Per Day: 10; Second Hand Exposure: Yes; Tobacco Cessation Education Requested by Patient: No Hx Alcohol Use: Yes Alcohol type: other Hx Substance Use: No Preferred Language: Bulgarian Communication Ability: Effective Visual Impairment: No Limitations Hearing Ability: Normal [employer] Teacher Required: No Beliefs That Will Affect Care: None marital status: Current Living Situation: Spouse current occupational status: employed Other Information That Helps Us Care for You: No Feels Safe at Home: Yes Safety Concerns: Feels Safe At This Time Childhood Exposure to Second-Hand Smoke: Yes Dental Care, Regularly: Yes Physical Activity Frequency: Daily Seatbelt Use: always Sunscreen Use: No Assistive Devices: None Review of Systems Review of Systems: The patient denies chest pain, palpitations, shortness of breath, dyspnea on exertion, cough, lower extremity swelling, sore throat, fevers, chills, sweats, weight change, fatigue, nausea, vomiting, diarrhea , constipation, blood in urine or stool, dysuria, urinary frequency or urgency, lightheadedness, dizziness, headache, memory loss, loss of consciousness, rash, abnormal bruising or bleeding, imbalance, focal or generalized weakness, numbness or tingling in arms, generalized arthralgias or myalgias, back or neck pain, or night sweats. The review of systems is otherwise negative other than for that already noted above, and at least 10 systems have been reviewed. Physical Exam Physical Exam: The patient is awake, alert and oriented 3, well developed and well nourished, normocephalic and atraumatic, lying in bed and in no acute distress. HEENT--PERRL, EOMI, mucous membranes and oropharynx normal. Neck--supple. No JVD. No bruits. Thyroid normal, trachea midline, no adenopathy. Heart--normal S1 and S2. No murmurs, rubs or gallops. Lungs--clear bilaterally, no respiratory distress, no accessory muscle use. Abdomen--normal bowel sounds and soft. Nontender. Nondistended, no hernias or masses, no organomegaly. Extremities--no cyanosis or clubbing. No edema. Palpable pain along medial aspect from knees to groin bilaterally Dermatologic--normal skin turgor, normal color, no abnormal lymph nodes, no rash. Neurologic--cranial nerves II through XII grossly intact. Rheumatologic--normal range of motion. Psychiatric--normal affect. Results & Data Results & Data ([facility]) Vital Signs (Past 12 Hours) Vital Signs Temp Pulse Pulse Resp BP BP Pulse Ox 04/20/21 19:56 85 16 98 04/20/21 19:51 76 16 114/60 97 04/20/21 19:00 78 16 96 04/20/21 17:29 77 17 127/72 97 04/20/21 17:00 81 15 95 04/20/21 16:00 78 16 96 04/20/21 15:21 80 14 98 04/20/21 14:32 98.4 F 87 18 122/69 98 Laboratory Results Laboratory Results WBC 6.19 K/uL (4.8-10.8) 04/20/21 15: RBC 3.15 M/uL (4.2-5.4) L 04/20/21 15:27 Hgb 9.0 g/dL (12.0-16.0) L 04/20/21 15: Hct 28.7 % (37-47) L 04/20/21 15: MCV 91.1 fL (80-100) 04/20/21 15: MCH 28.6 pg (25-34) 04/20/21 15: MCHC 31.4 g/dL (32-36) L 04/20/21 15: RDW Std Deviation 50.6 fL (36.4-46.3) H 04/20/21: RDW Coeff of Agnes 15.0 % (11.5-14.5) H 04/20/21 15: Plt Count 352 K/uL (130-400) 04/20/21 15: MPV 9.4 fL (7.4-10.4) 04/20/21 15: Immature Gran % (Auto) 0.2 % 04/20/21 15: Neut % (Auto) 63.4 % 04/20/21: Lymph % (Auto) 24.4 % 04/20/21: [place] % (Auto) 7.6 % 04/20/21: Eos % (Auto) 4.2 % 04/20/21: Baso % (Auto) 0.2 % 04/20/21: Neut # (Auto) 3.93 K/uL (1.4-6.5) 04/20/21: Lymph # (Auto) 1.51 K/uL (1.2-3.4) 04/20/21: [place] # (Auto) 0.47 K/uL (0.11-0.59) 04/20/21: Eos # (Auto) 0.26 K/uL (0-0.5) 04/20/21: Baso # (Auto) 0.01 K/uL (0-0.2) 04/20/21: Immature Gran # (Auto) 0.01 K/uL (0.00-0.02) 04/20/21 15: PT 10.2 Seconds (9.0-12.0) 04/20/21: INR 1.0 (0.9-1.1) 04/20/21: APTT 27.9 Seconds (21.0-31.0) 04/20/21 15: PTT Ratio 1.1 04/20/21 15: Sodium 137 mmol/L (136-145) 04/20/21: Potassium 3.9 mmol/L (3.5-5.1) 04/20/21:27 Chloride 104 mmol/L (98-107) 04/20/21 15: Carbon Dioxide 27 mmol/L (21-32) 04/20/21: Anion Gap 6.0 (3-11) 04/20/21 15: BUN 11 mg/dl (7-18) 04/20/21 15: Creatinine 0.84 mg/dl (0.6-1.2) 04/20/21 15: Est Cr Clr Drug Dosing Not Reportable 04/20/21 15: Est GFR ( Amer) 85.7 ml/min 04/20/21 15: Est GFR (Non-Af Amer) 74.0 ml/min 04/20/21 BUN/Creatinine Ratio 13.1 (10-20) 04/20/21 15: Glucose 103 mg/dl (70-99) H 04/20/21 15: Calcium 8.8 mg/dl (8.5-10.1) 04/20/21: Magnesium 1.6 mg/dl (1.8-2.4) L 04/20/21 15: Total Bilirubin 0.3 mg/dl (0.2-1) 04/20/21 15: AST 22 U/L (15-37) 04/20/21 15: ALT 20 U/L (12-78) 04/20/21 15: Alkaline Phosphatase 119 U/L (45-117) H 04/20/21 15: Troponin I < 0.015 ng/ml (0-0.045) 04/20/21 23:14 NT-Pro-B Natriuret Pep 598 pg/ml (0-900) 04/20/21 15: Total Protein 6.6 gm/dl (6.4-8.2) 04/20/21 15: Albumin 3.0 gm/dl (3.4-5.0) L 04/20/21 15: Globulin 3.6 gm/dl (2.5-4.0) 04/20/21 15: Albumin/Globulin Ratio 0.8 (0.9-2) L 04/20/21 15: Urine Color Yellow 04/20/21 20:42 Urine Appearance Clear (Clear) 04/20/21 20: Urine pH 7.0 (4.5-7.5) 04/20/21 20:42 Ur Specific [place] 1.030 (1.000-1.030) 04/20/21 20:42 Urine Protein Negative (Negative) 04/20/21 20:42 Urine Glucose (UA) Negative (Negative) 04/20/21 20:42 Urine Ketones Negative (Negative) 04/20/21 20:42 Urine Blood Negative (Negative) 04/20/21 20:42 Urine Nitrite Negative (Negative) 04/20/21 20:42 Urine Bilirubin Negative (Negative) 04/20/21 20:42 Urine Urobilinogen Negative (Negative) 04/20/21 20:42 Ur Leukocyte Esterase Trace (Negative) H 04/20/21 20:42 Urine WBC (Auto) 5-10 /hpf (0-5) H 04/20/21 20:42 Urine RBC (Auto) 0-4 /hpf (0-4) 04/20/21 20:42 U Hyaline Cast (Auto) 0 /lpf (0-5) 04/20/21 20:42 U Epithel Cells (Auto) 10-20 /lpf (0-5) H 04/20/21 20:42 Urine Bacteria (Auto) Negative (Negative) 04/20/21 20:42 COVID-19 Eval Order Covid19 at [facility] 04/20/21 15:27 SARS-CoV-2 (PCR) NEGATIVE (Negative) 04/20/21 15:27 Impressions Venous Doppler Study 04/20/21 20:33 ULTRASOUND BILATERAL LOWER EXTREMITY VENOUS CLINICAL HISTORY: Leg pain. Pulmonary embolus. COMPARISON STUDY: No priors TECHNIQUE: Real-time, grayscale, and color Doppler sonography of the deep veins of the right and left lower extremity was performed from the inguinal crease to the calf. Compression and augmentation were utilized. FINDINGS: There is no sonographic evidence of deep venous thrombosis identified in the right or left lower extremity. The common femoral, superficial femoral, and popliteal veins are patent and normally compressible bilaterally. The greater saphenous vein and the profunda femoris vein at the junction with the common femoral vein are clear in both legs. The visualized calf veins are patent bilaterally. IMPRESSION: There is no sonographic evidence of deep venous thrombosis identified in the right or left lower extremity. ACT 112: Negative or not required by law. Electronically signed by: Loyd Schultz M.D. 04/20/2021 9:46 PM Code Status & VTE Plan Code Status Full code VTE Prophylaxis Plan VTE Prophylaxis will be ordered: Yes PG Care Time/CCT Total # of Minutes Spent Total Time Spent with Patient: Total time spent is greater than 50% in coordination of care (as documented) at patient's floor/unit and/or counseling patient: Coding Level of Care Code 84047 Initial Inpt Care Lvl 3 Diagnoses Pulmonary embolism I26.99 Acute cor pulmonale presence: without acute cor pulmonale Chronicity: acute Pulmonary embolism type: other High output ileostomy R19.8; Z93.2 Carcinomatosis C80.0 Ovarian cancer C56.9 SVT (supraventricular tachycardia) I47.1 Hypertension I10 Hypomagnesemia E83.42 (1) Pulmonary embolism Acute cor pulmonale presence: without acute cor pulmonale Chronicity: acute Pulmonary embolism type: other Qualified Code(s): I26.99 - Other pulmonary embolism without acute cor pulmonale
[2021-04-20 20:55] LABS: Appearance Urine Clear (Clear); Bacteria Urine Automated Negative (Negative); Bilirubin Urine Negative (Negative); Blood Urine Negative (Negative); Cast Urine Automated 0 /lpf (0-5); Color Urine Yellow; Glucose Urine UA Negative (Negative); Ketones Urine Negative (Negative); Leukocyte Esterase Urine Trace (Negative); Nitrite Urine Negative (Negative); Protein Urine Negative (Negative); RBC Urine Automated 0-4 /hpf (0-4); Urobilinogen Urine Negative (Negative)
[2021-04-20] MEDS ORDERED: ENOXAPARIN 1.5 MG/KG SQ SCH (21:40)
[2021-04-20] MEDS ORDERED: ACETAMINOPHEN 325 MG TAB PO PRN (21:40)
[2021-04-20] MEDS ORDERED: diphenhydrAMINE Capsule 25 MG CAP PO PRN (21:40)
[2021-04-20] MEDS ORDERED: ONDANSETRON INJ 2 MG/ML 2 ML VIAL IV PRN (21:40)
[2021-04-20] MEDS ORDERED: oxyCODONE HCL IR 5 MG TAB (IMMEDIATE RELEASE) PO PRN (21:40)
--- NOTE | 2021-04-20 21:47 | Ultrasound Report ---
ULTRASOUND BILATERAL LOWER EXTREMITY VENOUS CLINICAL HISTORY: Leg pain. Pulmonary embolus. COMPARISON STUDY: No priors TECHNIQUE: Real-time, grayscale, and color Doppler sonography of the deep veins of the right and left lower extremity was performed from the inguinal crease to the calf. Compression and augmentation wer e utilized. FINDINGS: There is no sonographic evidence of deep venous thrombosis identified in the right or left lower extremity. The common femoral, superficial femoral, and popliteal veins are patent and normally compressible bilaterally. The greater saphenous vein and the profunda femoris vein at the junction w ith the common femoral vein are clear in both legs. The visualized calf veins are patent bilaterally. IMPRESSION: There is no sonographic evidence of deep venous thrombosis identified in the right or lef t lower extremity. ACT 112: Negative or not required by law. Electronically signed by: Loyd Schultz M.D. 04/20/2021 9:46 PM
[2021-04-20] MEDS: MAGNESIUM SULFATE / D5W 1 GM/100 ML BAG IV SCH (22:14)
[2021-04-20] MEDS: CHECK fentaNYL PATCH PLACEMENT SCH (22:17)
[2021-04-21] MEDS: MAGNESIUM SULFATE / D5W 1 GM/100 ML BAG IV SCH (00:32)
[2021-04-21] MEDS ORDERED: ENOXAPARIN 80 MG/0.8 ML SYR SQ SCH (06:00)
[2021-04-21] MEDS: HEPARIN 100 UNIT/ML 5ML FLUSH FLUSH PRN ×2 (06:26→12:55)
[2021-04-21 06:38] LABS: Eosinophils # (auto) 0.26 K/uL (0-0.5); Hematocrit (blood only) 29.3 % (37-47); Hemoglobin 9.3 g/dL (12.0-16.0); Lymphocytes # (auto) 1.45 K/uL (1.2-3.4); Lymphocytes % (auto) 27.8 %; Mean Corpuscular Hemoglobin 28.4 pg (25-34); Mean Corpuscular Hgb Conc 31.7 g/dL (32-36); Mean Corpuscular Volume 89.6 fL (80-100); Monocytes % (auto) 7.7 %; Neutrophils # (auto) 3.11 K/uL (1.4-6.5); Neutrophils % (auto) 59.5 %; Platelet Count 323 K/uL (130-400); RDW Coefficient of Variation 15.1 % (11.5-14.5); RDW Standard Deviation 49.3 fL (36.4-46.3); Red Blood Count 3.27 M/uL (4.2-5.4); White Blood Count 5.22 K/uL (4.8-10.8)
[2021-04-21 07:05] LABS: Alanine Aminotransferase 19 U/L (12-78); Albumin Level 2.8 gm/dl (3.4-5.0); Aspartate Aminotransferase 23 U/L (15-37); BUN Creatinine Ratio 11.4 (10-20); Blood Urea Nitrogen 10 mg/dl (7-18); Calcium 9.4 mg/dl (8.5-10.1); Carbon Dioxide 29 mmol/L (21-32); Chloride 104 mmol/L (98-107); Creatinine Clr Calc Pharmacy 55.9 ml/min; Est GFR (African American) 83.3 ml/min; Est GFR (Non-African American) 71.9 ml/min; Glucose 84 mg/dl (70-99); Potassium 3.9 mmol/L (3.5-5.1); Sodium 138 mmol/L (136-145)
[2021-04-21 07:10] LABS: Albumin Globulin Ratio 0.8 (0.9-2); Alkaline Phosphatase 114 U/L (45-117); Bilirubin,Total 0.3 mg/dl (0.2-1); Globulin 3.6 gm/dl (2.5-4.0); Total Protein 6.4 gm/dl (6.4-8.2); Troponin I < 0.015 ng/ml (0-0.045)
[2021-04-21] MEDS: CHECK fentaNYL PATCH PLACEMENT SCH (08:06)
[2021-04-21] MEDS ORDERED: fentaNYL 50 MCG/HR TDSY TD SCH ×2 (09:00→21:00)
[2021-04-21] MEDS ORDERED: dilTIAZem ER 180 MG CAPCR PO SCH (09:00)
[2021-04-21] MEDS ORDERED: PANTOprazole 40 MG TAB PO SCH (09:00)
[2021-04-21] MEDS ORDERED: SODIUM CHLORIDE 0.9% 1000ML 1,000 ML IV ONE (10:16)
--- NOTE | 2021-04-21 14:10 | Discharge Summary ---
Date of Service date of admission - April 20, 2021 date of discharge - April 21, 2021 Admission HPI Per Admitting Provider The patient is a 65-year-old female with a past medical history including ovarian cancer, anemia, high output ileostomy, malnutrition, enteritis, short gut syndrome, hypertension, abdominal peritoneal carcinomatosis, YESICA, SBO, cholecystectomy, appendectomy, pulmonary nodules, hyperlipidemia, degenerative cervical disc disease, adult situational stress disorder, and SVT. She was referred to the ED after outpatient CT of the chest showed bilateral pulmonary emboli. Despite such she reports no significant dyspnea on exertion or shortness of breath. She does report bilateral medial lower extremity pain from knees to groin. Principal Diagnosis 1. Bilateral pulmonary emboli 2. Ovarian cancer with carcinomatosis Discharge Exam Constitutional + thin; no altered mental status ENMT external ear and nose normal, oropharynx normal Respiratory normal respiratory effort, lungs clear to auscultation Cardiovascular Rate/Rhythm: regular rate and regular rhythm Heart Sounds: normal S1 and normal S2; no murmur Vessels: posterior tibial pulses present and dorsalis pedis pulses present; no JVD Extremities: no edema Gastrointestinal (Abdomen) Inspection/Auscultation: + abdomen distended and normal bowel sounds Percussion/Palpation: abdomen nontender, no guarding and no hepatosplenomegaly ileostomy in place, left abdomen, with liquid stool; mucous fistula covered with optifoam dressing Skin + pallor Neurologic deep tendon reflexes 2+ bilaterally (arms/legs) and moves all extremities (5/5 strength upper and lower extremities ) Psychiatric Orientation: alert and oriented x 3 Discharge Data Allergies Allergy/AdvReac Type Severity Reaction Status Date / Time cashew nut Allergy Severe ANAPHYLAXIS Verified 04/20/21 16:13 pecan nut Allergy Severe ANAPHYLAXIS Verified 04/20/21 16:13 walnut Allergy Severe ANAPHYLAXIS Verified 04/20/21 16:13 Beef Containing Products Allergy Intermediate itch hives Verified 04/20/21 16 :13 corn Allergy Mild itch Verified 04/20/21 16:13 shellfish derived Allergy Mild TESTED Verified 04/20/21 16:13 POSTITIVE ON SCRATCH TEST chicken derived Allergy Unknown Unknown Verified 04/20/21 16:13 gluten Allergy Unknown Unknown Verified 04/20/21 16:13 hazelnut Allergy Unknown unknown Verified 04/20/21 16:13 per testing Histamine H2 Inhibitors Allergy Unknown unknown Verified 04/20/21 16:13 per tesing peas Allergy Unknown unknown Verified 04/20/21 16:13 per testing pistachio nut Allergy Unknown unknown Verified 04/20/21 16:13 per testing scallops Allergy Unknown unknown Verified 04/20/21 16:13 per testing shrimp Allergy Unknown unknown Verified 04/20/21 16:13 per testing wheat Allergy Unknown Unknown Verified 04/20/21 16:13 Ordered Studies 1. bilateral lower extremity venous dopplers -- negative for DVT. 2. CT chest/abdomen/pelvis - performed just prior to ED presentation - IMPRESSION: 1. There is extensive bilateral pulmonary embolus, with segmental and subsegmental emboli seen within all pulmonary lobes. 2. There is no evidence of intrathoracic metastatic disease. 3. Trace pleural effusions. 4. Again seen are findings of extensive peritoneal carcinomatosis. Tumor bulk does not appear significantly decreased; however, it is difficult to definitively compared to previous due to differences in the distribution of peritoneal fluid. 5. Retroperitoneal lymphadenopathy is again noted. This appears increasingly necrotic as compared to previous. 6. 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 7. There is no bowel obstruction, as enteric contrast reaches the ostomy. Mild diffuse distention of the small bowel is likely related to peritoneal carcinomatosis. 8. Mild bilateral hydronephrosis is new from previous and likely related to metastatic disease. Hospital Course (1) Pulmonary embolism: Bilateral extensive pulmonary emboli as noted on CT scan done as outpatient just prior to admission. Dopplers of both legs negative for DVT. Stable vitals throughout the brief hospital stay. No evidence of right heart strain on examination or imaging. COVID testing was negative. Due to concerns of absorption of oral medications in the setting of short gut and ileostomy status lovenox injections were chosen as her anticoagulation over a DOAC. She was given her first dose of lovenox on 04/20/21. At discharge she will take lovenox 1.5mg/kg daily -- thus, 80mg once daily of SC lovenox. O2 sats at rest and with exertion were NORMAL during her stay. She will likely need to take the lovenox indefinitely given her high risk of recurrent VTE. (2) High output ileostomy: No issues during her brief stay although her chronically low magnesium level is likely due to such. See below. (3) Carcinomatosis: Severe on CT abd/pelvis. With resulting chronic pain syndrome. Fentanyl patch was increased to 50 mcg [id number] about 1 week ago as an outpatient due to abdominal pain from the carcinomatosis. Continue fentanyl patch + oxycodone prn. (4) Ovarian cancer: Follows with [facility]. Advise follow-up with Ana Maria Hoyt in the cancer center within a week of discharge. (5) Hypomagnesemia: Repleted and normal prior to discharge. However, a review of the record shows chronically low levels, likely due to GI losses via ostomy. Sent home with mag oxide 400mg once daily. (6) Hydronephrosis: Mild, bilateral, seen on CT abd/pelvis on 04/20. Likely 2nd to compression from carcinomatosis. Creatinine stable at this time, however (cr = 0.8). Creatinine should be followed carefully as outpatient. If the creatinine rises in the future she may need stenting to prevent obstruction. (7) SVT (supraventricular tachycardia): None seen on telemetry while here. Continue diltiazem 180 mg daily. (8) Hypertension: Controlled during her brief stay. Total Time Total Time Spent Total Time Spent (In Minutes): 35 Total Time Includes: Examination of the Patient, Discharge Planning, Medication Reconciliation and Communication With Other Providers Discharge Plan Discharge Items Patient Disposition: Home - Self-Care Reason For Visit: Bilateral Pulmonary Emboli Discharge Diagnosis: 1. bilateral pulmonary emboli (blood clots in the lungs) - due to your cancer. 2. no evidence of any DVT blood clots in your legs. 3. ovarian cancer. Activity: As commented below Activity Comment: no heavy exertional activity for 3-5 days, then GRADUALLY increase activity Non-emergency contact: Primary Care Provider and Oncologist Call non-emergency contact if: you have any medication questions, your pain is not controlled, your pain is worsening and you have a fever Follow-up/Referrals: Jonah Shannon MD [Primary Care Provider] - Ana Maria Hoyt CRNP [Nurse Practitioner] - (follow-up as scheduled with Ms Hoyt ) Diet: Regular Addtl Attending Provider Instructions: Ms Thornton, [place] were admitted to the hospital after blood clots in your lungs (pulmonary emboli) were discovered on an outpatient CT scan of the lungs. You received lovenox injections while here for the blood clots. Studies of your legs did not reveal any DVT blood clots. Your oxygen levels at rest and with activity were normal. The cause of your pulmonary emboli is due to "thickening" of the blood from your cancer. At this time please -- 1. take enoxaparin (lovenox) injection 80mg once daily every morning. 2. start on FRIDAY am, 04/22/21. The shot lasts for about 24 hours. 3. you will remain on the enoxaparin shots likely indefinitely. 4. please see blood thinner instructions below. 5. the main side effect of blood thinners is bleeding. If you experience any gastrointestinal bleeding (blood in your ostomy), blood in your urine, heavy nose bleeding, etc please let your doctors/providers know right away. With respect to the pain in your legs this could be due to low magnesium, troubles with your lumbar spine, or compression of structures in your pelvis from the cancer. If the leg pain persists please let your doctors know. Finally, your magnesium levels have been low for some time, likely due to loss of magnesium via your ostomy. It would be best to supplement this. I have called magnesium in to the pharmacy for you. Please take daily. Follow-up - see Ms Hoyt within the next week Return to [facility] if - * you have uncontrolled abdominal pain * you have concerns for bleeding * you have worsening shortness of breath * any other concerns I enjoyed meeting you and please stay well, -Dr Hernandez Addtl Javascript Front End Developer Provider Instructions: Pulmonary Emboli (blood clots) - Medication Instructions Your condition is typically treated with an anticoagulant ("blood thinner"). Anticoagulants will thin your blood to help prevent new clots. Your blood thinner is Enoxaparin (lovenox). * You should take her medication exactly as directed. * Never skip a dose. * Never take a double dose. If you miss a dose, take it as soon as you remember. Call your Primary Care doctor or oncologist if you experience any of the following: * Swelling or Pain in your leg * Sudden, continuous pain deep in a muscle * Pain that worsens when you are active or when you stand still for a long time * Chest Pain * Sudden Shortness of Breath * Rapid or pounding heart beat * Fainting * Dizziness * Cough with blood or bloody sputum * Sweating more than normal * Bruises * Heavy or uncontrolled bleeding * Blood in your urine, stool or vomit * Black or tarry stools * Heavy nose bleeding Caring for Your Self at Home: * Avoid sitting, standing or lying down for long periods without moving your legs and feet * When traveling by car, stop to get out and move around at least once every 3 hours * On long airplane, train or bus rides, get up and move around when possible * If you can't get up, wiggle your toes and tighten your calves to keep your blood moving Pending Studies at Discharge: No Stand-Alone Forms: My [facility] [place], Smoking Cessation Medications and DC Order Prescriptions: New enoxaparin [Lovenox] 80 mg/0.8 mL syringe 80 mg subcut QAM Qty: 24 RF: 5 magnesium oxide 400 mg magnesium tablet 400 mg PO DAILY Qty: 30 RF: 5 Continued epinephrine [EpiPen] 0.3 mg/0.3 mL Auto-Injector 0.3 mg IM DIRECTED PRN (Reason: Allergic Reaction) RF: 0 diltiazem HCl 180 mg capsule,extended release 24 hr 180 mg PO DAILY RF: 0 fentanyl 50 mcg/hr patch 72 hour 50 mcg transdermal Q72H RF: 0 pantoprazole 40 mg tablet,delayed release (DR/EC) 40 mg PO DAILY RF: 0 diphenhydramine HCl [Benadryl] 25 mg Capsule 25 mg PO DIRECTED PRN (Reason: NEEDED) RF: 0 oxycodone 10 mg tablet 10 mg PO .Q4-6HR PRN (Reason: Pain) RF: 0 Otc Laxative 1 tab PO DIRECTED PRN (Reason: Constipation) RF: 0 Discharge Orders: Discharge Order (Routine); Ordered 04/21/21 Ordered By: Pierre Hernandez Admission Data Admit Date/Time: 04/20/21 20:32 Attending Provider: Pierre Hernandez Admit Provider: Jorge Oseguera Primary Care Provider: Jonah Shannon Other Providers: Jorge Oseguera Other Interventions: Discharge Summary Assessment (RN) Last Done: 04/21/21 14:10 Coding Level of Care Code D/C Day Management >30 mins Diagnoses Pulmonary embolism I26.99 Acute cor pulmonale presence: without acute cor pulmonale Chronicity: acute Pulmonary embolism type: other High output ileostomy R19.8; Z93.2 Carcinomatosis C80.0 Ovarian cancer C56.9 Hypomagnesemia E83.42 Hydronephrosis N13.30 SVT (supraventricular tachycardia) I47.1 Hypertension I10
--- NOTE | 2021-04-23 12:11 | Electrocardiogram Report ---
Test Reason : Blood Pressure : / mmHG Vent. Rate : 079 BPM Atrial Rate : 079 BPM P-R Int : 160 ms QRS Dur : 074 ms QT Int : 376 ms P-R-T Axes : 062 009 037 degrees QTc Int : 431 ms Normal sinus rhythm Low voltage QRS Septal infarct , age undetermined Abnormal ECG When compared with ECG of 12-FEB-2021 20:18, Septal infarct is now Present Confirmed by Phil Herr ([id number]) on 04/23/2021 12:11:37 PM Referred By: Confirmed By:Phil Herr
--- NOTE | 2021-04-23 13:07 | Electrocardiogram Report ---
Test Reason : Blood Pressure : / mmHG Vent. Rate : 070 BPM Atrial Rate : 070 BPM P-R Int : 164 ms QRS Dur : 080 ms QT Int : 396 ms P-R-T Axes : 063 002 049 degrees QTc Int : 427 ms Normal sinus rhythm Normal ECG When compared with ECG of 20-APR-2021 15:18, (unconfirmed) Criteria for Septal infarct are no longer Present Nonspecific T wave abnormality no longer evident in Anterior leads Confirmed by Phil Herr ([id number]) on 04/23/2021 1:06:53 PM Referred By: REFERRED SELF Confirmed By:Phil Herr
== END 2021-04-21 14:55 | disposition home or self-care (01) ==
LOC: ED 14:30 → 2S 20:32 → SUATTDRO 20:32 → INTOOBSV 20:32 → 2S 20:59